=== PATIENT | male | born 1965 | race Caucasian/White ===

== ENCOUNTER 2016-07-14 22:58 | Inpatient (IN) ==
[2016-07-15 01:24] LABS: Basophils # 0.1 K/mcL (0.0-0.2); Basophils % 0.7 %; Eosinophils # 0.5 K/mcL (0.0-0.6); Eosinophils % 4.5 %; Hematocrit 40.6 % (37.5-50.1); Hemoglobin 13.3 g/dL (12.9-16.9); Immature Granulocytes % 0.4 % (0-4); Immature Platelets 1.8 % (1.1-6.1); Lymphocytes # 3.3 K/mcL (0.6-4.6); Lymphocytes % 32.2 %; Mean Corpuscular HGB Conc 32.8 g/dL (31.6-35.5); Mean Corpuscular Hemoglobin 28.9 pg (28.0-33.3); Mean Corpuscular Volume 88.3 fL (83.0-100.0); Mean Platelet Volume 10.1 fL (9.4-12.4); Monocytes # 0.6 K/mcL (0.0-1.3); Monocytes % 5.5 %; Neutrophils # 5.8 K/mcL (1.6-8.9); Platelet Count 339 K/mcL (140-400); Segmented Neutrophils % 56.7 %
[2016-07-15 01:30] LABS: Prothrombin Time 10.5 Seconds (9.4-12.1)
[2016-07-15 01:32] LABS: Activated Partial Thrombo Time 34.2 Seconds (26.0-36.0)
[2016-07-15 01:36] LABS: Calcium 9.2 mg/dL (8.6-10.8)
[2016-07-15 01:37] LABS: Albumin 3.8 g/dL (3.5-5.0); Bilirubin,Direct 0.1 mg/dL (0.0-0.5); Bilirubin,Indirect 0.1 mg/dL (0.0-1.2); Bilirubin,Total 0.2 mg/dL (0.2-1.2); Globulin 3.7 g/dL (2.4-3.5); Total Protein 7.5 g/dL (6.0-8.3)
[2016-07-15 01:52] LABS: Bilirubin,Urine Negative (Negative); Blood,Urine Negative (Negative); Clarity,Urine Clear (Clear); Color,Urine Yellow (Yellow); Glucose,Urine (UA) >=1000 mg/dL (Normal); Ketones,Urine Negative (Negative); Leukocyte Esterase,Urine Negative (Negative); Nitrite,Urine Negative (Negative); PH,Urine 5.5 pH Units (5.0-8.0); Protein,Urine Negative (Neg-Trace); Specific Gravity,Urine 1.025 (1.010-1.025); Urobilinogen,Urine Normal (Normal)
[2016-07-15] MEDS ORDERED: Albuterol 2.5 MG/3 ML NEBULIZER IH ONE (01:53)
[2016-07-15] MEDS ORDERED: Insulin Human Regular 10 UNIT in 0.9 % Sodium Chloride 10 ML IV ONE (01:53)
[2016-07-15] MEDS ORDERED: Calcium Gluconate 1,000 MG in D5% in Water 100 ML IVPB ONE (01:53)
[2016-07-15] MEDS: Sodium Bicarbonate 50 MEQ/50 ML VIAL IVP ONE ×2 (02:55→02:56)
[2016-07-15] MEDS ORDERED: Sodium Bicarbonate 50 MEQ/50 ML VIAL IVP ONE (03:52)
[2016-07-15] MEDS ORDERED: Lactulose Oral Soln 20 GM/30 ML UDC PO ONE (03:53)
[2016-07-15] MEDS: Sodium Bicarbonate 75 MEQ in 0.45 % Sodium Chloride 1,000 ML IVC SCH ×3 (04:34→21:38)
[2016-07-15] MEDS ORDERED: Naloxone 0.4 MG/ML INJ IVP PRN (05:06)
[2016-07-15] MEDS ORDERED: *HR* Promethazine 25 MG/ML VIAL IVP PRN (05:06)
[2016-07-15] MEDS ORDERED: Acetaminophen 325 MG TABLET PO PRN (05:06)
--- NOTE | 2016-07-15 05:15 | Emergency Department Note ---
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 Location: other (no pain, no complaints) Pain Scale: 0 Improves with: nothing Worsens with: nothing Associated symptoms: Reports: denies other symptoms Treatments Prior to Arrival: none - Related Data Previous Rx's Medication Instructions Recorded Albuterol Sulfate [Proair 90 mcg IH 4-6XD PRN 14 Days 06/02/15 Respiclick] Doxycycline 100 mg PO BID 7 Days 06/02/15 Ibuprofen [Motrin] 400 mg PO Q6HR 10 Days 06/02/15 Albuterol Sulfate [Albuterol 1 puff IH Q4H #1 inhaler 08/06/15 Inhaler] D-Methorphan Hb/P-Epd HCl/Bpm 5 ml PO TID #240 syrup 08/06/15 [Bromfed Dm Cough Syrup] Levofloxacin [Levaquin] 500 mg PO DAILY #7 tablet 08/06/15 TraMADol [Ultram] 50 mg PO TID #10 tablet 08/06/15 Amoxicillin/Clavulanate [Augmentin] 875 mg PO BIDWM 7 Days 08/12/15 Hydrocodone/Acetaminophen [[place] 1 tab PO QID PRN #10 tab 02/26/16 5-325 Tablet] Ibuprofen [Motrin] 600 mg PO TID PRN #30 tab 02/26/16 Hydrocodone/Acetaminophen [[place] 1 tab PO TID PRN #12 tab 03/12/16 5-325 Tablet] Naproxen [Naprosyn] 500 mg PO BID #20 tablet 03/12/16 Cephalexin [Keflex] 500 mg PO QID #40 capsule 05/09/16 HYDROcodone/Acet 5/325 mg [[place] 1 tab PO Q6H PRN #10 tab 05/09/16 5-325 mg] Cephalexin [Keflex] 500 mg PO BID #20 capsule 07/06/16 Sulfamethoxazole/Trimeth DS 1 each PO BID #20 tablet 07/06/16 [Bactrim DS] Allergies Allergy/AdvReac Type Severity Reaction Status Date / Time codeine Allergy Hives Verified 07/06/16 21:35 pregabalin [From Lyrica] Allergy Hives Verified 07/06/16 21:35 All systems ED: reviewed and negative except as stated. Constitutional: Denies: fever, chills, weakness, weight change, night sweats Eyes: Denies: vision change ENT ED: Denies: epistaxis, congestion, dysphagia Cardiovascular: Denies: chest pain, palpitations, dyspnea on exertion, orthopnea , edema, syncope Respiratory: Denies: cough, dyspnea, wheezes Gastrointestinal: Denies: abdominal pain, nausea, vomiting, diarrhea Genitourinary: Denies: urgency, dysuria, frequency, hematuria Musculoskeletal: Denies: back pain, neck pain, joint swelling Integumentary: Reports: other (healing wound on hand that was infected. Patient was given Bactrim and Keflex. He is still taking these antibiotics). Denies: rash Neurological: Denies: headache, weakness, numbness, paresthesias, confusion, abnormal gait, vertigo Endocrine: Denies: fatigue Hematological/Lymphatic: Denies: easy bleeding, easy bruising Allergic/Immunologic: Denies: facial swelling, urticaria, itchy eyes Past Medical History - Past Medical History Attestation: Yes The following information was validated with the patient. Source: patient Medical history: Reports: arthritis, CHF, COPD, CVA, diabetes, glaucoma, hyperlipidemia, hypertension, renal disease Surgical history: Reports: angioplasty/stent, appendectomy, cataract, herniorrhaphy Psychiatric history: Reports: anxiety, depression - Social History Smoking Status: Current every day smoker Smokeless Tobacco Status: No Alcohol use: Reports: rarely Drug use: Reports: none Physical Exam - General Limitations: no limitations General appearance: alert, in no apparent distress - Head Head exam: atraumatic, normocephalic, normal inspection - Eye Eye exam: Present: normal appearance, PERRL, EOMI. Absent: scleral icterus, conjunctival injection, periorbital swelling - ENT ENT exam: mucous membranes moist - Neck Neck exam: Present: normal inspection, full ROM, trachea midline - Chest Chest inspection: Present: normal inspection, symmetric chest wall rise - Respiratory Respiratory exam: Present: normal lung sounds bilaterally. Absent: respiratory distress - Cardiovascular Cardiovascular exam: Present: regular rate, normal rhythm, normal heart sounds - Abdominal Exam Abdominal exam: Present: soft, Non-Tender. Absent: distention, guarding, rebound, rigidity, mass - Extremities Exam Extremities exam: Present: full ROM, normal capillary refill, other (healing wound on hand). Absent: tenderness - Neurological Exam Neurological exam: Present: alert, oriented X3, CN II-XII intact - Psychiatric Psychiatric exam: Present: normal affect, normal mood - Skin Skin exam: Present: warm, dry, intact, normal color Course Course Narrative: patient presents at the recommendation of Dr. Francois - Intelligence Officer. He called the patient at home around 10pm and told him to go to the ER because his potassium was high. It was reportedly 7.5 earlier today. Patient denies any complaints. He has no pain he has had no N/V/D. He was recently started on two ABX. He denies any other new meds. Will check labs and treat hyperkalemia. Patient's K is 8, glucose is high and sodium is low. Order was given for insulin - along with other meds. Patient states that he gave himself 10.3 units of insulin via his pump when he found out that his sugar was >400. Hospitalist has been paged. Patient accepted. Additional medications requested by Hospitalist. These have been ordered. Case discussed with Dr. NARVAEZ as well. He has seen the patient and agrees with the plan. Vital Signs Temperature 97.4 F L 07/14/16 23:00 Pulse Rate 100 07/14/16 23:00 Respiratory Rate 16 07/14/16 23:00 Blood Pressure 130/73 07/14/16 23:00 O2 Sat by Pulse Oximetry 96 07/14/16 23:00 Temperature 97.4 F L 07/14/16 23:00 Pulse Rate 80 07/15/16 03:52 Respiratory Rate 22 07/15/16 03:52 Blood Pressure 123/90 07/15/16 03:52 O2 Sat by Pulse Oximetry 96 07/15/16 03:52 Oxygen Delivery Oxygen Delivery Room Air Medical Decision Making - Medical Records Medical records reviewed: Yes I reviewed the patient's medical records. - Lab Data Lab results reviewed: Yes I reviewed the patient's lab results. Lab results narrative: Laboratory Last Values WBC 10.2 K/mcL (4.3-11.1) 07/15/16 01:18 RBC 4.60 M/mcL (4.19-5.50) 07/15/16 01:18 Hgb 13.3 g/dL (12.9-16.9) 07/15/16 01:18 Hct 40.6 % (37.5-50.1) 07/15/16 01:18 MCV 88.3 fL (83.0-100.0) 07/15/16 01:18 MCH 28.9 pg (28.0-33.3) 07/15/16 01:18 MCHC 32.8 g/dL (31.6-35.5) 07/15/16 01:18 RDW 14.0 % (11.5-14.5) 07/15/16 01:18 Plt Count 339 K/mcL (140-400) 07/15/16 01:18 MPV 10.1 fL (9.4-12.4) 07/15/16 01:18 Immature Gran % 0.4 % (0-4) 07/15/16 01:18 Seg Neutrophils % 56.7 % 07/15/16 01:18 Lymphocytes % 32.2 % 07/15/16 01:18 Monocytes % 5.5 % 07/15/16 01:18 Eosinophils % 4.5 % 07/15/16 01:18 Basophils % 0.7 % 07/15/16 01:18 Neutrophils # 5.8 K/mcL (1.6-8.9) 07/15/16 01:18 Lymphocytes # 3.3 K/mcL (0.6-4.6) 07/15/16 01:18 Monocytes # 0.6 K/mcL (0.0-1.3) 07/15/16 01:18 Eosinophils # 0.5 K/mcL (0.0-0.6) 07/15/16 01:18 Basophils # 0.1 K/mcL (0.0-0.2) 07/15/16 01:18 Immature Plt Fraction 1.8 % (1.1-6.1) 07/15/16 01:18 PT 10.5 Seconds (9.4-12.1) 07/15/16 01:18 INR 1.0 07/15/16 01:18 APTT 34.2 Seconds (26.0-36.0) 07/15/16 01:18 Sodium 128 mEq/L (136-145) L 07/15/16 01:18 Potassium 8.0 mEq/L (3.5-4.5) H* 07/15/16 01:18 Chloride 106 mEq/L (98-109) 07/15/16 01:18 Carbon Dioxide 14 mEq/L (19-29) L 07/15/16 01:18 BUN 37 mg/dL (8-26) H 07/15/16 01:18 Creatinine 2.41 mg/dL (0.72-1.25) H 07/15/16 01:18 Est GFR ( Amer) 34 (> 60) L 07/15/16 01:18 Est GFR (Non-Af Amer) 28 (> 60) L 07/15/16 01:18 BUN/Creatinine Ratio 15 (6-26) 07/15/16 01:18 Glucose 411 mg/dL (70-99) H 07/15/16 01:18 Calculated Osmolality 292 (280-300) 07/15/16 01:18 Calcium 9.2 mg/dL (8.6-10.8) 07/15/16 01:18 Total Bilirubin 0.2 mg/dL (0.2-1.2) 07/15/16 01:18 Direct Bilirubin 0.1 mg/dL (0.0-0.5) 07/15/16 01:18 Indirect Bilirubin 0.1 mg/dL (0.0-1.2) 07/15/16 01:18 AST 14 Units/L (5-34) 07/15/16 01:18 ALT 12 Units/L (0-55) 07/15/16 01:18 Alkaline Phosphatase 108 Units/L (38-126) 07/15/16 01:18 Troponin I 0.00 ng/mL (0-0.03) 07/15/16 01:18 B-Natriuretic Peptide < 10 pg/mL (0-100) 07/15/16 01:18 Serum Total Protein 7.5 g/dL (6.0-8.3) 07/15/16 01:18 Albumin 3.8 g/dL (3.5-5.0) 07/15/16 01:18 Globulin 3.7 g/dL (2.4-3.5) H 07/15/16 01:18 Albumin/Globulin Ratio 1.0 (1.1-2.2) L 07/15/16 01:18 Urine Color Yellow (Yellow) 07/15/16 01:48 Urine Clarity Clear (Clear) 07/15/16 01:48 Urine pH 5.5 pH Units (5.0-8.0) 07/15/16 01:48 Ur Specific [place] 1.025 (1.010-1.025) 07/15/16 01:48 Urine Protein Negative mg/dL (Neg-Trace) 07/15/16 01:48 Urine Glucose (UA) >=1000 mg/dL (Normal) H 07/15/16 01:48 Urine Ketones Negative mg/dL (Negative) 07/15/16 01:48 Urine Blood Negative (Negative) 07/15/16 01:48 Urine Nitrite Negative (Negative) 07/15/16 01:48 Urine Bilirubin Negative (Negative) 07/15/16 01:48 Urine Urobilinogen Normal mg/dL (Normal) 07/15/16 01:48 Ur Leukocyte Esterase Negative (Negative) 07/15/16 01:48 Ur Culture Indicated? NO (NO) 07/15/16 01:48 Result diagrams: 07/15/16 01:18 07/15/16 01:18 Lab Results 07/15/16 07/15/16 07/15/16 Range/Units 01:18 01:18 01:18 WBC (4.3-11.1) K/mcL RBC (4.19-5.50) M/mcL Hgb (12.9-16.9) g/dL Hct (37.5-50.1) % MCV (83.0-100.0) fL MCH (28.0-33.3) pg MCHC (31.6-35.5) g/dL RDW (11.5-14.5) % Plt Count (140-400) K/mcL MPV (9.4-12.4) fL Immature Gran % (0-4) % Seg Neutrophils % % Lymphocytes % % Monocytes % % Eosinophils % % Basophils % % Neutrophils # (1.6-8.9) K/mcL Lymphocytes # (0.6-4.6) K/mcL Monocytes # (0.0-1.3) K/mcL Eosinophils # (0.0-0.6) K/mcL Basophils # (0.0-0.2) K/mcL Immature Plt Fraction (1.1-6.1) % PT 10.5 (9.4-12.1) Seconds INR 1.0 APTT 34.2 (26.0-36.0) Seconds Sodium (136-145) mEq/L Potassium (3.5-4.5) mEq/L Chloride (98-109) mEq/L Carbon Dioxide (19-29) mEq/L BUN (8-26) mg/dL Creatinine (0.72-1.25) mg/dL Est GFR ( Amer) (> 60) Est GFR (Non-Af Amer) (> 60) BUN/Creatinine Ratio (6-26) Glucose (70-99) mg/dL Calculated Osmolality (280-300) Calcium (8.6-10.8) mg/dL Total Bilirubin 0.2 (0.2-1.2) mg/dL Direct Bilirubin 0.1 (0.0-0.5) mg/dL Indirect Bilirubin 0.1 (0.0-1.2) mg/dL AST 14 (5-34) Units/L ALT 12 (0-55) Units/L Alkaline Phosphatase 108 (38-126) Units/L Troponin I (0-0.03) ng/mL B-Natriuretic Peptide < 10 (0-100) pg/mL Serum Total Protein 7.5 (6.0-8.3) g/dL Albumin 3.8 (3.5-5.0) g/dL Globulin 3.7 H (2.4-3.5) g/dL Albumin/Globulin Ratio 1.0 L (1.1-2.2) Urine Color (Yellow) Urine Clarity (Clear) Urine pH (5.0-8.0) pH Units Ur Specific [place] (1.010-1.025) Urine Protein (Neg-Trace) mg/dL Urine Glucose (UA) (Normal) mg/dL Urine Ketones (Negative) mg/dL Urine Blood (Negative) Urine Nitrite (Negative) Urine Bilirubin (Negative) Urine Urobilinogen (Normal) mg/dL Ur Leukocyte Esterase (Negative) Ur Culture Indicated? (NO) 07/15/16 07/15/16 07/15/16 Range/Units 01:18 01:18 01:18 WBC 10.2 (4.3-11.1) K/mcL RBC 4.60 (4.19-5.50) M/mcL Hgb 13.3 (12.9-16.9) g/dL Hct 40.6 (37.5-50.1) % MCV 88.3 (83.0-100.0) fL MCH 28.9 (28.0-33.3) pg MCHC 32.8 (31.6-35.5) g/dL RDW 14.0 (11.5-14.5) % Plt Count 339 (140-400) K/mcL MPV 10.1 (9.4-12.4) fL Immature Gran % 0.4 (0-4) % Seg Neutrophils % 56.7 % Lymphocytes % 32.2 % Monocytes % 5.5 % Eosinophils % 4.5 % Basophils % 0.7 % Neutrophils # 5.8 (1.6-8.9) K/mcL Lymphocytes # 3.3 (0.6-4.6) K/mcL Monocytes # 0.6 (0.0-1.3) K/mcL Eosinophils # 0.5 (0.0-0.6) K/mcL Basophils # 0.1 (0.0-0.2) K/mcL Immature Plt Fraction 1.8 (1.1-6.1) % PT (9.4-12.1) Seconds INR APTT (26.0-36.0) Seconds Sodium 128 L (136-145) mEq/L Potassium 8.0 H* (3.5-4.5) mEq/L Chloride 106 (98-109) mEq/L Carbon Dioxide 14 L (19-29) mEq/L BUN 37 H (8-26) mg/dL Creatinine 2.41 H (0.72-1.25) mg/dL Est GFR ( Amer) 34 L (> 60) Est GFR (Non-Af Amer) 28 L (> 60) BUN/Creatinine Ratio 15 (6-26) Glucose 411 H (70-99) mg/dL Calculated Osmolality 292 (280-300) Calcium 9.2 (8.6-10.8) mg/dL Total Bilirubin (0.2-1.2) mg/dL Direct Bilirubin (0.0-0.5) mg/dL Indirect Bilirubin (0.0-1.2) mg/dL AST (5-34) Units/L ALT (0-55) Units/L Alkaline Phosphatase (38-126) Units/L Troponin I 0.00 (0-0.03) ng/mL B-Natriuretic Peptide (0-100) pg/mL Serum Total Protein (6.0-8.3) g/dL Albumin (3.5-5.0) g/dL Globulin (2.4-3.5) g/dL Albumin/Globulin Ratio (1.1-2.2) Urine Color (Yellow) Urine Clarity (Clear) Urine pH (5.0-8.0) pH Units Ur Specific [place] (1.010-1.025) Urine Protein (Neg-Trace) mg/dL Urine Glucose (UA) (Normal) mg/dL Urine Ketones (Negative) mg/dL Urine Blood (Negative) Urine Nitrite (Negative) Urine Bilirubin (Negative) Urine Urobilinogen (Normal) mg/dL Ur Leukocyte Esterase (Negative) Ur Culture Indicated? (NO) 07/15/16 Range/Units 01:48 WBC (4.3-11.1) K/mcL RBC (4.19-5.50) M/mcL Hgb (12.9-16.9) g/dL Hct (37.5-50.1) % MCV (83.0-100.0) fL MCH (28.0-33.3) pg MCHC (31.6-35.5) g/dL RDW (11.5-14.5) % Plt Count (140-400) K/mcL MPV (9.4-12.4) fL Immature Gran % (0-4) % Seg Neutrophils % % Lymphocytes % % Monocytes % % Eosinophils % % Basophils % % Neutrophils # (1.6-8.9) K/mcL Lymphocytes # (0.6-4.6) K/mcL Monocytes # (0.0-1.3) K/mcL Eosinophils # (0.0-0.6) K/mcL Basophils # (0.0-0.2) K/mcL Immature Plt Fraction (1.1-6.1) % PT (9.4-12.1) Seconds INR APTT (26.0-36.0) Seconds Sodium (136-145) mEq/L Potassium (3.5-4.5) mEq/L Chloride (98-109) mEq/L Carbon Dioxide (19-29) mEq/L BUN (8-26) mg/dL Creatinine (0.72-1.25) mg/dL Est GFR ( Amer) (> 60) Est GFR (Non-Af Amer) (> 60) BUN/Creatinine Ratio (6-26) Glucose (70-99) mg/dL Calculated Osmolality (280-300) Calcium (8.6-10.8) mg/dL Total Bilirubin (0.2-1.2) mg/dL Direct Bilirubin (0.0-0.5) mg/dL Indirect Bilirubin (0.0-1.2) mg/dL AST (5-34) Units/L ALT (0-55) Units/L Alkaline Phosphatase (38-126) Units/L Troponin I (0-0.03) ng/mL B-Natriuretic Peptide (0-100) pg/mL Serum Total Protein (6.0-8.3) g/dL Albumin (3.5-5.0) g/dL Globulin (2.4-3.5) g/dL Albumin/Globulin Ratio (1.1-2.2) Urine Color Yellow (Yellow) Urine Clarity Clear (Clear) Urine pH 5.5 (5.0-8.0) pH Units Ur Specific [place] 1.025 (1.010-1.025) Urine Protein Negative (Neg-Trace) mg/dL Urine Glucose (UA) >=1000 H (Normal) mg/dL Urine Ketones Negative (Negative) mg/dL Urine Blood Negative (Negative) Urine Nitrite Negative (Negative) Urine Bilirubin Negative (Negative) Urine Urobilinogen Normal (Normal) mg/dL Ur Leukocyte Esterase Negative (Negative) Ur Culture Indicated? NO (NO) - Radiology Data Radiology results reviewed: Yes I reviewed the patient's radiology results. Chest X-Ray 07/15/16 01:04 IMPRESSION: Negative portable chest. D/ / Meng Melgoza MD / Meng Melgoza MD Interpreting Provider: Meng Melgoza MD - EKG Data EKG #1 EKG attestation: Yes I reviewed and interpreted this EKG. EKG shows normal: sinus rhythm Rate: normal Rhythm: NSR [place]/QRS: normal When compared to previous EKG there are: previous EKG unavailable Interpretation: other (normal except for peaked T waves)
--- NOTE | 2016-07-15 05:54 | Internal Med History&Physical ---
Date of Encounter: 07/15/16 Time of Encounter: 05:00 Assessment and Plan (1) Acute kidney injury superimposed on CKD Current visit: Yes Status: Acute . (2) Uncontrolled diabetes mellitus Current visit: Yes Status: Acute . Qualifiers: Diabetes mellitus type: type 1 Diabetes mellitus complication status: with kidney complications Diabetes mellitus complication detail: with other kidney complication Qualified Code(s): E10.29 - Type 1 diabetes mellitus with other diabetic kidney complication; E10.65 - Type 1 diabetes mellitus with hyperglycemia (3) Metabolic acidosis Current visit: Yes Status: Acute . (4) Hyponatremia Current visit: Yes Status: Acute . (5) Hyperkalemia Current visit: Yes Status: Acute . (6) H/O noncompliance with medical treatment, presenting hazards to health Current visit: Yes Status: Acute . (7) Nicotine dependence with nicotine-induced disorder Current visit: Yes Status: Chronic . Qualifiers: Nicotine product type: cigarettes Qualified Code(s): F17.219 - Nicotine dependence, cigarettes, with unspecified nicotine-induced disorders Internal Medicine - H&P: HPI Chief complaint: High potassium on blood test Admitted From: Emergency Dept Plans for Post Hospital Care: Home History of present illness: Mr. Stone is a 51 year old male significant history for uncontrolled type 1 diabetes mellitus, H/O rec DKA/ rec hyperkalemias, COPD/emphysema, hypertension , dyslipidemia, CAD/PTCAstents, ischemic CMP/, H/O CVA, GERD, CKD III, BPH/ prostatism, diabetic nephropathy, diabetic peripheral neuropathy, glaucoma, depression anxiety, osteoarthritis, osteopenia, vitamin D deficiency, nicotine dependency The patient was visited and interviewed and examined. The patient is admitted to [facility] via the emergency department when he presents in the company of family with concerns regarding recent abnormal laboratory tests. Recent blood work was obtained by patient's home visitor home base head start to assess his current status. He was informed to present to the emergency department due to very high potassium measurement noted reportedly at 7.5. Patient was asymptomatic at the time of presentation denying any feelings of pain or weakness nausea vomiting lethargy and malaise. The patient had been initiated on oral antibiotic on July 06 to treat a cellulitis of his left hand which included cephalexin and Bactrim DS twice daily for 10 days for presumed MRSA infection. Denied any other new developments or indiscretions. Findings in the ED: Temperature 97.4 pulse 80-100 respirations 16-22 BP 120-130/73-92 saturation 96% at room air. WBC 10.2 hemoglobin 13.3 platelets 339,000. Differential normal. PT 10.5 INR 1 PTT 34.2. Metabolic panel findings sodium 128 potassium 8.0. Carbon dioxide 14. BUN 37 creatinine 2.41 GFR 28. Glucose 411 osmolality 292. Hepatic function normal. Troponin 0.00 BNP 10. Urinalysis large glucose. EKG normal sinus rhythm. No acute ischemic changes. Peaked T waves noted. Chest x-ray reveals no acute or active cardiopulmonary process. Preliminary impression suggests acute on chronic, stage IV renal failure with associated severe metabolic acidosis and severe hyperkalemia. Presentation is complicated by poorly controlled diabetes mellitus with presentation of marked hyperglycemia and glycosuria. Significant metabolic and acid-base derangements are apparent. Systemic inflammatory response criteria met. Allergy for rapid decline in renal function may have been concomitant use of recent antibiotic therapy specifically Bactrim DS in the setting of relative dehydration and potential adverse drug drug interaction with other concomitant medications taken at the time. Further investigation will be pursued. She presents with a risk for acute clinical decline and morbidity given his presenting chief complaint, clinical findings and comorbidities. History is further complicated by reports of inconsistent follow-through with medical treatment recommendations and therapies. Workup and treatments will progress comprehensively Cumulative laboratory and radiographic data base was reviewed, considered and discussed. Pertinent ancillary medical records including ECW and PCI documentation, when available, was reviewed and considered. Given the patient's presenting concerns, past medical history, clinical findings and symptoms, he is admitted at this time will undergo further evaluation and disposition. Orders were written as per computerized physician mill recorder system.......................................................................... .................... Consultative opinion and will be sought as clinical circumstances justify. Initial consultative opinion has been requested of nephrology. Pain management needs will be addressed. Laboratory and radiographic data base will be updated as appropriate. Studies include: Cultures of blood and urine and sputum, CPK, cardiac injury panel, BNP , metabolic and hematologic panel, magnesium, phosphorus, ionized calcium, thyroid panel, lipid profile, A1c, C-peptide, CRP, sedimentation rate, UDS, respiratory infection profile, respiratory virus panel, blood gas, uric acid, random urine assays, amylase, lipase, coagulation profile, lactic acid, serologies, etc. Precautions: Aspiration, fall, seizure, delirium protocol/surveillance initiated. Telemetry with continuous hemodynamic monitoring and pulse oximetry initiated. Empiric antibody coverage: Intravenous Rocephin and azithromycin pending culture data. Special studies: CT abd/pelvis, chest x-ray, telemetry, EKG, bladder scan, postvoid residual, ultrasound retroperitoneum. Pulmonary toilet: Incentive spirometry. When necessary aerosol bronchodilator, mucolytic, antitussive. Supplemental oxygen. Corticosteroid therapy prn. CPAP/ BiPAP supplemental oxygen delivery prn. Aerosol Mucomyst therapy prn. Fluid and electrolyte repletion efforts will proceed. Careful attention to fluid balance and renal recovery will be emphasized. Avoidance of nephrotoxic exposure and adverse drug drug interaction in the setting of impaired renal function will be monitored closely. Correction of metabolic and acid-base deficits will be emphasized. Acute coronary syndrome protocol/surveillance initiated. DVT and PUD prophylaxis initiated: PPI therapy, intermittent pneumatic cuffs/ TEDS. Subcutaneous heparin. Early ambulation will be encouraged. Immunization updates recommended. Influenza and pneumococcal vaccinations as part of ongoing preventative healthcare recommendations strongly recommended. Smoking cessation counseling briefly addressed. Patient accepts nicotine substitution during this hospitalization. Advanced care directive discussion briefly addressed. Patient does not declare any healthcare restrictions at this time. Cardiovascular risk appraisal and cardiovascular risk reduction efforts will be emphasized. Physical and occupational therapy may be consulted to evaluate/assess patient's functional capacity and progress mobility if circumstances warrant. Sliding scale and basal insulin coverage, ADA/renal dietary restraint and schedule an as-needed basis fingerstick glucose assessments were initiated. Nutrition/diabetes education counseling may be considered as circumstances justify. Outpatient medication schedules will be reviewed confirmed and facilitated as appropriate. Reconciliation of home treatments including adjustments, substitutions and reintroduction into the treatment regimen will address necessary maintenance therapies for chronic pre-existing medical conditions. Plan of care has been reviewed and discussed in detail with the patient. Questions addressed. Hospital course is dependent upon collective clinical findings, treatment response and potential consultative interventions. Patient is at risk for further acute clinical decline and morbidity due to his presenting chief complaints, findings and comorbidities. Condition is serious. Prognosis is guarded. CODE STATUS is full. Past Med Surg Social Fam HX - Past Medical History Source: old records reviewed Medical history: arthritis, cardiomyopathy, CHF, COPD, coronary artery disease, CVA, diabetes, GERD, glaucoma, hyperlipidemia, hypertension, myocardial infarction, osteoporosis, peripheral artery disease, renal disease, TIA, other Psychiatric history: anxiety, depression - Past Surgical History Surgical History: angioplasty/stent, appendectomy, cataract, herniorrhaphy, other (Tonsillectomy adenoidectomy) - Social History Smoking Status: Current every day smoker Smokeless Tobacco Status: No Alcohol use: rarely Drug use: none Occupational status: unemployed Current living situation: Home - Independent Activity Level: Independent ambulation, Mostly sedentary Recent Out of Country Travel Within the Last 8 Weeks: No Exposure or Possible Exposure to Illness During Travel: No Internal Medicine - H&P: Meds Albuterol Sulfate [Proair Hfa] 2 puff IH Q4H PRN 07/15/16 [History] Aspirin 325 mg PO DAILY 07/15/16 [History] Atorvastatin Calcium [Lipitor] 80 mg PO HS 07/15/16 [History] Beclomethasone Diprop 40mcg [Qvar 40 mcg] 1 puff IH BID 07/15/16 [History] Carvedilol [Coreg] 6.25 mg PO BIDWM 07/15/16 [History] Cephalexin [Cephalexin] 500 mg PO BID 07/15/16 [History] Clopidogrel [Plavix] 75 mg PO DAILY 07/15/16 [History] Cyclobenzaprine HCl 30 mg PO DAILY 07/15/16 [History] Dorzolamide/Timolol [Cosopt] 1 drop BOTH EYES BID 07/15/16 [History] Escitalopram [Lexapro] 20 mg PO DAILY 07/15/16 [History] Gabapentin [Neurontin] 800 mg PO BID 07/15/16 [History] Glucagon,Human Recombinant [Glucagon Emergency Kit] 1 each IM DAILY PRN [History] Insulin ASPART [Novolog] 40 unit IJ DAILY PRN 07/15/16 [History] Nitroglycerin [Nitrostat] 0.4 mg SL Q5M PRN 07/15/16 [History] Pantoprazole Sodium [Protonix] 40 mg PO DAILY 07/15/16 [History] Sulfamethoxazole/Trimeth DS [Bactrim DS] 1 each PO BID 07/15/16 [History] Allergies codeine Allergy (Verified 07/06/16 21:35) Hives pregabalin [From Lyrica] Allergy (Verified 07/06/16 21:35) Hives All Systems PM: A 10-system review of systems was performed and is negative for pertinent findings except as documented above in the HPI. - Constitutional Constitutional: as per HPI, malaise, no chills, no fever(s), no night sweats - EENT Eyes: as per HPI, no change in vision, no discharge, no pain, no photophobia Ears: as per HPI, no ear discharge, no ear pain, no tinnitus Nose, mouth and throat: as per HPI, no dysphagia, no nasal discharge, no neck pain, no sore throat - Cardiovascular Cardiovascular ROS IM: as per HPI, no chest pain, no diaphoresis, no dyspnea, no lightheadedness, no palpitations, no syncope - Respiratory Respiratory: as per HPI, no cough, no dyspnea, no wheezing, no excessive phlegm production - Gastrointestinal Gastrointestinal: as per HPI, no abdominal pain, no diarrhea, no hematemesis, no hematochezia, no melena, no nausea, no vomiting - Genitourinary Genitourinary ROS male: as per HPI - Musculoskeletal Musculoskeletal ROS IM: as per HPI, no numbness, no tingling - Integumentary Integumentary IM: as per HPI, no rash, no unusual bruising - Neurological Neurological ROS: as per HPI, no confusion, no convulsions, no focal weakness, no numbness, no tingling, no tremor(s) - Psychiatric Psychiatric: as per HPI - Endocrine Endocrine IM: as per HPI - Hematologic/Lymphatic Hematologic/Lymphatic: as per HPI, no easy bruising - Allergic/Immunologic Allergic/Immunologic: as per HPI - Constitutional Vitals: Temp Pulse Resp BP Pulse Ox 97.8 F 80 18 126/88 96 07/15/16 05:42 07/15/16 03:52 07/15/16 05:42 07/15/16 05:42 07/15/16 03:52 General appearance: Present: cooperative, disheveled, mild distress, A&O X 3, answers questions appropriately - Head Head exam: Present: atraumatic, normocephalic - Eye Eye exam: Present: EOMI, PERRL, conjuntiva pink, sclera anicteric Pupils: Present: normal accommodation, PERRL - ENT ENT exam: Present: mucous membranes dry, normal oropharynx - Neck Neck exam general surgery: Present: full ROM, supple, trachea midline. Absent: lymphadenopathy, nuchal rigidity - Respiratory Respiratory exam: Present: chest wall tenderness, decreased breath sounds, rhonchi. Absent: accessory muscle use, rales, wheezes - Cardiovascular Cardiovascular exam: Present: distant heart sounds, RRR, +S1, +S2, tachycardia. Absent: diastolic murmur, gallop, rubs, systolic murmur - GI/Abdominal GI/Abdominal exam: Present: diminished bowel sounds, soft, no peritoneal signs. Absent: distended, tenderness - Extremities Exam Extremities exam: Present: full ROM, warm, radial pulses palpable and symetrical. Absent: calf tenderness, cyanotic, pedal edema - Expanded Upper Extremities Exam Hand wrist exam: Present: abrasion, erythema, full ROM, swelling, tenderness. Absent: crepitus, ecchymosis - Neurological Exam Neurological exam: Present: alert, altered, CN II-XII intact, oriented X3, no focal deficits. Absent: pronater drift, facial droop, speech deficit - Expanded Neurological Exam Neurological exam expanded: Present: protecting the airway. Absent: ataxia, expressive aphasia, receptive aphasia Patient oriented to: Present: person, place, time Speech: Present: fluid speech Coma Scale Eye Opening: Spontaneous Coma Scale Motor Response: Obeys Commands Coma Scale Verbal Response: Oriented Coma Scale Total: 15 - Psychiatric Psychiatric exam: Present: anxious, normal affect - Expanded Psychiatric Exam Focused psych exam: Present: restlessness - Skin Skin exam: Present: dry, excoriation, intact, warm. Absent: petechiae, rash, urticaria, vesicles Internal Med - H&P Results - Labs CBC & Chem 7: 07/15/16 01:18 07/16/16 03:07 - Impressions Vital Signs Temp Pulse Resp BP Pulse Ox 07/15/16 05:42 97.8 F 18 126/88 07/15/16 03:52 80 22 123/90 96 07/15/16 01:18 81 16 107/85 96 07/14/16 23:00 97.4 F L 100 16 130/73 96 Intake and Output 07/14/16 07/14/16 07/15/16 15:59 23:59 07:59 Intake Total 110 / 110 Balance 110 / 110 Intake: IV Fluids 110 / 110 Calcium Gluconate 1,000 110 / 110 MG In Dextrose 5% 100 ML @ 220 mls/hr IVPB ONCE ONE Rx#:[id number] Other: Weight 80.739 kg Short CBC 07/15/16 Range/Units 01:18 WBC 10.2 (4.3-11.1) K/mcL Hgb 13.3 (12.9-16.9) g/dL Hct 40.6 (37.5-50.1) % Plt Count 339 (140-400) K/mcL Neutrophils # 5.8 (1.6-8.9) K/mcL BMP 07/15/16 Range/Units 01:18 Sodium 128 L (136-145) mEq/L Potassium 8.0 H* (3.5-4.5) mEq/L Chloride 106 (98-109) mEq/L Carbon Dioxide 14 L (19-29) mEq/L BUN 37 H (8-26) mg/dL Creatinine 2.41 H (0.72-1.25) mg/dL Glucose 411 H (70-99) mg/dL Calcium 9.2 (8.6-10.8) mg/dL Cardiac Enzymes 07/15/16 Range/Units 01:18 Troponin I 0.00 (0-0.03) ng/mL Liver Function 07/15/16 Range/Units 01:18 Total Bilirubin 0.2 (0.2-1.2) mg/dL Direct Bilirubin 0.1 (0.0-0.5) mg/dL AST 14 (5-34) Units/L ALT 12 (0-55) Units/L Alkaline Phosphatase 108 (38-126) Units/L Albumin 3.8 (3.5-5.0) g/dL Urine 07/15/16 Range/Units 01:48 Urine Color Yellow (Yellow) Urine Clarity Clear (Clear) Urine pH 5.5 (5.0-8.0) pH Units Ur Specific [place] 1.025 (1.010-1.025) Urine Protein Negative (Neg-Trace) mg/dL Urine Glucose (UA) >=1000 H (Normal) mg/dL Abnormal lab results Sodium 128 mEq/L (136-145) L 07/15/16 01:18 Potassium 8.0 mEq/L (3.5-4.5) H* 07/15/16 01:18 Carbon Dioxide 14 mEq/L (19-29) L 07/15/16 01:18 BUN 37 mg/dL (8-26) H 07/15/16 01:18 Creatinine 2.41 mg/dL (0.72-1.25) H 07/15/16 01:18 Est GFR ( Amer) 34 (> 60) L 07/15/16 01:18 Est GFR (Non-Af Amer) 28 (> 60) L 07/15/16 01:18 Glucose 411 mg/dL (70-99) H 07/15/16 01:18 Globulin 3.7 g/dL (2.4-3.5) H 07/15/16 01:18 Albumin/Globulin Ratio 1.0 (1.1-2.2) L 07/15/16 01:18 Urine Glucose (UA) >=1000 mg/dL (Normal) H 07/15/16 01:48 Allergies Allergy/AdvReac Type Severity Reaction Status Date / Time codeine Allergy Hives Verified 07/06/16 21:35 pregabalin [From Lyrica] Allergy Hives Verified 07/06/16 21:35 Laboratory Results WBC 10.2 K/mcL (4.3-11.1) 07/15/16 01:18 RBC 4.60 M/mcL (4.19-5.50) 07/15/16 01:18 Hgb 13.3 g/dL (12.9-16.9) 07/15/16 01:18 Hct 40.6 % (37.5-50.1) 07/15/16 01:18 MCV 88.3 fL (83.0-100.0) 07/15/16 01:18 MCH 28.9 pg (28.0-33.3) 07/15/16 01:18 MCHC 32.8 g/dL (31.6-35.5) 07/15/16 01:18 RDW 14.0 % (11.5-14.5) 07/15/16 01:18 Plt Count 339 K/mcL (140-400) 07/15/16 01:18 MPV 10.1 fL (9.4-12.4) 07/15/16 01:18 Immature Gran % 0.4 % (0-4) 07/15/16 01:18 Seg Neutrophils % 56.7 % 07/15/16 01:18 Lymphocytes % 32.2 % 07/15/16 01:18 Monocytes % 5.5 % 07/15/16 01:18 Eosinophils % 4.5 % 07/15/16 01:18 Basophils % 0.7 % 07/15/16 01:18 Neutrophils # 5.8 K/mcL (1.6-8.9) 07/15/16 01:18 Lymphocytes # 3.3 K/mcL (0.6-4.6) 07/15/16 01:18 Monocytes # 0.6 K/mcL (0.0-1.3) 07/15/16 01:18 Eosinophils # 0.5 K/mcL (0.0-0.6) 07/15/16 01:18 Basophils # 0.1 K/mcL (0.0-0.2) 07/15/16 01:18 Immature Plt Fraction 1.8 % (1.1-6.1) 07/15/16 01: PT 10.5 Seconds (9.4-12.1) 07/15/16 01:18 INR 1.0 07/15/16 01: APTT 34.2 Seconds (26.0-36.0) 07/15/16 01:18 Sodium 128 mEq/L (136-145) L 07/15/16 01:18 Potassium 8.0 mEq/L (3.5-4.5) H* 07/15/16 01:18 Chloride 106 mEq/L (98-109) 07/15/16 01:18 Carbon Dioxide 14 mEq/L (19-29) L 07/15/16 01:18 BUN 37 mg/dL (8-26) H 07/15/16 01:18 Creatinine 2.41 mg/dL (0.72-1.25) H 07/15/16 01:18 Est GFR ( Amer) 34 (> 60) L 07/15/16 01:18 Est GFR (Non-Af Amer) 28 (> 60) L 07/15/16 01:18 BUN/Creatinine Ratio 15 (6-26) 07/15/16 01:18 Glucose 411 mg/dL (70-99) H 07/15/16 01:18 Calculated Osmolality 292 (280-300) 07/15/16 01:18 Calcium 9.2 mg/dL (8.6-10.8) 07/15/16 01:18 Total Bilirubin 0.2 mg/dL (0.2-1.2) 07/15/16 01:18 Direct Bilirubin 0.1 mg/dL (0.0-0.5) 07/15/16 01:18 Indirect Bilirubin 0.1 mg/dL (0.0-1.2) 07/15/16 01:18 AST 14 Units/L (5-34) 07/15/16 01:18 ALT 12 Units/L (0-55) 07/15/16 01:18 Alkaline Phosphatase 108 Units/L (38-126) 07/15/16 01:18 Troponin I 0.00 ng/mL (0-0.03) 07/15/16 01:18 B-Natriuretic Peptide < 10 pg/mL (0-100) 07/15/16 01:18 Serum Total Protein 7.5 g/dL (6.0-8.3) 07/15/16 01:18 Albumin 3.8 g/dL (3.5-5.0) 07/15/16 01:18 Globulin 3.7 g/dL (2.4-3.5) H 07/15/16 01:18 Albumin/Globulin Ratio 1.0 (1.1-2.2) L 07/15/16 01:18 Urine Color Yellow (Yellow) 07/15/16 01:48 Urine Clarity Clear (Clear) 07/15/16 01:48 Urine pH 5.5 pH Units (5.0-8.0) 07/15/16 01:48 Ur Specific [place] 1.025 (1.010-1.025) 07/15/16 01:48 Urine Protein Negative mg/dL (Neg-Trace) 07/15/16 01:48 Urine Glucose (UA) >=1000 mg/dL (Normal) H 07/15/16 01:48 Urine Ketones Negative mg/dL (Negative) 07/15/16 01:48 Urine Blood Negative (Negative) 07/15/16 01:48 Urine Nitrite Negative (Negative) 07/15/16 01:48 Urine Bilirubin Negative (Negative) 07/15/16 01:48 Urine Urobilinogen Normal mg/dL (Normal) 07/15/16 01:48 Ur Leukocyte Esterase Negative (Negative) 07/15/16 01:48 Ur Culture Indicated? NO (NO) 07/15/16 01:48 Impressions Chest X-Ray 07/15/16 01:04 IMPRESSION: Negative portable chest. D/ / Meng Melgoza MD / Meng Melgoza MD Interpreting Provider: Meng Melgoza MD
[2016-07-15 06:09] LABS: Magnesium 1.9 mg/dL (1.6-2.6); Phosphorous 5.1 mg/dL (2.3-4.7)
[2016-07-15 06:10] LABS: Calcium 9.9 mg/dL (8.6-10.8)
[2016-07-15 06:11] LABS: Potassium 6.6 mEq/L (3.5-4.5)
[2016-07-15] MEDS: Pantoprazole 40 MG VIAL IVP SCH (08:05)
[2016-07-15] MEDS: *HR* Heparin 5,000 UNIT/ML VIAL SQ SCH ×3 (08:05→23:18)
[2016-07-15] MEDS ORDERED: Nitroglycerin 0.4 MG TAB.SUBL SL PRN (09:46)
[2016-07-15] MEDS ORDERED: Dextrose Gel 15 GM PO PRN ×2 (09:48)
[2016-07-15] MEDS ORDERED: *HR* Dextrose 50 % in Water (Syg) 50 ML SYRINGE IVP PRN (09:48)
[2016-07-15] MEDS ORDERED: D5% in Water 1,000 ML IV PRN (09:48)
--- NOTE | 2016-07-15 11:22 | Nephrology Consult Note ---
Date of Encounter: 07/15/16 Time of Encounter: 11:18 Assessment and Plan (1) Acute kidney injury superimposed on CKD Current Visit: Yes Status: Acute Mild TORRIE on CKD Stage 3b. I think he is now at a new baseline around 2.1. He has some progression of his CKD secondary to uncontrolled DM1. Looking at his outpatient records he seems nonadherant to medical recommendations. Continue with supplemental IV fluids. Adjust medications for renal dysfunction. Avoid nephrotoxins. He will need to follow with Dr. John PETERSON after discharge. Check BMP weekly x 3 to follow his potassium level. He should be discharged with a supply of kayexalate to use if his potassium is greatly elevated as an outpatient. For hyperkalemia - medical management. He can be discharged on a loop diuretic and instructed to avoid high potassium foods. He will need to monitor his BP and renal function on the diuretic. I will consult nutrition to assist with diet education. For acidosis - agree with intravenous bicarbonate. He should be discharged on oral bicarbonate. Of note the patient is stating that he does not want dialysis under any circumstances. Fortunately he does not need ANESTHESIA TECHNICIAN at this time, but this may need to be an ongoing education. Ok for discharge from renal standpoint once his potassium is at a normal level. Have potassium checked 2-3 days after discharge. (2) H/O noncompliance with medical treatment, presenting hazards to health Current Visit: Yes Status: Acute Nonadherant with medical recommendations. (3) Hyperkalemia Current Visit: Yes Status: Acute see ckd (4) Uncontrolled diabetes mellitus Current Visit: Yes Status: Acute Defer management to primary team. He is on an insulin pump. Recommend diabetic education. Qualifiers: Diabetes mellitus type: type 1 Diabetes mellitus complication status: with kidney complications Diabetes mellitus complication detail: with other kidney complication Qualified Code(s): E10.29 - Type 1 diabetes mellitus with other diabetic kidney complication; E10.65 - Type 1 diabetes mellitus with hyperglycemia (5) Nicotine dependence with nicotine-induced disorder Current Visit: Yes Status: Chronic per primary team. Qualifiers: Nicotine product type: cigarettes Qualified Code(s): F17.219 - Nicotine dependence, cigarettes, with unspecified nicotine-induced disorders (6) Hyponatremia Current Visit: Yes Status: Acute mild and asymptomatic. Free water restriction. (7) Metabolic acidosis Current Visit: Yes Status: Acute see ckd. History of Present Illness - Reason for Consult Consult date: 07/15/16 Chronic Kidney Disease, hyperkalemia - Chief Complaint Hyperkalemia - History of Present Illness Mr. Stone is a 51 yo man with Stage [address] Lopez who presents with hyperkalemia found on lab tests. He reports he has no complaints , and has not been in to see Dr. Lopez since 2014. I called him last night to have his potassium of 7.5 reevaluated in the ER and it was 8.0 and he was admitted. This morning he reports no complaints. His potassium is down to 6.6. Past Med Surg Social Fam HX - Past Medical History Medical history: arthritis, cardiomyopathy, CHF, COPD, coronary artery disease, CVA, diabetes, GERD, glaucoma, hyperlipidemia, hypertension, myocardial infarction, osteoporosis, peripheral artery disease, renal disease, TIA, other Psychiatric history: anxiety, depression - Past Surgical History Surgical History: angioplasty/stent, appendectomy, cataract, herniorrhaphy, other (Tonsillectomy adenoidectomy) - Social History Smoking Status: Current every day smoker Packs per day: 1 Smokeless Tobacco Status: No Alcohol use: rarely Drug use: none Medications and Allergies Albuterol Sulfate [Proair Hfa] 2 puff IH Q4H PRN 07/15/16 [History] Aspirin 325 mg PO DAILY 07/15/16 [History] Atorvastatin Calcium [Lipitor] 80 mg PO HS 07/15/16 [History] Beclomethasone Diprop 40mcg [Qvar 40 mcg] 1 puff IH BID 07/15/16 [History] Carvedilol [Coreg] 6.25 mg PO BIDWM 07/15/16 [History] Cephalexin [Cephalexin] 500 mg PO BID 07/15/16 [History] Clopidogrel [Plavix] 75 mg PO DAILY 07/15/16 [History] Cyclobenzaprine HCl 30 mg PO DAILY 07/15/16 [History] Dorzolamide/Timolol [Cosopt] 1 drop BOTH EYES BID 07/15/16 [History] Escitalopram [Lexapro] 20 mg PO DAILY 07/15/16 [History] Gabapentin [Neurontin] 800 mg PO BID 07/15/16 [History] Glucagon,Human Recombinant [Glucagon Emergency Kit] 1 each IM DAILY PRN [History] Insulin ASPART [Novolog] 40 unit IJ DAILY PRN 07/15/16 [History] Nitroglycerin [Nitrostat] 0.4 mg SL Q5M PRN 07/15/16 [History] Pantoprazole Sodium [Protonix] 40 mg PO DAILY 07/15/16 [History] Sulfamethoxazole/Trimeth DS [Bactrim DS] 1 each PO BID 07/15/16 [History] Allergies codeine Allergy (Verified 07/06/16 21:35) Hives pregabalin [From Lyrica] Allergy (Verified 07/06/16 21:35) Hives Review of Systems All Systems: reviewed and no additional remarkable complaints except as stated Constitutional: no fatigue, no lethargy Cardiovascular: no chest pain, no dyspnea, no palpitations Respiratory: no dyspnea, no wheezing Gastrointestinal: no diarrhea, no nausea, no vomiting Musculoskeletal: no arthralgias Integumentary: no rash Neurological: no confusion, no frequent falls Psychiatric: no change in appetite, no confusion Endocrine: no cold intolerance Allergic/Immunologic: no itchy eyes Exam - Vital Signs Vital signs: Initial Vital Signs Temp Pulse Resp BP Pulse Ox 97.4 F L 100 16 130/73 96 07/14/16 23:00 07/14/16 23:00 07/14/16 23:00 07/14/16 23:00 07/14/16 23:00 Vital Signs - Last 8 Hours Temp Pulse Resp BP Pulse Ox 07/15/16 10:06 86 17 127/75 97 07/15/16 08:15 95 18 140/76 97 07/15/16 08:00 95 07/15/16 06:00 97.7 F 94 16 174/95 96 07/15/16 05:42 97.8 F 18 126/88 Intake and Output 07/14/16 07/15/16 07/15/16 23:59 07:59 15:59 Intake Total 0 / 110 0 / 0 Balance 0 / 110 0 / 0 Intake: Oral 0 / 0 0 / 0 Other: Stool Size Large Large Stool Consistency liquid liquid Stool Characteristics Normal for Patient Stool Color Brown Brown # Bowel Movements 1 Weight 64.3 kg Blood Glucose* 167 130 Patient Weight 07/15/16 23:59 Weight 64.3 kg - General Appearance General appearance: well-developed, well-nourished EENT: ATNC Neck: supple Respiratory: clear Cardiology: no edema, regular rate, regular rhythm Gastrointestinal: normoactive bowel sounds Integumentary: warm and dry Neurologic: alert and oriented x3 Musculoskeletal: no cyanosis Psychiatric: mood/affect appropriate Results - Lab Results 07/15/16 01:18 07/15/16 05:43 Most recent lab results Calcium 9.9 mg/dL (8.6-10.8) 07/15/16 05:43 Phosphorus 5.1 mg/dL (2.3-4.7) H 07/15/16 05:43 Magnesium 1.9 mg/dL (1.6-2.6) 07/15/16 05:43 Consult Discharge Plan - Plan Referrals: Steffen Cobb DO [Primary Care Provider] -
[2016-07-15] MEDS ORDERED: Insulin LISPRO 300 UNITS/3 ML VIAL SQ SCH ×2 (11:30→12:00)
[2016-07-15] MEDS: Nicotine 21 MG PATCH.TD24 TD SCH (11:55)
[2016-07-15] MEDS: Aspirin 325 MG TABLET PO SCH (11:56)
[2016-07-15] MEDS ORDERED: Furosemide 40 MG TABLET PO SCH ×2 (12:15→16:16)
--- NOTE | 2016-07-15 14:50 | Electrocardiograph Report ---
[facility] Test Date: 2016-07-14 Pat Name: Cali Stone Department: 105 Room: 02 Gender: M Associate Theatre Professor: LEON : 1965 Requested By: Qian Brenner Order Number: [id number] Reading MD: Lila Osborn Measurements Intervals [place] Rate: 95 P: 58 KS: 155 QRS: 16 QRSD: 107 T: 63 QT: 320 QTc: 373 Interpretive Statements SINUS RHYTHM Electronically Signed On 07-15-16 14:48:58 EST by Lila Osborn
--- NOTE | 2016-07-15 14:51 | Electrocardiograph Report ---
[facility] Test Date: 2016-07-15 Pat Name: Cali Stone Department: 109 Room: 02 Gender: M Tipple Greaser: [facility] : 1965 Requested By: Gm Welsh Order Number: [id number] Reading MD: Lila Osborn Measurements Intervals [place] Rate: 84 P: 61 AK: 152 QRS: 61 QRSD: 105 T: 61 QT: 343 QTc: 384 Interpretive Statements SINUS RHYTHM Electronically Signed On 07-15-16 14:50:30 EST by Lila Osborn
--- NOTE | 2016-07-15 18:55 | Internal Med Progress Note ---
Date of Encounter: 07/15/16 Time of Encounter: 09:00 - Assessment and plan (1) Acute kidney injury superimposed on CKD Current Visit: Yes Status: Acute Assessment and plan: Consult nephrology. (2) Hyperkalemia Current Visit: Yes Status: Acute Assessment and plan: Low potassium food. Follow-up potassium level in the morning. (3) Metabolic acidosis Current Visit: Yes Status: Acute Assessment and plan: IV bicarbonate drip. (4) Uncontrolled diabetes mellitus Current Visit: Yes Status: Acute Assessment and plan: Continue insulin pump. Add insulin Levemir. Check hemoglobin A1c. Accu-Cheks 4 times a day.. Qualifiers: Diabetes mellitus type: type 1 Diabetes mellitus complication status: with kidney complications Diabetes mellitus complication detail: with other kidney complication Qualified Code(s): E10.29 - Type 1 diabetes mellitus with other diabetic kidney complication; E10.65 - Type 1 diabetes mellitus with hyperglycemia (5) Nicotine dependence with nicotine-induced disorder Current Visit: Yes Status: Chronic Assessment and plan: Negative patch. I have provided smoking cessation counseling. Qualifiers: Nicotine product type: cigarettes Qualified Code(s): F17.219 - Nicotine dependence, cigarettes, with unspecified nicotine-induced disorders - Subjective Interval history: The patient was admitted this morning with HG A1c KD and hyperkalemia, he was noted to be noncompliant. He was sent from his senior editor for elevated potassium level. He was and continues to be asymptomatic. - Constitutional Vitals: Temp Pulse Resp BP Pulse Ox 97.5 F L 91 18 146/95 100 07/15/16 15:10 07/15/16 17:00 07/15/16 17:00 07/15/16 17:00 07/15/16 17:00 - Respiratory Respiratory exam: Present: CTAB. Absent: accessory muscle use, rales, rhonchi, wheezes - Cardiovascular Cardiovascular exam: Present: RRR, +S1, +S2. Absent: diastolic murmur, gallop, rubs, systolic murmur - GI/Abdominal GI/Abdominal exam: Present: normal bowel sounds, soft, no peritoneal signs. Absent: distended, tenderness - Extremities Exam Extremities exam: Present: warm, radial pulses palpable and symetrical. Absent : calf tenderness, cyanotic, pedal edema Internal Medicine: Result - Labs CBC & Chem 7: 07/15/16 01:18 07/15/16 12:08 Labs: BMP 07/15/16 07/15/16 05:43 12:08 Sodium 132 L Potassium 6.6 H* D 6.7 H* Chloride 107 Carbon Dioxide 17 L BUN 36 H Creatinine 2.19 H Glucose 195 H Calcium 9.9 Cardiac Enzymes 07/15/16 Range/Units 05:43 Troponin I 0.00 (0-0.03) ng/mL - ABG Interpretation ABG results: PT/INR, D-dimer PT 10.5 Seconds (9.4-12.1) 07/15/16 01:18 Consult Discharge Plan - Plan Referrals: Steffen Cobb DO [Primary Care Provider] -
[2016-07-15] MEDS: Dorzolamide/Timolol OPTH 10 ML BOTTLE BOTH EYES SCH (20:15)
[2016-07-15] MEDS: cephALEXin 500 MG CAPSULE PO SCH (20:16)
[2016-07-15] MEDS: Gabapentin 300 MG CAPSULE PO SCH (20:16)
[2016-07-15] MEDS ORDERED: Insulin DETEMIR 100 UNIT/ML X5UNITS SQ SCH (21:00)
[2016-07-15] MEDS: Beclomethasone 40mcg MDI IH SCH (21:39)
[2016-07-16 03:46] LABS: Calcium 8.4 mg/dL (8.6-10.8); Potassium 4.3 mEq/L (3.5-4.5)
[2016-07-16 06:09] VITALS: BP 136/83
[2016-07-16] MEDS: Gabapentin 300 MG CAPSULE PO SCH (07:51)
[2016-07-16] MEDS: Sodium Bicarbonate 75 MEQ in 0.45 % Sodium Chloride 1,000 ML IVC SCH (07:51)
[2016-07-16] MEDS: cephALEXin 500 MG CAPSULE PO SCH (07:52)
[2016-07-16] MEDS: Nicotine 21 MG PATCH.TD24 TD SCH (07:52)
[2016-07-16] MEDS: Aspirin 325 MG TABLET PO SCH (07:52)
[2016-07-16] MEDS: *HR* Heparin 5,000 UNIT/ML VIAL SQ SCH (07:53)
[2016-07-16] MEDS: Pantoprazole 40 MG VIAL IVP SCH (07:53)
[2016-07-16] MEDS: Beclomethasone 40mcg MDI IH SCH (08:03)
[2016-07-16] MEDS: Dorzolamide/Timolol OPTH 10 ML BOTTLE BOTH EYES SCH (08:28)
--- NOTE | 2016-07-16 13:41 | Discharge Summary ---
<Carlos Skinner - Last Filed: 07/16/16 13:43> Date of Encounter: 07/16/16 Time of Encounter: 09:00 - Discharge Medications Home Medications: Albuterol Sulfate [Proair Hfa] 2 puff IH Q4H PRN 07/15/16 [History] Aspirin 325 mg PO DAILY 07/15/16 [History] Atorvastatin Calcium [Lipitor] 80 mg PO HS 07/15/16 [History] Beclomethasone Diprop 40mcg [QVAR 40 mcg] 1 puff IH BID 07/15/16 [History] Carvedilol [Coreg] 6.25 mg PO BIDWM 07/15/16 [History] Cephalexin 500 mg PO BID 07/15/16 [History] Clopidogrel [Plavix] 75 mg PO DAILY 07/15/16 [History] Cyclobenzaprine HCl 30 mg PO DAILY 07/15/16 [History] Dorzolamide/Timolol [Cosopt] 1 drop BOTH EYES BID 07/15/16 [History] Escitalopram [Lexapro] 20 mg PO DAILY 07/15/16 [History] Gabapentin [Neurontin] 800 mg PO BID 07/15/16 [History] Glucagon,Human Recombinant [Glucagon Emergency Kit] 1 each IM DAILY PRN [History] Insulin ASPART [Novolog] 40 unit IJ DAILY PRN 07/15/16 [History] Nitroglycerin [Nitrostat] 0.4 mg SL Q5M PRN 07/15/16 [History] Pantoprazole Sodium [Protonix] 40 mg PO DAILY 07/15/16 [History] Sulfamethoxazole/Trimeth DS [Bactrim Ds] 1 each PO BID 07/15/16 [History] Allergies/Adverse Reactions: Allergies codeine Allergy (Verified 07/06/16 21:35) Hives pregabalin [From Lyrica] Allergy (Verified 07/06/16 21:35) Hives Date of admission: 07/15/16 05:23 Primary care physician: Steffen Cobb Consults: 07/15/16 11:34 consult to electric container tester [Consult to Nutrition] [CONS] Routine Comment: patient with CKD3, hyperkalemia and diabetes Consulting Provider: NUTRITION Reason for Dietary Consult: Diet Education Other:: Needs dietary education on low potssium diet. Discharging clinician: Luiz Siddiqui Anticipated date of discharge: 07/16/16 - Patient Status Disposition: Left Against Medical Advice Condition: Fair - Discharge Instructions Follow Up With: Steffen Cobb DO [Primary Care Provider] - Hospital course: The patient is admitted to [facility] via the emergency department when he presents in the company of family with concerns regarding recent abnormal laboratory tests. Recent blood work was obtained by patient's event specialist food demonstrator to assess his current status. He was informed to present to the emergency department due to very high potassium measurement noted reportedly at 7.5. Patient was asymptomatic at the time of presentation denying any feelings of pain or weakness nausea vomiting lethargy and malaise. The patient had been initiated on oral antibiotic on July 06 to treat a cellulitis of his left hand which included cephalexin and Bactrim DS twice daily for 10 days for presumed MRSA infection. Denied any other new developments or indiscretions. Findings in the ED: Temperature 97.4 pulse 80-100 respirations 16-22 BP 120-130/73-92 saturation 96% at room air. WBC 10.2 hemoglobin 13.3 platelets 339,000. Differential normal. PT 10.5 INR 1 PTT 34.2. Metabolic panel findings sodium 128 potassium 8.0. Carbon dioxide 14. BUN 37 creatinine 2.41 GFR 28. Glucose 411 osmolality 292. Hepatic function normal. Troponin 0.00 BNP 10. Urinalysis large glucose. EKG normal sinus rhythm. No acute ischemic changes. Peaked T waves noted. Chest x-ray reveals no acute or active cardiopulmonary process. Preliminary impression suggests acute on chronic, stage IV renal failure with associated severe metabolic acidosis and severe hyperkalemia. Presentation is complicated by poorly controlled diabetes mellitus with presentation of marked hyperglycemia and glycosuria. Significant metabolic and acid-base derangements are apparent. Systemic inflammatory response criteria met. Allergy for rapid decline in renal function may have been concomitant use of recent antibiotic therapy specifically Bactrim DS in the setting of relative dehydration and potential adverse drug drug interaction with other concomitant medications taken at the time. Further investigation will be pursued. She presents with a risk for acute clinical decline and morbidity given his presenting chief complaint, clinical findings and comorbidities. History is further complicated by reports of inconsistent follow-through with medical treatment recommendations and therapies. Patient left AMA prior to being discharged. His final diagnosis of hyperkalmia was treated successfully. His TORRIE on CKD was treated successfully. Nephrology was consulted: Mild TORRIE on CKD Stage 3b. I think he is now at a new baseline around 2.1. He has some progression of his CKD secondary to uncontrolled DM1. Looking at his outpatient records he seems nonadherant to medical recommendations. Continue with supplemental IV fluids. Adjust medications for renal dysfunction. Avoid nephrotoxins. He will need to follow with Dr. John PETERSON after discharge. Check BMP weekly x 3 to follow his potassium level. He should be discharged with a supply of kayexalate to use if his potassium is greatly elevated as an outpatient. For hyperkalemia - medical management. He can be discharged on a loop diuretic and instructed to avoid high potassium foods. He will need to monitor his BP and renal function on the diuretic. I will consult nutrition to assist with diet education. For acidosis - agree with intravenous bicarbonate. He should be discharged on oral bicarbonate. Of note the patient is stating that he does not want dialysis under any circumstances. Fortunately he does not need TUB MENDER at this time, but this may need to be an ongoing education. Ok for discharge from renal standpoint once his potassium is at a normal level. Have potassium checked 2-3 days after discharge. His hyperkalemia was treated medically. His K+ on d/c was wnl. Creatinine of 1.8, appears to be new baseline. He was instructed to eat low potassium foods and remain well hydrated. He nodded in agreement. Vital signs were WNL when patient left AMA. Chest X-Ray 07/15/16 01:04 IMPRESSION: Negative portable chest. D/ / Meng Melgoza MD / Meng Melgoza MD Interpreting Provider: Meng Melgoza MD Patient left AMA prior to being discharged. - Time Spent with Patient Total time spent providing and/or coordinating discharge services: - Constitutional Vitals: Temp Pulse Resp BP Pulse Ox 97.5 F L 96 16 136/83 97 07/16/16 07:35 07/16/16 08:00 07/16/16 08:03 07/16/16 08:00 07/16/16 08:03 General appearance: Present: cooperative, disheveled, mild distress, A&O X 3, answers questions appropriately - Head Head exam: Present: atraumatic, normocephalic - Eye Eye exam: Present: PERRL, conjuntiva pink, sclera anicteric Pupils: Present: PERRL - Neck Neck exam general surgery: Present: supple, trachea midline. Absent: lymphadenopathy - Respiratory Respiratory exam: Present: wheezes - Cardiovascular Cardiovascular exam: Present: RRR, +S1, +S2 - GI/Abdominal GI/Abdominal exam: Present: normal bowel sounds, soft, no peritoneal signs. Absent: distended, tenderness - Extremities Exam Extremities exam: Present: warm, radial pulses palpable and symetrical. Absent : calf tenderness, cyanotic, pedal edema - Neurological Exam Neurological exam: Present: CN II-XII intact, oriented X3, no focal deficits. Absent: pronater drift, facial droop, speech deficit <Luiz Siddiqui - Last Filed: 07/16/16 17:53> Date of Encounter: 07/16/16 - Discharge Diagnosis (1) Acute kidney injury superimposed on CKD Priority: Secondary Status: Acute (2) Hyperkalemia Priority: Primary Status: Acute (3) Metabolic acidosis Priority: Secondary Status: Acute (4) Uncontrolled diabetes mellitus Priority: Secondary Status: Acute Qualifiers: Diabetes mellitus type: type 1 Diabetes mellitus complication status: with kidney complications Diabetes mellitus complication detail: with other kidney complication Qualified Code(s): E10.29 - Type 1 diabetes mellitus with other diabetic kidney complication; E10.65 - Type 1 diabetes mellitus with hyperglycemia (5) Nicotine dependence with nicotine-induced disorder Priority: Secondary Status: Chronic Qualifiers: Nicotine product type: cigarettes Qualified Code(s): F17.219 - Nicotine dependence, cigarettes, with unspecified nicotine-induced disorders Date of admission: 07/15/16 05:23 Primary care physician: Steffen Cobb Consults: 07/15/16 11:34 consult to electric container tester [Consult to Nutrition] [CONS] Routine Comment: patient with CKD3, hyperkalemia and diabetes Consulting Provider: NUTRITION Reason for Dietary Consult: Diet Education Other:: Needs dietary education on low potssium diet. Hospital course: Mr. Stone is a 51 year old male - Time Spent with Patient Total time spent providing and/or coordinating discharge services: - Constitutional Vitals: Temp Pulse Resp BP Pulse Ox 97.5 F L 96 16 136/83 97 07/16/16 07:35 07/16/16 08:00 07/16/16 08:03 07/16/16 08:00 07/16/16 08:03 - Attending Attestation I examined this patient and my medical decision-making was reviewed with the Resident Physician. I agree with the documented findings, disposition and treatment plan as described except to the extent set forth below. I have discussed smoking cessation with the patient today. We have not been able to provide him with any updated medication information since the patient left AGAINST MEDICAL ADVICE prior to being discharge. I instructed him to avoid high potassium diet, to follow-up closely with his primary care physician and monitor his blood glucose carefully.
== END 2016-07-16 09:08 | disposition left against medical advice (07) | DRG 683 ==
LOC: EMEROO 22:58 → ICNU 07-15 05:23
PROVIDERS: ADMIT Family Medicine; ATTEND Internal Medicine

== ENCOUNTER 2017-04-07 19:48 | Observation (INO) ==
[2017-04-07] MEDS ORDERED: 0.9 % Sodium Chloride 500 ML IVC ONE ×2 (20:10→21:35)
[2017-04-07 20:24] LABS: Basophils % 0.3 %; Eosinophils # 0.3 K/mcL (0.0-0.6); Eosinophils % 2.3 %; Hematocrit 38.2 % (37.5-50.1); Hemoglobin 12.7 g/dL (12.9-16.9); Immature Granulocytes % 0.5 % (0-4); Lymphocytes # 2.1 K/mcL (0.6-4.6); Lymphocytes % 16.4 %; Mean Corpuscular HGB Conc 33.2 g/dL (31.6-35.5); Mean Corpuscular Hemoglobin 29.6 pg (28.0-33.3); Mean Platelet Volume 10.3 fL (9.4-12.4); Monocytes % 7.9 %; Neutrophils # 9.3 K/mcL (1.6-8.9); Platelet Count 263 K/mcL (140-400); Red Blood Count 4.29 M/mcL (4.19-5.50); Red Cell Distribution Width 13.6 % (11.5-14.5); Segmented Neutrophils % 72.6 %
[2017-04-07 20:34] LABS: Alanine Aminotransferase 10 Units/L (0-55); Albumin 3.8 g/dL (3.5-5.0); Albumin/Globulin Ratio 0.9 (1.1-2.2); Alkaline Phosphatase 113 Units/L (38-126); Aspartate Amino Transferase 17 Units/L (5-34); BUN/Creatinine Ratio 18 (6-26); Bilirubin,Direct 0.2 mg/dL (0.0-0.5); Bilirubin,Indirect 0.7 mg/dL (0.0-1.2); Bilirubin,Total 0.9 mg/dL (0.2-1.2); Blood Urea Nitrogen 30 mg/dL (8-26); Calcium 9.8 mg/dL (8.6-10.8); Carbon Dioxide 14 mEq/L (19-29); Chloride 101 mEq/L (98-109); Globulin 4.1 g/dL (2.4-3.5); Glucose 269 mg/dL (70-99); Osmolality,Calculated 286 (280-300); Potassium 6.1 mEq/L (3.5-4.5); Sodium 130 mEq/L (136-145); Total Protein 7.9 g/dL (6.0-8.3); eGFR For African Americans 52 (> 60); eGFR For Non-African Americans 43 (> 60)
[2017-04-07 20:39] LABS: Lipase < 10 Units/L (8-78)
--- NOTE | 2017-04-07 20:41 | Emergency Department Note ---
Disposition Clinical Impression: Hyperkalemia DKA (diabetic ketoacidoses) Qualifiers: Diabetes mellitus type: type 1 Diabetes mellitus complication detail: without coma Qualified Code(s): E10.10 - Type 1 diabetes mellitus with ketoacidosis without coma Disposition: Admitted As Inpatient Condition: Fair Time of Disposition: 22:00 Abdominal Pain HPI - General Chief Complaint: ED Abdominal Pain Stated Complaint: Stomach cramps Time Seen by Provider: 04/07/17 19:53 Source: patient, EMS Mode of arrival: ambulatory Limitations: no limitations Nursing Notes Reviewed: Yes Vital Signs Reviewed: Yes - History of Present Illness HPI Narrative: Patient is a 52-year-old male who presents to [facility] ED with a chief complaint of lower abdominal cramping. States his symptoms started 2 days ago. He has not had anything to eat because he states he just does not feel like it. Denies any nausea or vomiting. No fever or chills. He is a type I diabetic with an insulin pump. Patient has had normal bowel movements and normal urination. Denies any chest pain or difficulty breathing. No shortness of breath. States he has generalized pain everywhere. Pt Subjective Complaint: abdominal pain Onset (ago): day(s) Consistency: constant Location: LLQ, RLQ, suprapubic Pain Severity: severe Pain Scale: 10 Quality: cramping Radiation: none Migration to: no migration Improves with: nothing Worsens with: nothing Associated symptoms: Denies: nausea, vomiting, diarrhea, fever, chills, constipation, dysuria Treatments prior to arrival: none - Related Data Home Medications Medication Instructions Recorded Confirmed Albuterol Sulfate [Proair Hfa] 2 puff IH Q4H PRN 07/15/16 04/07/17 Aspirin 325 mg PO DAILY 07/15/16 04/07/17 Atorvastatin Calcium [Lipitor] 80 mg PO HS 07/15/16 04/07/17 Beclomethasone Diprop 40mcg [QVAR 1 puff IH BID 07/15/16 04/07/17 40 mcg] Carvedilol [Coreg] 6.25 mg PO BIDWM 07/15/16 04/07/17 Clopidogrel [Plavix] 75 mg PO DAILY 07/15/16 04/07/17 Cyclobenzaprine HCl 30 mg PO HS 07/15/16 04/07/17 Dorzolamide/Timolol [Cosopt] 1 drop BOTH EYES BID 07/15/16 04/07/17 Escitalopram [Lexapro] 20 mg PO DAILY 07/15/16 04/07/17 Gabapentin [Neurontin] 800 mg PO TID 07/15/16 04/07/17 Glucagon,Human Recombinant 1 each IJ ONCE PRN 07/15/16 04/07/17 [Glucagon Emergency Kit] Nitroglycerin [Nitrostat] 0.4 mg SL Q5M PRN 07/15/16 04/07/17 Pantoprazole Sodium [Protonix] 40 mg PO DAILY 07/15/16 04/07/17 Subcutaneous Insulin Pump [T:Slim] 1 each MC AD 04/07/17 04/07/17 Allergies Allergy/AdvReac Type Severity Reaction Status Date / Time codeine Allergy Hives Verified 07/06/16 21:35 pregabalin [From Lyrica] Allergy Hives Verified 07/06/16 21:35 All systems ED: reviewed and negative except as stated. Abdominal Pain PMH - Past Medical History Medical history: Reports: non-contributory, arthritis, cardiomyopathy, CHF, COPD , coronary artery disease, CVA, diabetes, GERD, glaucoma, hyperlipidemia, hypertension, myocardial infarction, osteoporosis, peripheral artery disease, renal disease, TIA, other Male Surgical History: Reports: angioplasty/stent, appendectomy, herniorrhaphy, other Psychiatric history: Reports: anxiety, depression - Social History Smoking status: Current every day smoker Alcohol use: Reports: none Drug use: Reports: none Physical Exam - General Limitations: no limitations General appearance: alert, in no apparent distress - Head Head exam: atraumatic, normocephalic, normal inspection - Eye Eye exam: Present: normal appearance, EOMI - ENT ENT exam: normal exam, normal oropharynx, mucous membranes moist - Neck Neck exam: Present: normal inspection, full ROM, trachea midline - Chest Chest inspection: Present: normal inspection, symmetric chest wall rise - Respiratory Respiratory exam: Present: normal lung sounds bilaterally - Cardiovascular Cardiovascular exam: Present: normal rhythm, tachycardia, normal heart sounds - Abdominal Exam Abdominal exam: Present: soft, tenderness, normal bowel sounds. Absent: distention, guarding, rebound, rigidity Abdominal tenderness: Present: RLQ, LLQ, suprapubic, diffuse, moderate - Extremities Exam Extremities exam: Present: normal inspection, full ROM. Absent: tenderness, pedal edema - Back Exam Back exam: Present: normal inspection, full ROM. Absent: tenderness - Neurological Exam Neurological exam: Present: alert - Psychiatric Psychiatric exam: Present: normal affect, normal mood - Skin Skin exam: Present: warm, dry, intact, normal color Course Course Narrative: Patient seen and examined. Generalized lower abdominal pain along with decreased appetite for the last 2 days. He has not been drinking any fluids. Abdominal lab work ordered as well as VBG and Betahydroxybutyrate acid. Since patient has history of congestive heart failure, will start out with 500 mL bolus of IV fluids. His blood glucose levels per EMS were in the 200s. - Reevaluation(s) Reevaluation #1: Patient's lab work shows elevated beta hydroxybutyrate acid >2 as well as bicarbonate of 14. His VBG does not show extreme acidosis. PH is 7.34. Anion gap 15. Patient's glucose was elevated in the 200s. With his potassium levels high at 6.1, we did give him 10 units of insulin. We will continue to do blood sugars. Bicarb, and duoneb ordered as well. No EKG changes to suggest need for Ca gluconate. I do not feel it is necessary to place him on an insulin drip at this time, though concern for early DKA and hyperkalemia. I discussed with hospitalist Dr. Garay who has accepted pt for admission. Time: 22:00 Vital Signs Temperature 98.3 F 04/07/17 19:50 Pulse Rate 115 04/07/17 19:50 Respiratory Rate 20 04/07/17 19:50 Blood Pressure 113/83 04/07/17 19:50 O2 Sat by Pulse Oximetry 94 04/07/17 19:50 Temperature 97.5 F L 04/08/17 03:51 Pulse Rate 85 04/08/17 03:51 Respiratory Rate 16 04/08/17 03:51 Blood Pressure 110/71 04/08/17 03:51 O2 Sat by Pulse Oximetry 91 04/08/17 03:51 Oxygen Delivery Oxygen Delivery Room Air Abdominal Pain - Medical Records Medical records reviewed: Yes I reviewed the patient's medical records. - Lab Data Lab results reviewed: Yes I reviewed the patient's lab results. Result diagrams: 04/07/17 20:00 04/07/17 22:32 Lab Results 04/07/17 04/07/17 04/07/17 Range/Units 20:00 20:00 21:18 WBC 12.8 H (4.3-11.1) K/mcL RBC 4.29 (4.19-5.50) M/mcL Hgb 12.7 L (12.9-16.9) g/dL Hct 38.2 (37.5-50.1) % MCV 89.0 (83.0-100.0) fL MCH 29.6 (28.0-33.3) pg MCHC 33.2 (31.6-35.5) g/dL RDW 13.6 (11.5-14.5) % Plt Count 263 (140-400) K/mcL MPV 10.3 (9.4-12.4) fL Immature Gran % 0.5 (0-4) % Seg Neutrophils % 72.6 % Lymphocytes % 16.4 % Monocytes % 7.9 % Eosinophils % 2.3 % Basophils % 0.3 % Neutrophils # 9.3 H (1.6-8.9) K/mcL Lymphocytes # 2.1 (0.6-4.6) K/mcL Monocytes # 1.0 (0.0-1.3) K/mcL Eosinophils # 0.3 (0.0-0.6) K/mcL Basophils # 0.0 (0.0-0.2) K/mcL VBG pH (7.32-7.42) pH Units VBG pCO2 (41-51) mmHg VBG pO2 (25-50) mmHg VBG HCO3 (21-27) mEq/L Sodium 130 L (136-145) mEq/L Potassium 6.1 H (3.5-4.5) mEq/L Chloride 101 (98-109) mEq/L Carbon Dioxide 14 L (19-29) mEq/L BUN 30 H (8-26) mg/dL Creatinine 1.67 H (0.72-1.25) mg/dL Est GFR ( Amer) 52 L (> 60) Est GFR (Non-Af Amer) 43 L (> 60) BUN/Creatinine Ratio 18 (6-26) Glucose 269 H (70-99) mg/dL POC Glucose (58-89) Calculated Osmolality 286 (280-300) Lactic Acid 1.7 (0.5-2.2) mmol/L Calcium 9.8 (8.6-10.8) mg/dL Total Bilirubin 0.9 (0.2-1.2) mg/dL Direct Bilirubin 0.2 (0.0-0.5) mg/dL Indirect Bilirubin 0.7 (0.0-1.2) mg/dL AST 17 (5-34) Units/L ALT 10 (0-55) Units/L Alkaline Phosphatase 113 (38-126) Units/L Troponin I (0-0.03) ng/mL Serum Total Protein 7.9 (6.0-8.3) g/dL Albumin 3.8 (3.5-5.0) g/dL Globulin 4.1 H (2.4-3.5) g/dL Albumin/Globulin Ratio 0.9 L (1.1-2.2) Lipase < 10 (8-78) Units/L Beta-Hydroxybutyric Acd (0.02-0.27) mmol/L 04/07/17 04/07/17 04/07/17 Range/Units 21:18 21:18 21:30 WBC (4.3-11.1) K/mcL RBC (4.19-5.50) M/mcL Hgb (12.9-16.9) g/dL Hct (37.5-50.1) % MCV (83.0-100.0) fL MCH (28.0-33.3) pg MCHC (31.6-35.5) g/dL RDW (11.5-14.5) % Plt Count (140-400) K/mcL MPV (9.4-12.4) fL Immature Gran % (0-4) % Seg Neutrophils % % Lymphocytes % % Monocytes % % Eosinophils % % Basophils % % Neutrophils # (1.6-8.9) K/mcL Lymphocytes # (0.6-4.6) K/mcL Monocytes # (0.0-1.3) K/mcL Eosinophils # (0.0-0.6) K/mcL Basophils # (0.0-0.2) K/mcL VBG pH 7.34 (7.32-7.42) pH Units VBG pCO2 42 (41-51) mmHg VBG pO2 57 H (25-50) mmHg VBG HCO3 23 (21-27) mEq/L Sodium (136-145) mEq/L Potassium (3.5-4.5) mEq/L Chloride (98-109) mEq/L Carbon Dioxide (19-29) mEq/L BUN (8-26) mg/dL Creatinine (0.72-1.25) mg/dL Est GFR ( Amer) (> 60) Est GFR (Non-Af Amer) (> 60) BUN/Creatinine Ratio (6-26) Glucose (70-99) mg/dL POC Glucose (58-89) Calculated Osmolality (280-300) Lactic Acid (0.5-2.2) mmol/L Calcium (8.6-10.8) mg/dL Total Bilirubin (0.2-1.2) mg/dL Direct Bilirubin (0.0-0.5) mg/dL Indirect Bilirubin (0.0-1.2) mg/dL AST (5-34) Units/L ALT (0-55) Units/L Alkaline Phosphatase (38-126) Units/L Troponin I 0.00 (0-0.03) ng/mL Serum Total Protein (6.0-8.3) g/dL Albumin (3.5-5.0) g/dL Globulin (2.4-3.5) g/dL Albumin/Globulin Ratio (1.1-2.2) Lipase (8-78) Units/L Beta-Hydroxybutyric Acd > 2.00 H (0.02-0.27) mmol/L 04/07/17 Range/Units 21:37 WBC (4.3-11.1) K/mcL RBC (4.19-5.50) M/mcL Hgb (12.9-16.9) g/dL Hct (37.5-50.1) % MCV (83.0-100.0) fL MCH (28.0-33.3) pg MCHC (31.6-35.5) g/dL RDW (11.5-14.5) % Plt Count (140-400) K/mcL MPV (9.4-12.4) fL Immature Gran % (0-4) % Seg Neutrophils % % Lymphocytes % % Monocytes % % Eosinophils % % Basophils % % Neutrophils # (1.6-8.9) K/mcL Lymphocytes # (0.6-4.6) K/mcL Monocytes # (0.0-1.3) K/mcL Eosinophils # (0.0-0.6) K/mcL Basophils # (0.0-0.2) K/mcL VBG pH (7.32-7.42) pH Units VBG pCO2 (41-51) mmHg VBG pO2 (25-50) mmHg VBG HCO3 (21-27) mEq/L Sodium (136-145) mEq/L Potassium (3.5-4.5) mEq/L Chloride (98-109) mEq/L Carbon Dioxide (19-29) mEq/L BUN (8-26) mg/dL Creatinine (0.72-1.25) mg/dL Est GFR ( Amer) (> 60) Est GFR (Non-Af Amer) (> 60) BUN/Creatinine Ratio (6-26) Glucose (70-99) mg/dL POC Glucose 250 H (58-89) Calculated Osmolality (280-300) Lactic Acid (0.5-2.2) mmol/L Calcium (8.6-10.8) mg/dL Total Bilirubin (0.2-1.2) mg/dL Direct Bilirubin (0.0-0.5) mg/dL Indirect Bilirubin (0.0-1.2) mg/dL AST (5-34) Units/L ALT (0-55) Units/L Alkaline Phosphatase (38-126) Units/L Troponin I (0-0.03) ng/mL Serum Total Protein (6.0-8.3) g/dL Albumin (3.5-5.0) g/dL Globulin (2.4-3.5) g/dL Albumin/Globulin Ratio (1.1-2.2) Lipase (8-78) Units/L Beta-Hydroxybutyric Acd (0.02-0.27) mmol/L - EKG Data EKG attestation: Yes I reviewed and interpreted this EKG. EKG results narrative: EKG done at 2055 shows sinus tachycardia with a rate of 107 beats per minute. No acute ST elevation or depression. Normal axis. EKG appears unchanged from prior one done 03/25/2017.
[2017-04-07] MEDS ORDERED: Insulin Human Regular 5 UNIT, Sodium Bicarbonate 50 MEQ in D10% in Water 500 ML IVC ONE (20:45)
[2017-04-07] MEDS ORDERED: Ipratropium/Albuterol Neb 3 ML IH ONE (20:45)
[2017-04-07] MEDS ORDERED: Sodium Bicarbonate 50 MEQ/50 ML VIAL IVP ONE (20:50)
[2017-04-07] MEDS ORDERED: Insulin Human Regular 5 UNIT in 0.9 % Sodium Chloride 10 ML IV ONE (20:50)
--- NOTE | 2017-04-07 20:55 | Emergency Department Note ---
START Narrative - START START: I examined this patient and my medical decision-making was reviewed with the Resident Physician. I agree with the documented findings, disposition and treatment plan as described except to the extent set forth below. 52 yolis old male with HX of diabetes presents to the ED with complaints of nausea and stomach cramps and decreased appetite. Patient states that he has been feeling this way over the past few days and that it hasnt been getting better. His Blood glucose has been rangining 80-180s at home, here today he is > 200. Samuel states that he has an insulin pump that helps manage his diabetes. Samuel denies fvers, vomitting but has epigastric cramps. WE will do DKA rule out study. It appears he also has a potassium of 6.1, we will start hyperkalemia treatment now and admit to medicine.
[2017-04-07 21:33] LABS: VBG HCO3 23 mEq/L (21-27); VBG PCO2 42 mmHg (41-51); VBG PH 7.34 pH Units (7.32-7.42); VBG PO2 57 mmHg (25-50)
[2017-04-07 23:04] LABS: Calcium 8.9 mg/dL (8.6-10.8); Magnesium 1.2 mg/dL (1.6-2.6)
[2017-04-07 23:05] LABS: Potassium 4.7 mEq/L (3.5-4.5)
[2017-04-08] MEDS ORDERED: Acetaminophen 325 MG TABLET PO PRN (02:53)
[2017-04-08] MEDS ORDERED: Naloxone 0.4 MG/ML INJ IVP PRN (02:53)
[2017-04-08] MEDS ORDERED: Ondansetron 4 MG/2 ML VIAL IVP PRN (02:53)
--- NOTE | 2017-04-08 02:54 | Internal Med History&Physical ---
<Demetrio Calderon - Last Filed: 04/08/17 04:16> Date of Encounter: 04/08/17 Time of Encounter: 02:51 Assessment and Plan (1) Hyperkalemia Current visit: Yes Status: Acute K 6.1 --> 4.7 after insulin and IVF EKG unremarkable Continue to monitor (2) Hypomagnesemia Current visit: Yes Status: Acute Mag 1.2 Supplement mag Continue to monitor (3) Abdominal pain Current visit: Yes Status: Resolved Resolved with IVF, continue to monitor Qualifiers: Abdominal location: generalized Qualified Code(s): R10.84 - Generalized abdominal pain (4) Uncontrolled diabetes mellitus Current visit: No Status: Acute HGB a1c 10.6 on 01/28/17 Continue insulin regimen, accuchecks, diabetic diet Qualifiers: Diabetes mellitus type: type 1 Diabetes mellitus complication status: with kidney complications Diabetes mellitus complication detail: with other kidney complication Qualified Code(s): E10.29 - Type 1 diabetes mellitus with other diabetic kidney complication; E10.65 - Type 1 diabetes mellitus with hyperglycemia; E10.65 - Type 1 diabetes mellitus with hyperglycemia; E10.65 - Type 1 diabetes mellitus with hyperglycemia; E10.65 - Type 1 diabetes mellitus with hyperglycemia (5) Leukocytosis Current visit: Yes Status: Acute Leukocytosis with left shift, uncertain etiology Repeat labs in AM Qualifiers: Leukocytosis type: unspecified Qualified Code(s): D72.829 - Elevated white blood cell count, unspecified (6) CKD stage 4 due to type 2 diabetes mellitus Current visit: Yes Status: Acute Continue IVF at 125cc/hr (7) COPD (chronic obstructive pulmonary disease) Current visit: Yes Status: Chronic Not in acute exacerbation Continue home meds Qualifiers: Emphysema type: unspecified Qualified Code(s): J43.9 - Emphysema, unspecified (8) CAD (coronary artery disease) Current visit: Yes Status: Chronic Continue home meds Qualifiers: Coronary Disease-Associated Artery/Lesion type: unspecified vessel or lesion type [place] vs. transplanted heart: [place] heart Associated angina: without angina Qualified Code(s): I25.10 - Atherosclerotic heart disease of [place] coronary artery without angina pectoris (9) HTN (hypertension) Current visit: Yes Status: Chronic Continue home meds Qualifiers: Hypertension type: unspecified Qualified Code(s): I10 - Essential (primary ) hypertension (10) HLD (hyperlipidemia) Current visit: Yes Status: Chronic Continue home meds Qualifiers: Hyperlipidemia type: unspecified Qualified Code(s): E78.5 - Hyperlipidemia , unspecified (11) DVT prophylaxis Current visit: Yes Status: Acute Heparin subq TID Internal Medicine - H&P: HPI Chief complaint: Abd pain Admitted From: Home Plans for Post Hospital Care: Home History of present illness: Mr. Stone is a 52 year old male with a PMH of GERD, poorly controlled DM Type 1 with an insulin pump presented c/o abd pain for the past 2 days. Patient reports decreased appetite, cramping/ aching sensation, and 10/10 pain severity. Nothing made abd pain worse and pain resolved spontaneously in the ED after IVF administration. Current pain level is 0/10 and patient is requesting diet. He denies fever, chills, CP, SOB, N/V/D/C, leg edema, or recent illness. Past Med Surg Social Fam HX - Past Medical History Medical history: non-contributory, arthritis, cardiomyopathy, CHF, COPD, coronary artery disease, CVA, diabetes, GERD, glaucoma, hyperlipidemia, hypertension, myocardial infarction, osteoporosis, peripheral artery disease, renal disease, TIA, other Psychiatric history: anxiety, depression - Past Surgical History Surgical History: angioplasty/stent, appendectomy, cataract, herniorrhaphy, other - Social History Smoking Status: Current every day smoker Packs per day: 1.5 Smokeless Tobacco Status: No Alcohol use: none Drug use: none - Family History Father Living Status: Age at : 87 Hx Family Cardiac Disorders: Yes (HTN, MA) Mother Living Status: Age at : 68 Hx Family Cancer: Yes (Stomach) Internal Medicine - H&P: Meds Albuterol Sulfate [Proair Hfa] 2 puff IH Q4H PRN 07/15/16 [History] Aspirin 325 mg PO DAILY 07/15/16 [History] Atorvastatin Calcium [Lipitor] 80 mg PO HS 07/15/16 [History] Beclomethasone Diprop 40mcg [QVAR 40 mcg] 1 puff IH BID 07/15/16 [History] Carvedilol [Coreg] 6.25 mg PO BIDWM 07/15/16 [History] Clopidogrel [Plavix] 75 mg PO DAILY 07/15/16 [History] Cyclobenzaprine HCl 30 mg PO HS 07/15/16 [History] Dorzolamide/Timolol [Cosopt] 1 drop BOTH EYES BID 07/15/16 [History] Escitalopram [Lexapro] 20 mg PO DAILY 07/15/16 [History] Gabapentin [Neurontin] 800 mg PO TID 07/15/16 [History] Glucagon,Human Recombinant [Glucagon Emergency Kit] 1 each IJ ONCE PRN 07/15/16 [History] Nitroglycerin [Nitrostat] 0.4 mg SL Q5M PRN 07/15/16 [History] Pantoprazole Sodium [Protonix] 40 mg PO DAILY 07/15/16 [History] Subcutaneous Insulin Pump [T:Slim] 1 each MC AD 04/07/17 [History] 3 Allergy/AdvReac Type Severity Reaction Status Date / Time codeine Allergy Hives Verified 07/06/16 21:35 pregabalin [From Lyrica] Allergy Hives Verified 07/06/16 21:35 All Systems PM: A 10-system review of systems was performed and is negative for pertinent findings except as documented above in the HPI. - Constitutional Constitutional: anorexia, no chills, no fever(s), no weakness - EENT Eyes: no change in vision Nose, mouth and throat: no nasal congestion, no sore throat - Cardiovascular Cardiovascular ROS IM: no chest pain, no palpitations - Respiratory Respiratory: no cough, no dyspnea, no chest congestion, no excessive phlegm production - Gastrointestinal Gastrointestinal: abdominal pain, cramping, no diarrhea, no nausea, no vomiting - Genitourinary Genitourinary ROS male: no dysuria, no urinary frequency, no urinary urgency - Musculoskeletal Musculoskeletal ROS IM: no back pain, no numbness, no tingling - Integumentary Integumentary IM: no erythema, no rash - Neurological Neurological ROS: no dizziness, no numbness, no tingling, no weakness - Constitutional Vitals: Temp Pulse Resp BP Pulse Ox 97.7 F 105 18 121/72 97 04/07/17 22:53 04/07/17 22:53 04/07/17 22:53 04/07/17 22:53 04/07/17 22:53 General appearance: Present: cooperative, A&O X 3, pleasant, no acute distress, answers questions appropriately - Head Head exam: Present: atraumatic, normocephalic - Eye Eye exam: Present: normal appearance, PERRL, conjuntiva pink Pupils: Present: PERRL - Neck Neck exam general surgery: Present: supple. Absent: lymphadenopathy, tenderness - Respiratory Respiratory exam: Present: CTAB. Absent: accessory muscle use, rales, rhonchi, wheezes - Cardiovascular Cardiovascular exam: Present: RRR, +S1, +S2. Absent: diastolic murmur, gallop, rubs, systolic murmur - GI/Abdominal GI/Abdominal exam: Present: normal bowel sounds, soft, no peritoneal signs. Absent: distended, guarding, pulsatile mass, tenderness - Extremities Exam Extremities exam: Present: warm, radial pulses palpable and symmetrical. Absent : calf tenderness, cyanotic, pedal edema - Back Exam Back exam: Present: normal inspection. Absent: paraspinal tenderness, tenderness, vertebral tenderness - Neurological Exam Neurological exam: Present: CN II-XII intact, oriented X3, no focal deficits. Absent: pronater drift, facial droop, speech deficit - Skin Skin exam: Present: dry, intact, warm Internal Med - H&P Results - Labs CBC & Chem 7: 04/07/17 20:00 04/07/17 22:32 Labs: BMP 04/07/17 22:32 Sodium 134 L Potassium 4.7 H D Chloride 103 Carbon Dioxide 20 BUN 29 H Creatinine 1.53 H Glucose 215 H Calcium 8.9 - EKG Data -: EKG Interpreted by Myself EKG shows normal: sinus rhythm (sinus tachycardia with a rate of 107 beats per minute. No acute ST elevation or depression. Normal axis.) - EKG Data Prior EKG available for review: yes When compared to previous EKG: there is no significant change <Sebastian Cisneros - Last Filed: 04/08/17 05:26> Date of Encounter: 04/08/17 Time of Encounter: 05:15 - EENT Ears: no ear pain, no tinnitus Nose, mouth and throat: no nasal congestion, no sinus pressure, no sore throat - Cardiovascular Cardiovascular ROS IM: no chest pain, no dyspnea, no dyspnea on exertion - Respiratory Respiratory: no cough, no dyspnea, no hemoptysis - Gastrointestinal Gastrointestinal: abdominal pain (resolved), cramping, no nausea, no vomiting - Genitourinary Genitourinary ROS male: no dysuria, no flank pain, no hematuria, no urinary frequency - Musculoskeletal Musculoskeletal ROS IM: no back pain - Integumentary Integumentary IM: no rash - Neurological Neurological ROS: no focal weakness, no frequent falls - Psychiatric Psychiatric: no anxiety, no depression - Endocrine Endocrine IM: no polydipsia, no polyuria - Allergic/Immunologic Allergic/Immunologic: no GI upset with certain foods - Constitutional Vitals: Temp Pulse Resp BP Pulse Ox 97.5 F L 85 16 110/71 91 04/08/17 03:51 04/08/17 03:51 04/08/17 03:51 04/08/17 03:51 04/08/17 03:51 General appearance: Present: A&O X 3, pleasant, no acute distress - Head Head exam: Present: normal inspection - Eye Eye exam: Present: EOMI, normal appearance, PERRL. Absent: scleral icterus Pupils: Present: normal accommodation - ENT ENT exam: Present: mucous membranes moist, normal exam - Neck Neck exam general surgery: Present: supple. Absent: tenderness - Respiratory Respiratory exam: Present: CTAB. Absent: rales, rhonchi, wheezes - Cardiovascular Cardiovascular exam: Present: RRR, +S1, +S2. Absent: diastolic murmur, systolic murmur - GI/Abdominal GI/Abdominal exam: Present: normal bowel sounds, soft, no peritoneal signs. Absent: guarding, tenderness - Extremities Exam Extremities exam: Present: warm. Absent: calf tenderness - Back Exam Back exam: Absent: CVA tenderness (L), CVA tenderness (R) - Neurological Exam Neurological exam: Present: alert, oriented X3, no focal deficits - Psychiatric Psychiatric exam: Present: normal affect, normal mood - Skin Skin exam: Present: dry, warm. Absent: rash Internal Med - H&P Results - Labs CBC & Chem 7: 04/07/17 20:00 04/07/17 22:32 Labs: BMP 04/07/17 22:32 Sodium 134 L Potassium 4.7 H D Chloride 103 Carbon Dioxide 20 BUN 29 H Creatinine 1.53 H Glucose 215 H Calcium 8.9 - EKG Data -: EKG Interpreted by Myself EKG shows normal: sinus rhythm - EKG Data EKG comments: 04/08/17 05:20 NSR; no acute changes - Attending Attestation I discussed the patient [place], PMH, ROS, lab data, and exam findings with Dr. Calderon. I then saw and examined patient independently as well. I reviewed his labs and work-up to that point. Although he had borderline criteria for DKA, I was not and am not convinced now that he is in DKA. He feels well and has no symptoms currently. He is on his insulin pump, and we'll stop his SSI and Levemir. We'll continue his IVF and monitor glucose and electrolytes. He is eating now and has no GI upset or complaints. He denies fevers, chills, cough, CP, SOB. Overall, he feels well and at baseline. We'll monitor him this morning, hydrate him, feed him, and, if stable, he may possibly be discharged later today. Other than my comments above and noted exam findings, I agree with Dr. Calderon's assessment and plan.
[2017-04-08] MEDS ORDERED: Magnesium Sulfate 2 GM in D5% in Water 100 ML IVPB ONE (02:57)
[2017-04-08] MEDS ORDERED: 0.9 % Sodium Chloride 1,000 ML IVC SCH (03:00)
[2017-04-08] MEDS ORDERED: D5% in Water 1,000 ML IVC PRN (03:14)
[2017-04-08] MEDS ORDERED: *HR* Dextrose 50 % in Water (Syg) 50 ML SYRINGE IVP PRN (03:14)
[2017-04-08] MEDS ORDERED: Dextrose Gel 15 GM PO PRN ×2 (03:14)
[2017-04-08] MEDS ORDERED: Insulin DETEMIR 100 UNIT/ML X5UNITS SQ SCH (03:15)
[2017-04-08] MEDS ORDERED: Nitroglycerin 0.4 MG TAB.SUBL SL PRN (03:16)
[2017-04-08] MEDS ORDERED: *HR* Heparin 5,000 UNIT/ML VIAL SQ SCH (06:00)
[2017-04-08] MEDS ORDERED: Famotidine 20 MG/2 ML VIAL IVP SCH (06:00)
[2017-04-08 06:18] LABS: Bilirubin,Urine Small (Negative); Blood,Urine Negative (Negative); Clarity,Urine Clear (Clear); Color,Urine Yellow (Yellow); Glucose,Urine (UA) 250 mg/dL (Normal); Ketones,Urine Trace mg/dL (Negative); Leukocyte Esterase,Urine Small (Negative); Nitrite,Urine Negative (Negative); PH,Urine 5.5 pH Units (5.0-8.0); Protein,Urine Negative (Neg-Trace); Specific Gravity,Urine 1.019 (1.010-1.025); Urobilinogen,Urine Normal (Normal)
[2017-04-08 06:21] LABS: Bacteria,Urine None Seen per hpf (None-Few); Hyaline Casts,Urine None Seen per lpf (None-Few); RBC,Urine 0-3 per hpf (0-3); Squamous Epithelial Cell,Urine Moderate per lpf (None-Few)
[2017-04-08] MEDS ORDERED: Insulin LISPRO 300 UNITS/3 ML VIAL SQ SCH ×3 (07:30→21:00)
[2017-04-08 07:40] LABS: Hematocrit 31.7 % (37.5-50.1); Mean Corpuscular HGB Conc 33.1 g/dL (31.6-35.5); Mean Corpuscular Hemoglobin 29.2 pg (28.0-33.3); Mean Corpuscular Volume 88.3 fL (83.0-100.0); Mean Platelet Volume 10.3 fL (9.4-12.4); Platelet Count 244 K/mcL (140-400); Red Blood Count 3.59 M/mcL (4.19-5.50); Red Cell Distribution Width 13.2 % (11.5-14.5)
[2017-04-08 07:41] LABS: Hemoglobin 10.5 g/dL (12.9-16.9)
[2017-04-08 07:42] VITALS: BP 116/68
[2017-04-08 07:52] LABS: Albumin 3.2 g/dL (3.5-5.0); Albumin/Globulin Ratio 0.9 (1.1-2.2); Bilirubin,Total 0.4 mg/dL (0.2-1.2); Calcium 9.1 mg/dL (8.6-10.8); Globulin 3.6 g/dL (2.4-3.5); Magnesium 2.3 mg/dL (1.6-2.6); Phosphorous 3.4 mg/dL (2.3-4.7); Potassium 5.2 mEq/L (3.5-4.5); Total Protein 6.8 g/dL (6.0-8.3)
[2017-04-08] MEDS ORDERED: Dorzolamide/Timolol OPTH 10 ML BOTTLE BOTH EYES SCH (09:00)
[2017-04-08] MEDS ORDERED: Gabapentin 400 MG CAPSULE PO SCH (09:00)
[2017-04-08] MEDS ORDERED: Aspirin 325 MG TABLET PO SCH (09:00)
--- NOTE | 2017-04-08 09:10 | Discharge Summary ---
Date of Encounter: 04/08/17 Time of Encounter: 09:07 - Discharge Diagnosis (1) DKA (diabetic ketoacidoses) Priority: Primary Status: Acute Qualifiers: Diabetes mellitus type: type 1 Diabetes mellitus complication detail: without coma Qualified Code(s): E10.10 - Type 1 diabetes mellitus with ketoacidosis without coma (2) Hypomagnesemia Priority: Primary Status: Acute (3) Hyperkalemia Priority: Primary Status: Acute (4) Acute kidney injury superimposed on CKD Priority: Primary Status: Acute (5) Uncontrolled diabetes mellitus Priority: Secondary Status: Chronic Qualifiers: Diabetes mellitus type: type 1 Diabetes mellitus complication status: with kidney complications Diabetes mellitus complication detail: with chronic kidney disease Chronic kidney disease stage: stage 3 (moderate) Qualified Code(s): E10.22 - Type 1 diabetes mellitus with diabetic chronic kidney disease ; E10.65 - Type 1 diabetes mellitus with hyperglycemia; E10.65 - Type 1 diabetes mellitus with hyperglycemia; E10.65 - Type 1 diabetes mellitus with hyperglycemia; E10.65 - Type 1 diabetes mellitus with hyperglycemia; N18.3 - Chronic kidney disease, stage 3 (moderate); N18.3 - Chronic kidney disease, stage 3 (moderate) (6) COPD (chronic obstructive pulmonary disease) Priority: Secondary Status: Chronic Qualifiers: COPD type: unspecified COPD Qualified Code(s): J44.9 - Chronic obstructive pulmonary disease, unspecified (7) HTN (hypertension) Priority: Secondary Status: Chronic Qualifiers: Hypertension type: unspecified Qualified Code(s): I10 - Essential (primary ) hypertension (8) HLD (hyperlipidemia) Priority: Secondary Status: Chronic Qualifiers: Hyperlipidemia type: unspecified Qualified Code(s): E78.5 - Hyperlipidemia , unspecified (9) CAD (coronary artery disease) Priority: Secondary Status: Chronic Qualifiers: Coronary Disease-Associated Artery/Lesion type: [place] artery [place] vs. transplanted heart: [place] heart Associated angina: without angina Qualified Code(s): I25.10 - Atherosclerotic heart disease of [place] coronary artery without angina pectoris - Discharge Medications Home Medications: Albuterol Sulfate [Proair Hfa] 2 puff IH Q4H PRN 07/15/16 [History] Aspirin 325 mg PO DAILY 07/15/16 [History] Atorvastatin Calcium [Lipitor] 80 mg PO HS 07/15/16 [History] Beclomethasone Diprop 40mcg [QVAR 40 mcg] 1 puff IH BID 07/15/16 [History] Carvedilol [Coreg] 6.25 mg PO BIDWM 07/15/16 [History] Clopidogrel [Plavix] 75 mg PO DAILY 07/15/16 [History] Cyclobenzaprine HCl 30 mg PO HS 07/15/16 [History] Dorzolamide/Timolol [Cosopt] 1 drop BOTH EYES BID 07/15/16 [History] Escitalopram [Lexapro] 20 mg PO DAILY 07/15/16 [History] Gabapentin [Neurontin] 800 mg PO TID 07/15/16 [History] Glucagon,Human Recombinant [Glucagon Emergency Kit] 1 each IJ ONCE PRN 07/15/16 [History] Nitroglycerin [Nitrostat] 0.4 mg SL Q5M PRN 07/15/16 [History] Pantoprazole Sodium [Protonix] 40 mg PO DAILY 07/15/16 [History] Subcutaneous Insulin Pump [T:Slim] 1 each MC AD 04/07/17 [History] Allergies/Adverse Reactions: 3 Allergy/AdvReac Type Severity Reaction Status Date / Time codeine Allergy Hives Verified 07/06/16 21:35 pregabalin [From Lyrica] Allergy Hives Verified 07/06/16 21:35 Date of admission: 04/07/17 22:25 Primary care physician: Steffen Cobb Discharging clinician: Rosenda Lozano Anticipated date of discharge: 04/08/17 - Patient Status Disposition: Home, Self-Care Condition: Good Functional capacity at discharge: independent ambulation Overall status at discharge: patient is back to baseline - Discharge Instructions Instructions: Diabetes Mellitus Type 2 in Adults (DC) Follow Up With: Steffen Cobb DO [Primary Care Provider] - 04/15/17 9:15 am Additional Instructions: F/up with PCP in 1-2 weeks - Diet and Activity Activity: resume usual activities as tolerated Diet: diabetic diet, low fat, low cholesterol, low salt diet, other (renal diet , low K) Hospital course: Mr. Stone is a 52 year old male with history of type 1 diabetes on insulin pump , presents with complaints of abdominal pain, nausea and vomiting. He was noted to have very mild diabetic ketoacidosis in the emergency room with random blood glucose above 200, positive serum beta hydroxybutyric acid, slightly elevated anion gap and low serum bicarbonate. He received a dose of IV insulin along with IV hydration and supportive care with which his symptoms significantly improved. He did not require IV insulin drip. He was noted to have hyperkalemia and hypomagnesemia and he received Kayexalate and IV magnesium sulfate respectively with improvement. Patient has been restarted on his home dose of insulin pump and his blood sugars today are normal and he is anxious to be discharged home. His care has been discussed with his at bedside, who seemed to be well aware of his medical condition. He does have an outpatient follow-up appointment with his primary care provider and endocrinology and he is medically stable for discharge. - Time Spent with Patient Total time spent providing and/or coordinating discharge services: Greater than 30 minutes (40 min) - Constitutional Vitals: Temp Pulse Resp BP Pulse Ox 97.8 F 75 16 116/68 95 04/08/17 07:39 04/08/17 07:39 04/08/17 07:39 04/08/17 07:39 04/08/17 07:39 General appearance: Present: A&O X 3, answers questions appropriately - Respiratory Respiratory exam: Present: CTAB. Absent: accessory muscle use, rales, rhonchi, wheezes - Cardiovascular Cardiovascular exam: Present: RRR, +S1, +S2. Absent: diastolic murmur, gallop, rubs, systolic murmur
[2017-04-08] MEDS ORDERED: Beclomethasone 40mcg MDI IH SCH (10:00)
--- NOTE | 2017-04-08 12:25 | Electrocardiograph Report ---
[place] [id number] Test Date: 2017-04-07 Pat Name: Cali Stone Department: 103 Room: 2N06 Gender: M [employer]: : 1965 Requested By: Monica Adams Order Number: [id number] Reading MD: Delaney Thompson Measurements Intervals [place] Rate: 107 P: 75 [place]: 132 QRS: 73 QRSD: 104 T: 74 QT: 317 QTc: 380 Interpretive Statements SINUS TACHYCARDIA ABNORMAL RHYTHM ECG Low Voltage in limb leads Electronically Signed On 04-08-2017 12:24:09 EDT by Delaney Thompson
== END 2017-04-08 09:24 | disposition home or self-care (01) ==
LOC: 2NNU 19:48 → EMEROO 19:48 → 2NNU 22:39
PROVIDERS: ADMIT Pediatrics; ATTEND Internal Medicine

== ENCOUNTER 2017-08-19 18:24 | Inpatient (IN) ==
--- NOTE | 2017-08-19 19:45 | Emergency Department Note ---
Disposition Clinical Impression: Dehydration, Elevated troponin I level, Hyperglycemia, CKD stage 4 due to type 2 diabetes mellitus Disposition: Admitted As Inpatient Condition: Serious Time of Disposition: 22:29 Nausea/Vomiting/Diarrhea HPI - General Chief complaint: ED Recheck/Abnormal Lab/Rx Stated complaint: Hyperglycemia Time Seen by Provider: 08/19/17 19:45 Source: EMS Limitations: no limitations Nursing Notes Reviewed: Yes Vital Signs Reviewed: Yes - History of Present Illness HPI Narrative: 52-year-old male history of CAD, COPD, HTN, insulin-dependent diabetes, presents complaining of nausea vomiting for 2-3 days. Patient states he is hardly able to eat or drink anything, he has been losing about 5 pounds weight, he has been throwing up throughout the day for several days, he thinks he has "DKA" the patient denies chest pain, although he does has history of the status post stents 2. The patient denies fever and chills. The patient does have an insulin pump, his sugars been running in the 5 to 600s lately, although his last check was 3:15. Patient denies dysuria hematuria, denies hemoptysis hematochezia or melena. Pt Subjective Complaint: nausea, vomiting Onset (ago): hour(s) Associated Abdominal Pain: Yes If pain, Location of pain: diffuse Radiation: diffuse Severity: moderate Severity scale (1-10): 5 Quality: aching Consistency: intermittent Improves with: nothing Worsens with: nonthing Associated symptoms: Reports: nausea/vomiting. Denies: myalgias, chest pain, cough, diaphoresis, rash, dysuria - Related Data Home Medications Medication Instructions Recorded Confirmed Albuterol Sulfate [Proair Hfa] 2 puff IH Q4H PRN 07/15/16 08/19/17 Aspirin 325 mg PO Q72H 07/15/16 08/19/17 Atorvastatin Calcium [Lipitor] 80 mg PO HS 07/15/16 08/19/17 Carvedilol [Coreg] 6.25 mg PO BIDWM 07/15/16 08/19/17 Clopidogrel [Plavix] 75 mg PO QPM 07/15/16 08/19/17 Cyclobenzaprine HCl 20 mg PO HS 07/15/16 08/19/17 Dorzolamide/Timolol [Cosopt] 1 drop BOTH EYES BID 07/15/16 08/19/17 Escitalopram [Lexapro] 20 mg PO DAILY 07/15/16 08/19/17 Gabapentin [Neurontin] 800 mg PO TID 07/15/16 08/19/17 Glucagon,Human Recombinant 1 each IJ ONCE PRN 07/15/16 08/19/17 [Glucagon Emergency Kit] Nitroglycerin [Nitrostat] 0.4 mg SL Q5M PRN 07/15/16 08/19/17 Pantoprazole Sodium [Protonix] 40 mg PO DAILY 07/15/16 08/19/17 Subcutaneous Insulin Pump [T:Slim] 1 each MC AD 04/07/17 08/19/17 Buspirone HCl [Buspar] 5 mg PO BID 08/19/17 08/19/17 Umeclidinium Brm/Vilanterol Tr 1 each IH DAILY 08/19/17 08/19/17 [Anoro Ellipta 62.5-25 Mcg INH] Allergies Allergy/AdvReac Type Severity Reaction Status Date / Time codeine Allergy Hives Verified 08/19/17 18:26 pregabalin [From Lyrica] Allergy Hives Verified 08/19/17 18:26 All systems ED: reviewed and negative except as stated. Review of Systems: As Per HPI Constitutional: Denies: fever, chills Eyes: Denies: eye pain ENT ED: Denies: ear pain Cardiovascular: Denies: chest pain Respiratory: Denies: cough Gastrointestinal: Reports: as per HPI, abdominal pain, nausea, vomiting Genitourinary: Denies: urgency Musculoskeletal: Denies: back pain Integumentary: Denies: rash, abrasion Neurological: Denies: headache Psychiatric: Denies: anxiety Past Medical History - Past Medical History Attestation: Yes The following information was validated with the patient. Source: patient Medical history: Reports: non-contributory, arthritis, cardiomyopathy, CHF, COPD , coronary artery disease, CVA, diabetes, GERD, glaucoma, hyperlipidemia, hypertension, myocardial infarction, osteoporosis, peripheral artery disease, renal disease, TIA, other Surgical history: Reports: angioplasty/stent, appendectomy, cataract, herniorrhaphy, other Psychiatric history: Reports: anxiety, depression - Social History Smoking Status: Current every day smoker Smokeless Tobacco Status: No Alcohol use: Reports: none Drug use: Reports: none Physical Exam - General Limitations: no limitations General appearance: alert, cachectic - Eye Eye exam: Present: normal appearance - ENT ENT exam: mucous membranes dry - Neck Neck exam: Present: normal inspection - Chest Chest inspection: Present: normal inspection - Respiratory Respiratory exam: Present: normal lung sounds bilaterally. Absent: respiratory distress - Cardiovascular Cardiovascular exam: Present: tachycardia - Abdominal Exam Abdominal exam: Present: soft, tenderness. Absent: guarding, rebound Abdominal tenderness: Present: diffuse, mild - Extremities Exam Extremities exam: Present: normal inspection, full ROM - Neurological Exam Neurological exam: Present: alert, oriented X3 - Skin Skin exam: Present: dry Course Course Narrative: 52-year-old male with nausea vomiting for 2-3 days, history of DKA and previous admissions last admission was several months to a year ago, he thinks patient also has history of COPD therefore will get CBC BMP troponin, beta hydroxybutyrate acid, urinalysis, chest x-ray, the patient appears cachectic and with dry mucous membranes, suspect DKA likely, although his sugar was only 2 :15 when he distracted at bedside with his home Accu-Chek, 2 L of fluid were ordered we will reassess. - Reevaluation(s) Reevaluation #1: After fluid administration, the patient is feeling somewhat better, but added antiemetics as well as Protonix, did have an elevated troponin I think is secondary to dehydration and chronic kidney disease, is no acute ischemic changes on his EKG, however given elevated troponin dehydration, his anion gap is 18 but is normal potassium, his blood sugars in the 190s on his chemistry, there is no indication for an insulin drip, I did discuss this case with the hospitalist admitted to Dr Susannah Gallegos Time: 22:28 Vital Signs Temperature 98.1 F 08/19/17 18:26 Pulse Rate 114 08/19/17 18:26 Respiratory Rate 20 08/19/17 18:26 Blood Pressure 100/69 08/19/17 18:26 O2 Sat by Pulse Oximetry 95 08/19/17 18:26 Temperature 98.1 F 08/19/17 18:26 Pulse Rate 114 08/19/17 18:26 Respiratory Rate 20 08/19/17 18:26 Blood Pressure 100/69 08/19/17 18:26 O2 Sat by Pulse Oximetry 95 08/19/17 18:26 Oxygen Delivery Oxygen Delivery Room Air Nausea/Vomiting/Diarrhea - MDM Narrative Medical decision making narrative: 52-year-old male with dehydration, elevated troponin, CK D, admitted to medicine service, he is borderline DKA, he has not anion gap of 18 but no acidosis, and his blood sugars now 190, we will hold off on insulin drip, decision for the hospitalist loss was did discuss at bedside, at this time fluid hydration has been positive, we will see if his anion gap is closed after fluids, and bolus insulin via his insulin pump. Patient is admitted in hemodynamically stable condition to the hospitalist service - Differential Diagnosis Likely: clostridium difficile infection, dehydration - Medical Records Medical records reviewed: Yes I reviewed the patient's medical records. - Lab Data Lab results reviewed: Yes I reviewed the patient's lab results. Result diagrams: 08/19/17 20:59 08/19/17 20:59 Lab Results 08/19/17 08/19/17 08/19/17 Range/Units 20:15 20:59 20:59 WBC 9.6 (4.3-11.1) K/mcL RBC 4.95 (4.19-5.50) M/mcL Hgb 14.2 (12.9-16.9) g/dL Hct 41.2 (37.5-50.1) % MCV 83.2 (83.0-100.0) fL MCH 28.7 (28.0-33.3) pg MCHC 34.5 (31.6-35.5) g/dL RDW 14.0 (11.5-14.5) % Plt Count 337 (140-400) K/mcL MPV 10.4 (9.4-12.4) fL Immature Gran % 0.4 (0-4) % Seg Neutrophils % 57.4 % Lymphocytes % 30.7 % Monocytes % 6.8 % Eosinophils % 4.1 % Basophils % 0.6 % Neutrophils # 5.5 (1.6-8.9) K/mcL Lymphocytes # 2.9 (0.6-4.6) K/mcL Monocytes # 0.7 (0.0-1.3) K/mcL Eosinophils # 0.4 (0.0-0.6) K/mcL Basophils # 0.1 (0.0-0.2) K/mcL VBG pH (7.32-7.42) pH Units VBG pCO2 (41-51) mmHg VBG pO2 (25-50) mmHg VBG HCO3 (21-27) mEq/L Sodium 133 L (136-145) mEq/L Potassium 4.6 (3.5-5.1) mEq/L Chloride 92 L (98-107) mEq/L Carbon Dioxide 23 (23-29) mEq/L BUN 45 H (6-20) mg/dL Creatinine 2.07 H (0.70-1.30) mg/dL Est GFR ( Amer) 41 L (> 60) Est GFR (Non-Af Amer) 34 L (> 60) BUN/Creatinine Ratio 22 (6-26) Glucose 191 H (70-105) mg/dL Calculated Osmolality 293 (280-300) Calcium 11.1 H (8.6-10.3) mg/dL Total Bilirubin 0.7 (0.3-1.0) mg/dL AST 15 (13-39) Units/L ALT 14 (7-52) Units/L Alkaline Phosphatase 101 (34-104) Units/L Troponin I (< 0.04) ng/mL Serum Total Protein 8.3 (6.4-8.9) g/dL Albumin 4.9 (3.5-5.7) g/dL Globulin 3.4 (2.4-3.5) g/dL Albumin/Globulin Ratio 1.4 (1.1-2.2) Beta-Hydroxybutyric Acd (0.02-0.27) mmol/L Urine Color Yellow (Yellow) Urine Clarity Clear (Clear) Urine pH 5.5 (5.0-8.0) pH Units Ur Specific [place] 1.024 (1.010-1.025) Urine Protein 30 H (Neg-Trace) mg/dL Urine Glucose (UA) >=1000 H (Normal) mg/dL Urine Ketones 15 H (Negative) mg/dL Urine Blood Negative (Negative) Urine Nitrite Negative (Negative) Urine Bilirubin Large H (Negative) Urine Urobilinogen Normal (Normal) mg/dL Ur Leukocyte Esterase Negative (Negative) Urine Microscopic RBC 0-3 (0-3) per hpf Urine Microscopic WBC 0-3 (0-3) per hpf Ur Squamous Epith Cells Many H (None-Few) per lpf Urine Bacteria None Seen (None-Few) per hpf Hyaline Casts None Seen (None-Few) per lpf Ur Culture Indicated? NO (NO) 08/19/17 08/19/17 08/19/17 Range/Units 20:59 20:59 21:17 WBC (4.3-11.1) K/mcL RBC (4.19-5.50) M/mcL Hgb (12.9-16.9) g/dL Hct (37.5-50.1) % MCV (83.0-100.0) fL MCH (28.0-33.3) pg MCHC (31.6-35.5) g/dL RDW (11.5-14.5) % Plt Count (140-400) K/mcL MPV (9.4-12.4) fL Immature Gran % (0-4) % Seg Neutrophils % % Lymphocytes % % Monocytes % % Eosinophils % % Basophils % % Neutrophils # (1.6-8.9) K/mcL Lymphocytes # (0.6-4.6) K/mcL Monocytes # (0.0-1.3) K/mcL Eosinophils # (0.0-0.6) K/mcL Basophils # (0.0-0.2) K/mcL VBG pH 7.40 (7.32-7.42) pH Units VBG pCO2 35 L (41-51) mmHg VBG pO2 74 H (25-50) mmHg VBG HCO3 22 (21-27) mEq/L Sodium (136-145) mEq/L Potassium (3.5-5.1) mEq/L Chloride (98-107) mEq/L Carbon Dioxide (23-29) mEq/L BUN (6-20) mg/dL Creatinine (0.70-1.30) mg/dL Est GFR ( Amer) (> 60) Est GFR (Non-Af Amer) (> 60) BUN/Creatinine Ratio (6-26) Glucose (70-105) mg/dL Calculated Osmolality (280-300) Calcium (8.6-10.3) mg/dL Total Bilirubin (0.3-1.0) mg/dL AST (13-39) Units/L ALT (7-52) Units/L Alkaline Phosphatase (34-104) Units/L Troponin I 0.12 H* (< 0.04) ng/mL Serum Total Protein (6.4-8.9) g/dL Albumin (3.5-5.7) g/dL Globulin (2.4-3.5) g/dL Albumin/Globulin Ratio (1.1-2.2) Beta-Hydroxybutyric Acd > 2.00 H (0.02-0.27) mmol/L Urine Color (Yellow) Urine Clarity (Clear) Urine pH (5.0-8.0) pH Units Ur Specific [place] (1.010-1.025) Urine Protein (Neg-Trace) mg/dL Urine Glucose (UA) (Normal) mg/dL Urine Ketones (Negative) mg/dL Urine Blood (Negative) Urine Nitrite (Negative) Urine Bilirubin (Negative) Urine Urobilinogen (Normal) mg/dL Ur Leukocyte Esterase (Negative) Urine Microscopic RBC (0-3) per hpf Urine Microscopic WBC (0-3) per hpf Ur Squamous Epith Cells (None-Few) per lpf Urine Bacteria (None-Few) per hpf Hyaline Casts (None-Few) per lpf Ur Culture Indicated? (NO) - Radiology Data Radiology results reviewed: Yes I reviewed the patient's radiology results. Chest X-Ray 08/19/17 19:30 IMPRESSION: No acute abnormality D/ / Mp Mesa MD / Mp Mesa MD Interpreting Provider: Mp Mesa MD - EKG Data EKG attestation: Yes I reviewed and interpreted this EKG. Rate: tachycardia (10 7 bpm CO 145 QRS 101 QTC 377 no acute ischemic changes.) Rhythm: NSR [place]/QRS: normal Interpretation: no acute changes - Core Measures AMI Core Measures Followed: Yes Attestation Statement - Attestation Attestation: I examined this patient and my medical decision-making was reviewed with the Resident Physician. I agree with the documented findings, disposition and treatment plan as described except to the extent set forth below. Somewhat ill appearing but non-toxic. Not in DKA. Generalized illness, suspect this will improve with hydration. Mild troponin elevation not common for him, silent GA definitely a possibility in this brittle type I diabetic. Kidney function has been worse than it is now, but this is the highest his creatinine has been in over a year.
[2017-08-19] MEDS ORDERED: Ondansetron 4 MG/2 ML VIAL IVP ONE (20:00)
[2017-08-19 20:27] LABS: Bilirubin,Urine Large (Negative); Blood,Urine Negative (Negative); Clarity,Urine Clear (Clear); Color,Urine Yellow (Yellow); Glucose,Urine (UA) >=1000 mg/dL (Normal); Ketones,Urine 15 mg/dL (Negative); Leukocyte Esterase,Urine Negative (Negative); Nitrite,Urine Negative (Negative); PH,Urine 5.5 pH Units (5.0-8.0); Protein,Urine 30 mg/dL (Neg-Trace); Specific Gravity,Urine 1.024 (1.010-1.025); Urobilinogen,Urine Normal (Normal)
[2017-08-19 20:29] LABS: Bacteria,Urine None Seen per hpf (None-Few); Hyaline Casts,Urine None Seen per lpf (None-Few); RBC,Urine 0-3 per hpf (0-3); Squamous Epithelial Cell,Urine Many per lpf (None-Few); WBC,Urine 0-3 per hpf (0-3)
[2017-08-19] MEDS: 0.9 % Sodium Chloride 1,000 ML IVC SCH ×2 (20:52→22:33)
[2017-08-19 21:07] LABS: Basophils # 0.1 K/mcL (0.0-0.2); Basophils % 0.6 %; Eosinophils # 0.4 K/mcL (0.0-0.6); Eosinophils % 4.1 %; Hematocrit 41.2 % (37.5-50.1); Hemoglobin 14.2 g/dL (12.9-16.9); Immature Granulocytes % 0.4 % (0-4); Lymphocytes # 2.9 K/mcL (0.6-4.6); Lymphocytes % 30.7 %; Mean Corpuscular HGB Conc 34.5 g/dL (31.6-35.5); Mean Corpuscular Hemoglobin 28.7 pg (28.0-33.3); Mean Corpuscular Volume 83.2 fL (83.0-100.0); Mean Platelet Volume 10.4 fL (9.4-12.4); Monocytes # 0.7 K/mcL (0.0-1.3); Monocytes % 6.8 %; Neutrophils # 5.5 K/mcL (1.6-8.9); Platelet Count 337 K/mcL (140-400); Red Blood Count 4.95 M/mcL (4.19-5.50); Segmented Neutrophils % 57.4 %
[2017-08-19 21:22] LABS: Albumin 4.9 g/dL (3.5-5.7); Albumin/Globulin Ratio 1.4 (1.1-2.2); Bilirubin,Total 0.7 mg/dL (0.3-1.0); Calcium 11.1 mg/dL (8.6-10.3); Globulin 3.4 g/dL (2.4-3.5); Potassium 4.6 mEq/L (3.5-5.1); Total Protein 8.3 g/dL (6.4-8.9)
[2017-08-19 21:22] LABS: VBG HCO3 22 mEq/L (21-27); VBG PCO2 35 mmHg (41-51); VBG PO2 74 mmHg (25-50)
[2017-08-19] MEDS ORDERED: Aspirin 81 MG TAB.CHEW PO STA (21:37)
[2017-08-19] MEDS ORDERED: Pantoprazole 40 MG VIAL IVP ONE (22:15)
--- NOTE | 2017-08-19 23:11 | Internal Med History&Physical ---
<Haseeb Boyd - Last Filed: 08/20/17 01:30> Date of Encounter: 08/20/17 Time of Encounter: 23:10 Assessment and Plan (1) Hyperglycemia Current visit: Yes Status: Acute Patient IDDM with hx of prior DKA. Patient has been nauseus and vomiting for the last 2-3 days. likely due to viral gastritis. Patient denies diarrhea. Patient reports sugars in the 500s, 600s at home Glucose only 191 in ED. Gap 18 Beta Hydroxybutyric acid >2 15 Ketones in urine Patient not started on insulin drip. Patient given NS rehydration and bolus of insulin via insulin pump. Continue use of insulin pump. repeat bmp ordered to monitor gap still pending. (2) Elevated troponin I level Current visit: Yes Status: Acute Troponin 0.12 on admission likely 2/2 demand/dehydration/kidney disease Patient's EKG showed no ischemia and no changes from prior. Patient denies having any chest pain or SOB. Patient has prior hx of [place] disease, however has no prior history of chronically elevated troponins despite prior cr's higher than current. Patient has hx of CAD s/p 2 stents in 2008. Last ECHO 2011 showed EF 35-45% basal to mid inferior and inferolateral wall akinesis otherwise moderate to severe global hypokinesis Stress test 2012 showed old infarct but no new ischemia Per eCW cardio has wanted to pursue an out patient LHC for years but patient has no showed to appointments. Spoke with gas pumping station helper It Coordinator Dr. Osborn who agreed to see patient in the AM in consult. (3) CAD (coronary artery disease) Current visit: No Status: Chronic Hx of CAD s/p 2 stents. patient on home ASA, Statin, BB, Plavix continue home meds. Qualifiers: Coronary Disease-Associated Artery/Lesion type: [place] artery [place] vs. transplanted heart: [place] heart Associated angina: without angina Qualified Code(s): I25.10 - Atherosclerotic heart disease of [place] coronary artery without angina pectoris (4) Dehydration Current visit: Yes Status: Acute Secondary to viral gastritis continue IV fluids. continue zofran for nausea. (5) Diabetes Current visit: Yes Status: Acute Continue accuchecks continue use of insulin pump. start diabetic diet. continue to monitor. Qualifiers: Diabetes mellitus type: type 2 Diabetes mellitus complication status: with kidney complications Diabetes mellitus complication detail: with chronic kidney disease Diabetes mellitus termite control representative insulin use: with termite control representative use Chronic kidney disease stage: unspecified stage Qualified Code(s): E11.22 - Type 2 diabetes mellitus with diabetic chronic kidney disease; Z79.4 - terminal superintendent (current) use of insulin; Z79.4 - terminal superintendent (current) use of insulin; Z79.4 - prison (current) use of insulin; Z79.4 - terminal superintendent (current) use of insulin (6) COPD (chronic obstructive pulmonary disease) Current visit: No Status: Chronic Hx of COPD patient denies current SOB above baseline. continue home regimen. Qualifiers: COPD type: COPD with acute exacerbation Qualified Code(s): J44.1 - Chronic obstructive pulmonary disease with (acute) exacerbation Internal Medicine - H&P: HPI Chief complaint: Nausea, Vomiting Admitted From: Emergency Dept Plans for Post Hospital Care: Home History of present illness: Mr. Stone is a 52 year old male C PMHx of IDDM, CAD, CHF, Kidney disease, COPD , CVA, glaucoma reports to the ED c/o N/V x 2-3 days. Patient also reports blood sugars ahve been in the 500s-600s at home. Last blood sugar at home prior to arrival was 315 per patient. Patient clinically dry on exam. Patient denies Diarrhea, hematemesis, chest pain, SOB, Fever, chills. Patient has hx of DKA in the past. Labratory assessement revealed GAP on 18, no hyperkalemia, 15 ketones in urine and >2 hydroxybutyric acid. GLucose only 191 in ED. ED elected that patient did not meet criteria for insulin drip. Patient was given fluid resucitation with NS. Patient's labs also notable for trop of 0.12. Patient has some kidney diseas 2/2 DM but does not have a hx of chronically elevated trops. No chest pain or EKG changes at this time. Patient follows with cardiology but does not keep appointments regularly. Patient supposed to have an out patient LHC but has no showed to appointments. Cardiology consulted and will see patient in the morning. Past Med Surg Social Fam HX - Past Medical History Medical history: non-contributory, arthritis, cardiomyopathy, CHF, COPD, coronary artery disease, CVA, diabetes, GERD, glaucoma, hyperlipidemia, hypertension, myocardial infarction, osteoporosis, peripheral artery disease, renal disease, TIA, other Psychiatric history: anxiety, depression - Past Surgical History Surgical History: angioplasty/stent, appendectomy, cataract, herniorrhaphy, other - Social History Smoking Status: Current every day smoker Smokeless Tobacco Status: No Alcohol use: none Drug use: none - Family History Father Living Status: Hx Family Cardiac Disorders: Yes Mother Living Status: Hx Family Cardiac Disorders: Yes Hx Family Cancer: Yes Internal Medicine - H&P: Meds Albuterol Sulfate [Proair Hfa] 2 puff IH Q4H PRN 07/15/16 [History] Aspirin 325 mg PO Q72H 07/15/16 [History] Atorvastatin Calcium [Lipitor] 80 mg PO HS 07/15/16 [History] Carvedilol [Coreg] 6.25 mg PO BIDWM 07/15/16 [History] Clopidogrel [Plavix] 75 mg PO QPM 07/15/16 [History] Cyclobenzaprine HCl 20 mg PO HS 07/15/16 [History] Dorzolamide/Timolol [Cosopt] 1 drop BOTH EYES BID 07/15/16 [History] Escitalopram [Lexapro] 20 mg PO DAILY 07/15/16 [History] Gabapentin [Neurontin] 800 mg PO TID 07/15/16 [History] Glucagon,Human Recombinant [Glucagon Emergency Kit] 1 each IJ ONCE PRN 07/15/16 [History] Nitroglycerin [Nitrostat] 0.4 mg SL Q5M PRN 07/15/16 [History] Pantoprazole Sodium [Protonix] 40 mg PO DAILY 07/15/16 [History] Subcutaneous Insulin Pump [T:Slim] 1 each AD 04/07/17 [History] Buspirone HCl [Buspar] 5 mg PO BID 08/19/17 [History] Umeclidinium Brm/Vilanterol Tr [Anoro Ellipta 62.5-25 Mcg INH] 1 each IH DAILY 08/19/17 [History] 3 Allergy/AdvReac Type Severity Reaction Status Date / Time codeine Allergy Hives Verified 08/19/17 18:26 pregabalin [From Lyrica] Allergy Hives Verified 08/19/17 18:26 All Systems PM: A 10-system review of systems was performed and is negative for pertinent findings except as documented above in the HPI. - Constitutional Vitals: Temp Pulse Resp BP Pulse Ox 98.1 F 107 16 168/97 97 08/19/17 18:26 08/19/17 22:39 08/19/17 22:39 08/19/17 22:39 08/19/17 22:39 General appearance: Present: A&O X 3, no acute distress, underweight, answers questions appropriately - Head Head exam: Present: atraumatic, normocephalic - Eye Eye exam: Present: PERRL, conjuntiva pink Pupils: Present: PERRL - Neck Neck exam general surgery: Present: supple, trachea midline. Absent: lymphadenopathy - Respiratory Respiratory exam: Present: CTAB. Absent: accessory muscle use, rales, rhonchi, wheezes - Cardiovascular Cardiovascular exam: Present: RRR, +S1, +S2. Absent: diastolic murmur, gallop, rubs, systolic murmur - GI/Abdominal GI/Abdominal exam: Present: normal bowel sounds, soft, no peritoneal signs. Absent: distended, tenderness - Extremities Exam Extremities exam: Present: warm, radial pulses palpable and symmetrical. Absent : calf tenderness, cyanotic, pedal edema - Neurological Exam Neurological exam: Present: alert, CN II-XII intact, oriented X3, no focal deficits. Absent: facial droop, speech deficit - Skin Skin exam: Present: dry, intact Internal Med - H&P Results - Labs CBC & Chem 7: 08/19/17 20:59 08/19/17 20:59 <Augustine Davalos P - Last Filed: 08/20/17 05:28> Date of Encounter: 08/20/17 Internal Medicine - H&P: HPI History of present illness: Mr. Stone is a 52 year old male All Systems PM: A 10-system review of systems was performed and is negative for pertinent findings except as documented above in the HPI. - Constitutional Vitals: Temp Pulse Resp BP Pulse Ox 97.9 F 88 15 100/65 93 08/20/17 03:37 08/20/17 03:37 08/20/17 03:37 08/20/17 03:37 08/20/17 03:37 Internal Med - H&P Results - Labs CBC & Chem 7: 08/20/17 03:52 08/20/17 03:52 Labs: Short CBC 08/20/17 Range/Units 03:52 WBC 8.1 (4.3-11.1) K/mcL Hgb 11.7 L D (12.9-16.9) g/dL Hct 34.0 L (37.5-50.1) % Plt Count 279 (140-400) K/mcL Neutrophils # 4.8 (1.6-8.9) K/mcL BMP 08/20/17 08/20/17 00:29 03:52 Sodium 136 134 L Potassium 4.3 4.3 Chloride 100 100 Carbon Dioxide 23 22 L BUN 42 H 42 H Creatinine 1.94 H 1.90 H Glucose 99 158 H Calcium 9.3 9.1 Cardiac Enzymes 08/20/17 Range/Units 03:52 Troponin I 0.07 H* (< 0.04) ng/mL - Attending Attestation I examined this patient and my medical decision-making was reviewed with the Resident Physician. I agree with the documented findings, disposition and treatment plan as described except to the extent set forth below. I have seen and examined this patient on 08/20/2017. I agree with assessment and plan drawn by the resident physician. Close monitoring of blood sugar level. Consider cardiology evaluation if needed. Noted that troponin trending is downward.
[2017-08-20] MEDS ORDERED: Aspirin 325 MG TABLET PO SCH (01:30)
[2017-08-20] MEDS ORDERED: Ondansetron ODT 4 MG TAB.RAPDIS SL PRN (01:30)
[2017-08-20 02:45] LABS: Calcium 9.3 mg/dL (8.6-10.3); Potassium 4.3 mEq/L (3.5-5.1)
[2017-08-20 04:38] LABS: Basophils % 0.4 %; Eosinophils # 0.4 K/mcL (0.0-0.6); Eosinophils % 4.3 %; Immature Granulocytes % 0.2 % (0-4); Lymphocytes # 2.4 K/mcL (0.6-4.6); Lymphocytes % 29.6 %; Mean Corpuscular HGB Conc 34.4 g/dL (31.6-35.5); Mean Corpuscular Volume 84.4 fL (83.0-100.0); Mean Platelet Volume 10.8 fL (9.4-12.4); Monocytes # 0.5 K/mcL (0.0-1.3); Monocytes % 6.6 %; Neutrophils # 4.8 K/mcL (1.6-8.9); Platelet Count 279 K/mcL (140-400); Red Blood Count 4.03 M/mcL (4.19-5.50); Red Cell Distribution Width 14.3 % (11.5-14.5); Segmented Neutrophils % 58.9 %
[2017-08-20 04:39] LABS: Hemoglobin 11.7 g/dL (12.9-16.9)
[2017-08-20 05:09] LABS: Calcium 9.1 mg/dL (8.6-10.3); Potassium 4.3 mEq/L (3.5-5.1)
[2017-08-20] MEDS ORDERED: *HR* Heparin 5,000 UNIT/ML VIAL SQ SCH (06:00)
[2017-08-20] MEDS ORDERED: Gabapentin 400 MG CAPSULE PO SCH (09:00)
[2017-08-20] MEDS ORDERED: Dorzolamide/Timolol OPTH 10 ML BOTTLE BOTH EYES SCH (09:00)
[2017-08-20] MEDS ORDERED: 0.9 % Sodium Chloride 1,000 ML IVC SCH (09:45)
[2017-08-20] MEDS ORDERED: Budesonide/Formoterol 80/4.5 MDI IH SCH (10:00)
--- NOTE | 2017-08-20 14:09 | Discharge Summary ---
Date of Encounter: 08/20/17 Time of Encounter: 09:15 - Discharge Diagnosis (1) Hyperglycemia Priority: Primary Status: Acute Comments: Patient reports that he was unable to locate a portion of his IV pump for 2 days , he had to control his blood sugar with subcutaneous injections. He reports this was not an effective way to manage his blood sugar. He began having nausea and vomiting, likely due to viral gastroenteritis. Denies diarrhea. He presented to the emergency department with reports of blood sugars in the 500 and 600s at home. Initial glucose on admission was 191. Anion gap on admission was 18, after repeat BMP, gap is 6 at discharge. Pt is anxious to go home and states that he is going to leave AMA if he has to stay overnight. Pt is agreeable to monitoring closely at home. Continue home medications, accuchecks, diet control. (2) Dehydration Priority: Secondary Status: Acute Comments: Dehydration secondary to nausea and vomiting and most likely viral gastritis. Pt received IVF hydration and labs have returned to normal. (3) Diabetes Priority: Secondary Status: Acute Comments: Continue use of personal insulin pump. Maintain diabetic diet at home. Continue Accu-Cheks before meals and at bedtime A1c 11%, diabetes is uncontrolled. Qualifiers: Diabetes mellitus type: type 2 Diabetes mellitus complication status: with kidney complications Diabetes mellitus complication detail: with chronic kidney disease Diabetes mellitus snf insulin use: with intermediate school teacher use Chronic kidney disease stage: unspecified stage Qualified Code(s): E11.22 - Type 2 diabetes mellitus with diabetic chronic kidney disease; Z79.4 - detention (current) use of insulin; Z79.4 - termination clerk (current) use of insulin; Z79.4 - detention (current) use of insulin; Z79.4 - detention (current) use of insulin (4) Nausea & vomiting Priority: Secondary Status: Resolved Comments: Resolved. Antiemetics prn. IVF hydration. Qualifiers: Vomiting type: unspecified Vomiting Intractability: non-intractable Qualified Code(s): R11.2 - Nausea with vomiting, unspecified (5) Elevated troponin I level Priority: Secondary Status: Acute Comments: Elevated troponin. (6) CAD (coronary artery disease) Priority: Secondary Status: Chronic Comments: Pt denies chest pain. Trops elevated, but declining. Most likely due to demand ischemia from n/v, tachycardia, CKD. Continue ASA, statin, BB, Plavix. Qualifiers: Coronary Disease-Associated Artery/Lesion type: [place] artery [place] vs. transplanted heart: [place] heart Associated angina: without angina Qualified Code(s): I25.10 - Atherosclerotic heart disease of [place] coronary artery without angina pectoris (7) Acute kidney injury superimposed on CKD Priority: Secondary Status: Acute Comments: Most likely secondary to nausea and vomiting. Initial serum creatinine was greater than 2, GFR 34. With gentle IV fluid hydration correcting dehydration, serum creatinine is 1.90, GFR 37. Appears to be at pt's baseline. Follow with PCP for continued monitoring. Continue to avoid nephrotoxins. (8) DVT prophylaxis Priority: Secondary Status: Acute Comments: Heparin SQ TID. Pt has been ambulatory. - Discharge Medications Home Medications: Albuterol Sulfate [Proair Hfa] 2 puff IH Q4H PRN 07/15/16 [History] Aspirin 325 mg PO Q72H 07/15/16 [History] Atorvastatin Calcium [Lipitor] 80 mg PO HS 07/15/16 [History] Carvedilol [Coreg] 6.25 mg PO BIDWM 07/15/16 [History] Clopidogrel [Plavix] 75 mg PO QPM 07/15/16 [History] Cyclobenzaprine HCl 20 mg PO HS 07/15/16 [History] Dorzolamide/Timolol [Cosopt] 1 drop BOTH EYES BID 07/15/16 [History] Escitalopram [Lexapro] 20 mg PO DAILY 07/15/16 [History] Gabapentin [Neurontin] 800 mg PO TID 07/15/16 [History] Glucagon,Human Recombinant [Glucagon Emergency Kit] 1 each IJ ONCE PRN 07/15/16 [History] Nitroglycerin [Nitrostat] 0.4 mg SL Q5M PRN 07/15/16 [History] Pantoprazole Sodium [Protonix] 40 mg PO DAILY 07/15/16 [History] Subcutaneous Insulin Pump [T:Slim] 1 each MC AD 04/07/17 [History] Buspirone HCl [Buspar] 5 mg PO BID 08/19/17 [History] Umeclidinium Brm/Vilanterol Tr [Anoro Ellipta 62.5-25 Mcg INH] 1 each IH DAILY 08/19/17 [History] Budesonide/Formoterol 80/4.5 [Symbicort 80/4.5] 1 puff IH BIDR inhaler [Rx] Allergies/Adverse Reactions: 3 Allergy/AdvReac Type Severity Reaction Status Date / Time codeine Allergy Hives Verified 08/19/17 18:26 pregabalin [From Lyrica] Allergy Hives Verified 08/19/17 18:26 Date of admission: 08/20/17 05:26 Primary care physician: Steffen Cobb Discharging clinician: Neli Darden Anticipated date of discharge: 08/20/17 - Patient Status Disposition: Home, Self-Care Condition: Good Functional capacity at discharge: independent ambulation Overall status at discharge: patient is progressing back to baseline - Discharge Instructions Follow Up With: Steffen Cobb DO [Primary Care Provider] - 08/26/17 2:30 pm Additional Instructions: Please follow up with your PCP in the next 7-10 days for a follow up visit. Return to the ER as needed for any other problems or concerns or if your symptoms return or worsen. Take your normal medications as you normally would. Return to your normal activities as tolerated. - Diet and Activity Activity: increase activity as tolerated Diet: diabetic diet Hospital course: Mr. Stone is a 52 year old male with past medical history significant for diabetes, hyperlipidemia, hypertension, tobacco abuse. Patient presented to the emergency department after 2 days of not being able to find part of his insulin pump and having to manage his blood sugars with subcutaneous insulin coverage. Patient is noncompliant with this treatment regimens including diabetic diet as his A1c is 11.0%. Patient had nausea and vomiting most likely secondary to a viral illness and presented with dehydration, hyperglycemia, TORRIE. Patient also has elevated troponin on admission is declining, in the setting of dehydration and acute on chronic renal disease. Patient was treated with a insulin bolus IV and IV fluids. Initial Arrival Was 18, after Overnight Hydration, Gap Was 12. Will Continue IV Fluid Hydration and Redraw Labs at 4 PM. Patient Denies Any Chest Pain, Nausea, Vomiting, Diaphoresis or Diarrhea. He Denies Any Dizziness or Chest Pain, No Shortness of Breath. Patient denied discussed smoking cessation, he did not appear to have any interest and has declined nicotine replacement therapy. Patient's labs and vitals are stable and within normal limits. Patient is appropriate and stable for discharge. Patient will need to follow up with primary care after discharge for follow-up within 7-10 days of discharge. - Time Spent with Patient Total time spent providing and/or coordinating discharge services: Less than 30 minutes - Constitutional Vitals: Temp Pulse Resp BP Pulse Ox 97.7 F 84 16 90/60 96 08/20/17 11:37 08/20/17 11:37 08/20/17 11:37 08/20/17 11:37 08/20/17 11:37 General appearance: Present: cooperative, A&O X 3, pleasant, no acute distress, underweight, answers questions appropriately - Head Head exam: Present: atraumatic, normal inspection, normocephalic - Eye Eye exam: Present: conjuntiva pink, sclera anicteric - Neck Neck exam general surgery: Present: supple, trachea midline. Absent: lymphadenopathy - Respiratory Respiratory exam: Present: CTAB. Absent: accessory muscle use, chest wall tenderness, rales, respiratory distress, rhonchi, wheezes - Cardiovascular Cardiovascular exam: Present: RRR, +S1, +S2. Absent: diastolic murmur, gallop, rubs, systolic murmur - GI/Abdominal GI/Abdominal exam: Present: normal bowel sounds, soft. Absent: distended, hepatomegaly, tenderness - Extremities Exam Extremities exam: Present: normal capillary refill, normal inspection, warm, radial pulses palpable and symmetrical. Absent: calf tenderness, cyanotic, pedal edema, tenderness - Neurological Exam Neurological exam: Present: alert, oriented X3, no focal deficits. Absent: facial droop, speech deficit - Skin Skin exam: Present: dry, intact, normal color, warm. Absent: rash
[2017-08-20 16:01] VITALS: BP 96/58
[2017-08-20 17:05] LABS: Calcium 8.9 mg/dL (8.6-10.3); Potassium 4.7 mEq/L (3.5-5.1)
[2017-08-20] MEDS ORDERED: FLUARIX QUAD 2017-18 36MOS UP/PF 0.5 ML SYRINGE IM ONE (18:04)
--- NOTE | 2017-08-23 18:04 | Electrocardiograph Report ---
[address] [address] Test Date: 2017-08-19 Pat Name: Cali Stone Department: 102 Room: 3B21 Gender: M Supervisor Picking Crew: : [id number] Requested By: Rafael Figueroa Order Number: [id number] Reading MD: Hoda Harvey Measurements Intervals [place] Rate: 107 P: 66 MO: 145 QRS: 61 QRSD: 101 T: 56 QT: 314 QTc: 377 Interpretive Statements SINUS TACHYCARDIA ABNORMAL RHYTHM ECG Electronically Signed On 08-23-2017 18:02:11 EST by Hoda Harvey
== END 2017-08-20 19:33 | disposition home or self-care (01) | DRG 392 ==
LOC: EMEROO 18:24 → 3BNU 18:24
PROVIDERS: ADMIT Internal Medicine; ATTEND Registered Nurse

== ENCOUNTER 2019-01-17 11:03 | Observation (INO) ==
[2019-01-17] MEDS ORDERED: *HR* Dextrose 50 % in Water (Syg) 50 ML SYRINGE IVP PRN ×2 (11:04→14:34)
--- NOTE | 2019-01-17 11:12 | Emergency Department Note ---
Disposition Clinical Impression: Hyperkalemia DKA (diabetic ketoacidoses) Qualifiers: Diabetes mellitus type: type 1 Diabetes mellitus complication detail: without coma Qualified Code(s): E10.10 - Type 1 diabetes mellitus with ketoacidosis wit hout coma Disposition: Admitted As Inpatient Condition: Fair Referrals: Steffen Cobb DO [Primary Care Provider] - Forms: ED Satisfaction Letter Time of Disposition: 14:46 General Adult HPI - General Stated complaint: dka Time Seen by Provider: 01/17/19 11:03 Source: patient, EMS Limitations: no limitations Nursing Notes Reviewed: Yes Vital Signs Reviewed: Yes - History of Present Illness HPI Narrative: 53-year-old male presents from home via EMS for evaluation of hyperglycemia. EMS placed blood glucose red, "high." Patient is homeless and lives in a van. He is type I diabetic with insulin pump. His symptoms today are nausea with vomiting, abdominal pain, rapid breathing. Onset yesterday. He knows this feels identical to previous episodes of DKA. He denies any preceding illness. He denies noncompliance with his insulin. His insulin catheter site is not new; it is 2 days old. He states the insulin he is using is new. He has not had a pump or insulin catheter malfunctions. 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 [facility] PMH: CAD with NSTEMI, history of coronary stent, hyperkalemia, hypertension, hyperlipidemia, chronic kidney disease stage III, history of noncompliance Habits: Currently everyday smoker, no EtOH, no illicit substances ROS: Positive: Nausea, vomiting, abdominal pain, rapid breathing negative: Fever, chills, chest pain, palpitations, diaphoresis, diarrhea, constipation, dysuria Pain Scale: 6 - Related Data Home Medications Medication Instructions Recorded Confirmed Albuterol Sulfate [Proair Hfa] 2 puff IH Q4H PRN 07/15/16 09/04/17 Aspirin 325 mg PO Q72H 07/15/16 09/04/17 Atorvastatin Calcium [Lipitor] 80 mg PO HS 07/15/16 09/04/17 Carvedilol [Coreg] 6.25 mg PO BIDWM 07/15/16 09/04/17 Clopidogrel [Plavix] 75 mg PO QPM 07/15/16 09/04/17 Cyclobenzaprine HCl 20 mg PO HS 07/15/16 09/04/17 Dorzolamide/Timolol [Cosopt] 1 drop BOTH EYES BID 07/15/16 09/04/17 Escitalopram [Lexapro] 20 mg PO DAILY 07/15/16 09/04/17 Gabapentin [Neurontin] 800 mg PO TID 07/15/16 09/04/17 Glucagon,Human Recombinant 1 each IJ ONCE PRN 07/15/16 09/04/17 [Glucagon Emergency Kit] Nitroglycerin [Nitrostat] 0.4 mg SL Q5M PRN 07/15/16 09/04/17 Pantoprazole Sodium [Protonix] 40 mg PO DAILY 07/15/16 09/04/17 Subcutaneous Insulin Pump [T:Slim] 1 each MC AD 04/07/17 09/04/17 Buspirone HCl [Buspar] 5 mg PO BID 08/19/17 09/04/17 Umeclidinium Brm/Vilanterol Tr 1 each IH DAILY 08/19/17 09/04/17 [Anoro Ellipta 62.5-25 Mcg INH] Mirtazapine [Remeron] 10 mg PO HS 09/04/17 09/04/17 Previous Rx's Medication Instructions Recorded Budesonide/Formoterol 80/4.5 1 puff IH BIDR inhaler 08/20/17 [Symbicort 80/4.5] Azithromycin [Azithromycin 6-Tab 250 mg PO PER PKG DI #6 tab 11/04/17 Pack] predniSONE [Prednisone] 50 mg PO DAILY #4 tablet 11/04/17 Allergies Allergy/AdvReac Type Severity Reaction Status Date / Time codeine Allergy Hives Verified 07/31/18 11:51 pregabalin [From Lyrica] Allergy Hives Verified 07/31/18 11:51 All systems ED: reviewed and negative except as stated. Review of Systems: As Per HPI Past Medical History - Past Medical History Medical history: Reports: non-contributory, arthritis, cardiomyopathy, CHF, COPD, coronary artery disease, CVA, diabetes, GERD, glaucoma, hyperlipidemia, hypertension, myocardial infarction, osteoporosis, peripheral artery disease, renal disease, TIA Surgical history: Reports: angioplasty/stent, appendectomy, cataract, herniorrhaphy, other Psychiatric history: Reports: anxiety, depression - Social History Smoking Status: Current every day smoker Smokeless Tobacco Status: No Alcohol use: Reports: none Drug use: Reports: none Physical Exam Vital Signs Reviewed General: Patient is alert, oriented, and in no acute distress. He is thin and appears older than stated age. Head: atraumatic, normocephalic Eye: normal appearance, PERRL, EOMI, no scleral icterus, no conjunctival injection ENT: mucous membranes moist, normal external ear exam Neck: normal inspection, trachea midline, full ROM Chest: normal inspection, symmetric chest rise Respiratory: Kussmaul breathing pattern, shallow inspiration, scant scattered wheeze. Cardiovascular: Regular rate and rhythm. No clicks, rubs, gallops, or murmors. Normal heart sounds. Abdomen: Bowel sounds present normoactive. Abdomen is soft, nondistended. Mild generalized abdominal tenderness. No guarding or rebound. No organomegaly noted. Musculoskeletal: Spontaneously moving all extremities. Skin: warm, dry, intact. Neuro: GCS 15. No focal neurologic deficits observed. Psych: Patient's affect is appropriate for situation. - General Limitations: no limitations General appearance: alert, in no apparent distress Course Course Narrative: Initial clinical suspicion is DKA. Bedside finished a glucose in the ED read "high" 2. EKG dated 01/18/20 1911:12 interpreted as sinus rhythm with rate of 96. [place] 159, QRS 123, QTC 479. Normal axis. Peak T waves in V3. IVCD. Compared to pre vious EKG dated 07/31/2018 showing no acute ischemic changes comparison. Serum glucose 888. Serum ketones are present. VBG is not acidemic or alkalotic. Anion gap is above 20. Pseudohyponatremia with corrected sodium 143. Hyperkalemia with potassium 6.8. Patient does have peaked T waves on EKG. Giving calcium gluconate and beginning insulin. Will monitor closely. We will repeat a BMP after 2 L IV fluid bolus. Concern is for the patient's potassium. Will then begin IV insulin and maintenance fluids at 150% maintenance rate for the next 6 hours; 6 hour timeline to avoid incidentally con tinuously providing patient excessive fluids. 100% maintenance rate = 92 mg per hour. We will begin patient at 150% maintenance rate = 140 mL per hour. I discussed the above with the admitting hospitalist, Dr. Mccormick, who agrees to send the patient for continued [id number] of his hyperglycemia and hyperkalemia. Vital Signs Temperature 97.5 F L 01/17/19 11:03 Pulse Rate 100 01/17/19 11:03 Respiratory Rate 01/17/19 11:03 Blood Pressure 151/80 01/17/19 11:03 O2 Sat by Pulse Oximetry 01/17/19 11:03 Temperature 97.5 F L 01/17/19 11:03 Pulse Rate 01/17/19 12:22 Respiratory Rate 01/17/19 12:22 Blood Pressure 143/80 01/17/19 12:22 O2 Sat by Pulse Oximetry 01/17/19 12:22 Oxygen Delivery Oxygen Delivery Nasal Cannula Medical Decision Making - Lab Data Result diagrams: 01/17/19 11:22 01/17/19 13:46 Lab Results 01/17/19 01/17/19 01/17/19 Range/Units 11:22 11:22 11:22 WBC 14.4 H (4.3-11.1) K/mcL RBC 4.16 L (4.19-5.50) M/mcL Hgb 12.4 L (12.9-16.9) g/dL Hct 38.8 (37.5-50.1) % MCV 93.3 (83.0-100.0) fL MCH 29.8 (28.0-33.3) pg MCHC 32.0 (31.6-35.5) g/dL RDW 13.2 (11.5-14.5) % Plt Count 296 (140-400) K/mcL MPV 11.1 (9.4-12.4) fL Immature Gran % 0.4 (0-4) % Seg Neutrophils % 77.1 % Lymphocytes % 13.6 % Monocytes % 6.6 % Eosinophils % 1.8 % Basophils % 0.5 % Neutrophils # 11.1 H (1.6-8.9) K/mcL Lymphocytes # 2.0 (0.6-4.6) K/mcL Monocytes # 1.0 (0.0-1.3) K/mcL Eosinophils # 0.3 (0.0-0.6) K/mcL Basophils # 0.1 (0.0-0.2) K/mcL VBG pH (7.32-7.42) pH Units VBG pCO2 (41-51) mmHg VBG pO2 (25-50) mmHg VBG HCO3 (21-27) mEq/L Sodium 130 L (136-145) mEq/L Potassium 6.5 H* (3.5-5.1) mEq/L Chloride 94 L (98-107) mEq/L Carbon Dioxide 13 L (23-29) mEq/L BUN 50 H (6-20) mg/dL Creatinine 2.04 H (0.70-1.30) mg/dL Est GFR ( Amer) 41 L (> 60) Est GFR (Non-Af Amer) 34 L (> 60) BUN/Creatinine Ratio 25 (6-26) Glucose 888 H* (70-105) mg/dL Calculated Osmolality 327 H (280-300) Lactic Acid (0.5-2.2) mmol/L Calcium 10.6 H (8.6-10.3) mg/dL Phosphorus 4.9 H (2.7-4.5) mg/dL Magnesium 1.9 (1.6-2.6) mg/dL Troponin I < 0.03 (< 0.04) ng/mL Beta-Hydroxybutyric Acd > 2.00 H (0.02-0.27) mmol/L 01/17/19 01/17/19 01/17/19 Range/Units 11:22 11:31 13:46 WBC (4.3-11.1) K/mcL RBC (4.19-5.50) M/mcL Hgb (12.9-16.9) g/dL Hct (37.5-50.1) % MCV (83.0-100.0) fL MCH (28.0-33.3) pg MCHC (31.6-35.5) g/dL RDW (11.5-14.5) % Plt Count (140-400) K/mcL MPV (9.4-12.4) fL Immature Gran % (0-4) % Seg Neutrophils % % Lymphocytes % % Monocytes % % Eosinophils % % Basophils % % Neutrophils # (1.6-8.9) K/mcL Lymphocytes # (0.6-4.6) K/mcL Monocytes # (0.0-1.3) K/mcL Eosinophils # (0.0-0.6) K/mcL Basophils # (0.0-0.2) K/mcL VBG pH 7.32 (7.32-7.42) pH Units VBG pCO2 23 L (41-51) mmHg VBG pO2 59 H (25-50) mmHg VBG HCO3 12 L (21-27) mEq/L Sodium 134 L (136-145) mEq/L Potassium 6.4 H (3.5-5.1) mEq/L Chloride 102 (98-107) mEq/L Carbon Dioxide 12 L (23-29) mEq/L BUN 48 H (6-20) mg/dL Creatinine 1.82 H (0.70-1.30) mg/dL Est GFR ( Amer) 47 L (> 60) Est GFR (Non-Af Amer) 39 L (> 60) BUN/Creatinine Ratio 26 (6-26) Glucose 747 H* (70-105) mg/dL Calculated Osmolality 327 H (280-300) Lactic Acid 1.8 (0.5-2.2) mmol/L Calcium 9.7 (8.6-10.3) mg/dL Phosphorus (2.7-4.5) mg/dL Magnesium (1.6-2.6) mg/dL Troponin I (< 0.04) ng/mL Beta-Hydroxybutyric Acd (0.02-0.27) mmol/L
[2019-01-17] MEDS ORDERED: 0.9 % Sodium Chloride 1,000 ML ONE (11:18)
[2019-01-17] MEDS: 0.9 % Sodium Chloride 1,000 ML IVC SCH ×2 (11:22→12:40)
--- NOTE | 2019-01-17 11:23 | Emergency Department Note ---
Disposition Clinical Impression: DKA (diabetic ketoacidoses) Qualifiers: Diabetes mellitus type: type 1 Diabetes mellitus complication detail: without coma Qualified Code(s): E10.10 - Type 1 diabetes mellitus with ketoacidosis without coma Disposition: Admitted As Inpatient Condition: Fair Forms: ED Satisfaction Letter Time of Disposition: 11:23 General Adult HPI - General Chief complaint: ED Nausea/Vomiting/Diarrhea Stated complaint: dka Time Seen by Provider: 01/17/19 11:03 Source: patient, EMS Limitations: no limitations Nursing Notes Reviewed: Yes Vital Signs Reviewed: Yes - History of Present Illness HPI Narrative: Attestation note: Patient was seen with the emergency medicine resident/nurse practitioner/physician assistant baseball coach/transitional resident/medical student: Dr. Aroldo Valentine. I was present for the significant portions of the performance and interpretation of procedures and EKGs. I have personally performed a face to face evaluation on this patient. I have reviewed and agree with history and physical examination patient management and disposition. BRIEFLY: 53-year-old male insulin-dependent diabetic with prior history of CAD CTD hypertension as an insulin pump by EMS for hypertension. Patient comes in with what appears to be hyperventilation the odor possible acetone on his breath he is thin cachectic in appearance he appears clinically dehydrated these tachycardic. Denies dysuria cough with sputum or chest pain per se he will be getting several liters of fluid screening labs including serum acetone VBG EKG chest x-ray admission anticipated provided 45 minutes critical care service with this patient. Disposition pending Pain Scale: 6 - Related Data Home Medications Medication Instructions Recorded Confirmed Albuterol Sulfate [Proair Hfa] 2 puff IH Q4H PRN 07/15/16 09/04/17 Aspirin 325 mg PO Q72H 07/15/16 09/04/17 Atorvastatin Calcium [Lipitor] 80 mg PO HS 07/15/16 09/04/17 Carvedilol [Coreg] 6.25 mg PO BIDWM 07/15/16 09/04/17 Clopidogrel [Plavix] 75 mg PO QPM 07/15/16 09/04/17 Cyclobenzaprine HCl 20 mg PO HS 07/15/16 09/04/17 Dorzolamide/Timolol [Cosopt] 1 drop BOTH EYES BID 07/15/16 09/04/17 Escitalopram [Lexapro] 20 mg PO DAILY 07/15/16 09/04/17 Gabapentin [Neurontin] 800 mg PO TID 07/15/16 09/04/17 Glucagon,Human Recombinant 1 each IJ ONCE PRN 07/15/16 09/04/17 [Glucagon Emergency Kit] Nitroglycerin [Nitrostat] 0.4 mg SL Q5M PRN 07/15/16 09/04/17 Pantoprazole Sodium [Protonix] 40 mg PO DAILY 07/15/16 09/04/17 Subcutaneous Insulin Pump [T:Slim] 1 each MC AD 04/07/17 09/04/17 Buspirone HCl [Buspar] 5 mg PO BID 08/19/17 09/04/17 Umeclidinium Brm/Vilanterol Tr 1 each IH DAILY 08/19/17 09/04/17 [Anoro Ellipta 62.5-25 Mcg INH] Mirtazapine [Remeron] 10 mg PO HS 09/04/17 09/04/17 Previous Rx's Medication Instructions Recorded Budesonide/Formoterol 80/4.5 1 puff IH BIDR inhaler 08/20/17 [Symbicort 80/4.5] Azithromycin [Azithromycin 6-Tab 250 mg PO PER PKG DI #6 tab 11/04/17 Pack] predniSONE [Prednisone] 50 mg PO DAILY #4 tablet 11/04/17 Allergies Allergy/AdvReac Type Severity Reaction Status Date / Time codeine Allergy Hives Verified 07/31/18 11:51 pregabalin [From Lyrica] Allergy Hives Verified 07/31/18 11:51 Past Medical History - Past Medical History Medical history: Reports: non-contributory, arthritis, cardiomyopathy, CHF, COPD, coronary artery disease, CVA, diabetes, GERD, glaucoma, hyperlipidemia, hypertension, myocardial infarction, osteoporosis, peripheral artery disease, renal disease, TIA Surgical history: Reports: angioplasty/stent, appendectomy, cataract, herniorrhaphy, other Psychiatric history: Reports: anxiety, depression - Social History Smoking Status: Current every day smoker Smokeless Tobacco Status: No Alcohol use: Reports: none Drug use: Reports: none Physical Exam - General Limitations: no limitations General appearance: alert, in no apparent distress Course Vital Signs Temperature 97.5 F L 01/17/19 11:03 Pulse Rate 100 01/17/19 11:03 Respiratory Rate 01/17/19 11:03 Blood Pressure 151/80 01/17/19 11:03 O2 Sat by Pulse Oximetry 100 01/17/19 11:03 Temperature 97.5 F L 01/17/19 11:03 Pulse Rate 100 01/17/19 11:03 Respiratory Rate 01/17/19 11:03 Blood Pressure 151/80 01/17/19 11:03 O2 Sat by Pulse Oximetry 100 01/17/19 11:03 Oxygen Delivery Oxygen Delivery Room Air
[2019-01-17] MEDS ORDERED: *HR* Promethazine 25 MG/ML VIAL IVP ONE (11:25)
[2019-01-17 11:33] LABS: Basophils # 0.1 K/mcL (0.0-0.2); Basophils % 0.5 %; Eosinophils # 0.3 K/mcL (0.0-0.6); Eosinophils % 1.8 %; Hematocrit 38.8 % (37.5-50.1); Hemoglobin 12.4 g/dL (12.9-16.9); Immature Granulocytes % 0.4 % (0-4); Lymphocytes % 13.6 %; Mean Corpuscular Hemoglobin 29.8 pg (28.0-33.3); Mean Corpuscular Volume 93.3 fL (83.0-100.0); Mean Platelet Volume 11.1 fL (9.4-12.4); Monocytes % 6.6 %; Neutrophils # 11.1 K/mcL (1.6-8.9); Platelet Count 296 K/mcL (140-400); Red Blood Count 4.16 M/mcL (4.19-5.50); Red Cell Distribution Width 13.2 % (11.5-14.5); Segmented Neutrophils % 77.1 %; White Blood Count 14.4 K/mcL (4.3-11.1)
[2019-01-17 11:34] LABS: VBG HCO3 12 mEq/L (21-27); VBG PCO2 23 mmHg (41-51); VBG PH 7.32 pH Units (7.32-7.42); VBG PO2 59 mmHg (25-50)
[2019-01-17 12:01] LABS: Troponin I < 0.03 ng/mL (< 0.04)
[2019-01-17 12:19] LABS: BUN/Creatinine Ratio 25 (6-26); Blood Urea Nitrogen 50 mg/dL (6-20); Calcium 10.6 mg/dL (8.6-10.3); Carbon Dioxide 13 mEq/L (23-29); Chloride 94 mEq/L (98-107); Glucose 888 mg/dL (70-105); Magnesium 1.9 mg/dL (1.6-2.6); Osmolality,Calculated 327 (280-300); Phosphorous 4.9 mg/dL (2.7-4.5); Potassium 6.5 mEq/L (3.5-5.1); Sodium 130 mEq/L (136-145); eGFR For African Americans 41 (> 60); eGFR For Non-African Americans 34 (> 60)
[2019-01-17] MEDS ORDERED: Calcium Gluconate 1gm/50mL 1 GM/50 ML BAG IVPB ONE (12:28)
[2019-01-17] MEDS ORDERED: Insulin Human Regular 100 UNIT in 0.9 % Sodium Chloride 100 ML IVC SCH (12:30)
[2019-01-17] MEDS ORDERED: 0.9 % Sodium Chloride 1,000 ML IVC SCH (13:00)
[2019-01-17 14:23] LABS: Calcium 9.7 mg/dL (8.6-10.3); Potassium 6.4 mEq/L (3.5-5.1)
[2019-01-17] MEDS ORDERED: 0.9 % Sodium Chloride 1,000 ML IV ONE (14:26)
[2019-01-17] MEDS ORDERED: MOM Conc 10 ML UD.LIQ PO PRN (14:31)
[2019-01-17] MEDS ORDERED: Naloxone 0.4 MG/ML INJ IVP PRN (14:31)
[2019-01-17] MEDS ORDERED: Ondansetron 4 MG/2 ML VIAL IVP PRN (14:31)
[2019-01-17] MEDS ORDERED: traMADol 50 MG TABLET PO PRN (14:31)
[2019-01-17] MEDS ORDERED: Mag Hydrox/Al Hydrox/Simeth 30 ML UDC PO PRN (14:31)
[2019-01-17] MEDS ORDERED: Acetaminophen 325 MG TABLET PO PRN (14:31)
[2019-01-17] MEDS ORDERED: *HR* Promethazine 25 MG/ML VIAL IVP PRN (14:31)
[2019-01-17] MEDS ORDERED: Insulin Regular, Human 100 UNIT/ML IV PRN (14:34)
[2019-01-17] MEDS ORDERED: D5% in 0.45% NACL 1,000 ML IVC PRN (14:34)
--- NOTE | 2019-01-17 14:38 | Internal Med History&Physical ---
Date of Encounter: 01/17/19 Time of Encounter: 15:03 Internal Medicine - H&P: HPI Admitted From: Home Plans for Post Hospital Care: Home History of present illness: Mr. Stone is a 53 year old male past medical history of insulin-dependent diabe amanda, COPD, chronic kidney disease, hypertension, hyperlipidemia, and a CAD presents from home via EMS for evaluation of hyperglycemia. He has type 1 diabetes with an insulin pump. He reported that he has been compliant with insulin use and diabetic diet. Patient is homeless and lives in a van. Started yesterday, he developed nausea with vomiting, abdominal pain, rapid breathing. He knows this feels identical to previous episodes of DKA. He denies any preceding illness. He states the insulin he is using is new. He has not had a pump or insulin catheter malfunctions. 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 He reported he has been having a lot of stress at home recently. He denies fever, chills, or night sweats. Denies recent URI, chest pain, cough, shortness breath, or urinary symptoms. In the ED, his vital signs were stable, labs revealed significantly elevated blood glucose with positive ketone and elevated anion gap. He received IV fluid and was started on insulin drip. She will be admitted for further evaluation and management. CODE STATUS discussed with patient, he wishes full code. Past Med Surg Social Fam HX - Past Medical History Medical history: non-contributory, arthritis, cardiomyopathy, CHF, COPD, coronary artery disease, CVA, diabetes, GERD, glaucoma, hyperlipidemia, hypertension, myocardial infarction, osteoporosis, peripheral artery disease, renal disease, TIA Additional medical history: Patient positive smoker Psychiatric history: anxiety, depression - Past Surgical History Surgical History: angioplasty/stent, appendectomy, cataract, herniorrhaphy, other Additional surgical history: Eye surgery - Social History Smoking Status: Current every day smoker Smokeless Tobacco Status: No Alcohol use: none Drug use: none - Family History Father Living Status: Hx Family Cardiac Disorders: Yes Hx Family Respiratory Disorders: No Hx Family Cancer: No Hx Family GI Disorders: No Hx Family Endocrine Disorder: No Hx Family Neuromuscular Disorders: No Hx Family Neurologic Disorders: No Hx Family HEENT Disorders: No Hx Family Autoimmune Disorders: No Mother Living Status: Hx Family Cardiac Disorders: No Hx Family Respiratory Disorders: No Hx Family Cancer: Yes Hx Family GI Disorders: No Hx Family Endocrine Disorder: No Hx Family Neuromuscular Disorders: No Hx Family Neurologic Disorders: No Hx Family HEENT Disorders: No Hx Family Autoimmune Disorders: No Internal Medicine - H&P: Meds Albuterol Sulfate [Proair Hfa] 2 puff IH Q4H PRN 07/15/16 [History] Aspirin 325 mg PO Q72H 07/15/16 [History] Atorvastatin Calcium [Lipitor] 80 mg PO HS 07/15/16 [History] Carvedilol [Coreg] 6.25 mg PO BIDWM 07/15/16 [History] Clopidogrel [Plavix] 75 mg PO QPM 07/15/16 [History] Cyclobenzaprine HCl 20 mg PO HS 07/15/16 [History] Dorzolamide/Timolol [Cosopt] 1 drop BOTH EYES BID 07/15/16 [History] Escitalopram [Lexapro] 20 mg PO DAILY 07/15/16 [History] Gabapentin [Neurontin] 800 mg PO TID 07/15/16 [History] Glucagon,Human Recombinant [Glucagon Emergency Kit] 1 each IJ ONCE PRN 07/15/16 [History] Nitroglycerin [Nitrostat] 0.4 mg SL Q5M PRN 07/15/16 [History] Pantoprazole Sodium [Protonix] 40 mg PO DAILY 07/15/16 [History] Subcutaneous Insulin Pump [T:Slim] 1 each MC AD 04/07/17 [History] Buspirone HCl [Buspar] 5 mg PO BID 08/19/17 [History] Umeclidinium Brm/Vilanterol Tr [Anoro Ellipta 62.5-25 Mcg INH] 1 each IH DAILY 08/19/17 [History] Budesonide/Formoterol 80/4.5 [Symbicort 80/4.5] 1 puff IH BIDR inhaler 08/20/17 [Rx] Mirtazapine [Remeron] 10 mg PO HS 09/04/17 [History] Azithromycin [Azithromycin 6-Tab Pack] 250 mg PO PER PKG DI #6 tab 11/04/17 [Rx] predniSONE [Prednisone] 50 mg PO DAILY #4 tablet 11/04/17 [Rx] Allergy/AdvReac Type Severity Reaction Status Date / Time codeine Allergy Hives Verified 07/31/18 11:51 pregabalin [From Lyrica] Allergy Hives Verified 07/31/18 11:51 All Systems PM: A 10-system review of systems was performed and is negative for pertinent findings except as documented above in the HPI. Review of systems: REVIEW OF SYSTEMS: CONSTITUTIONAL: No weight loss, fever, chills, weakness or fatigue. HEENT: Eyes: No visual loss, blurred vision, double vision or yellow sclerae. Ears, Nose, Throat: No hearing loss, sneezing, congestion, runny nose or sore throat. SKIN: No rash or itching. CARDIOVASCULAR: No chest pain, chest pressure or chest discomfort. No palpitations or edema. RESPIRATORY: No shortness of breath, cough or sputum. GASTROINTESTINAL: No anorexia, nausea, vomiting or diarrhea. No abdominal pain or blood. GENITOURINARY: No dysuria, urgency, or frequency. NEUROLOGICAL: No headache, dizziness, syncope, paralysis, ataxia, numbness or tingling in the extremities. No change in bowel or bladder control. MUSCULOSKELETAL: No muscle, back pain, joint pain or stiffness. HEMATOLOGIC: No anemia, bleeding or bruising. LYMPHATICS: No enlarged nodes. No history of splenectomy. PSYCHIATRIC: No history of depression or anxiety. ENDOCRINOLOGIC: No reports of sweating, cold or heat intolerance. No polyuria or polydipsia. - Constitutional Vitals: Temp Pulse Resp BP Pulse Ox 97.5 F L 100 19 143/80 100 01/17/19 11:03 01/17/19 12:22 01/17/19 12:22 01/17/19 12:22 01/17/19 12:22 General appearance: Present: A&O X 3 Exam: PHYSICAL EXAMINATION: GENERAL APPEARANCE: The patient is alert, oriented and in no acute distress. HEENT: Head is normocephalic. The sinuses are nontender. Pupils are equal and reactive. The nares are patent. Oropharynx clear without lesions. NECK: Supple without lymphadenopathy. HEART: Regular rate and rhythm. LUNGS: No crackles or wheezes are heard. ABDOMEN: Soft, nontender, nondistended with good bowel sounds heard. Inguinal area is normal. EXTREMITIES: Without cyanosis, clubbing or edema. NEUROLOGICAL: Gross nonfocal. SKIN: Warm and dry without any rash. Internal Med - H&P Results - Labs CBC & Chem 7: 01/17/19 11:22 01/17/19 13:46 Labs: Short CBC 01/17/19 Range/Units 11:22 WBC 14.4 H (4.3-11.1) K/mcL Hgb 12.4 L (12.9-16.9) g/dL Hct 38.8 (37.5-50.1) % Plt Count 296 (140-400) K/mcL Neutrophils # 11.1 H (1.6-8.9) K/mcL BMP 01/17/19 01/17/19 11:22 13:46 Sodium 130 L 134 L Potassium 6.5 H* 6.4 H Chloride 94 L 102 Carbon Dioxide 13 L 12 L BUN 50 H 48 H Creatinine 2.04 H 1.82 H Glucose 888 H* 747 H* Calcium 10.6 H 9.7 Cardiac Enzymes 01/17/19 Range/Units 11:22 Troponin I < 0.03 (< 0.04) ng/mL - ABG Interpretation ABG results: 01/17/19 11:31 VBG pH 7.32 VBG pCO2 23 L VBG pO2 59 H VBG HCO3 12 L - Impressions ITS Impressions Chest X-Ray 01/17/19 11:04 IMPRESSION: No acute cardiopulmonary disease. D/ / Jennifer Rojas MD / Jennifer Rojas MD Interpreting Provider: Jennifer Rojas MD - Assessment and Plan (1) DKA (diabetic ketoacidoses) Current Visit: Yes Status: Acute Assessment and plan: 53-year-old gentleman with history of type 1 diabetes presented with DKA. The underlying trigger is unclear how this moment, no identifiable infection, he has been compliant with insulin and diet control. However, he does report family stress recently. Patient vital signs stable, afebrile. Labs showed DKA and slightly elevated WBC. Patient received IV fluid in the ED, we will continue IV fluid. Insulin drip started at the ED, we will will continue. We will will do Accu-Chek every hour, adjust insulin dose per protocol. Will also check BMP every 4 hours, adjust IV fluid based on the lab results. Keep nothing by mouth until anion gap closes. Endocrine consult if available. Qualifiers: Diabetes mellitus type: type 1 Diabetes mellitus complication detail: without coma Qualified Code(s): E10.10 - Type 1 diabetes mellitus with ketoacidosis without coma (2) Leukocytosis Current Visit: Yes Status: Acute Assessment and plan: Identify able infection currently, will obtain blood culture, continue monitoring. Qualifiers: Leukocytosis type: unspecified Qualified Code(s): D72.829 - Elevated white blood cell count, unspecified (3) CKD stage 4 due to type 2 diabetes mellitus Current Visit: No Status: Chronic Assessment and plan: Baseline creatinine at 2, current creatinine at the baseline. (4) COPD (chronic obstructive pulmonary disease) Current Visit: No Status: Chronic Assessment and plan: Respiratory status stable, continue home medication. Qualifiers: COPD type: COPD with acute exacerbation Qualified Code(s): J44.1 - Chronic obstructive pulmonary disease with (acute) exacerbation (5) HTN (hypertension) Current Visit: No Status: Chronic Assessment and plan: BP controlled currently continue home medications. Qualifiers: Hypertension type: essential hypertension Qualified Code(s): I10 - Essential (primary) hypertension (6) HLD (hyperlipidemia) Current Visit: No Status: Chronic Assessment and plan: Continue home medications. Qualifiers: Hyperlipidemia type: unspecified Qualified Code(s): E78.5 - Hyperlipidemia, unspecified (7) CAD (coronary artery disease) Current Visit: No Status: Chronic Assessment and plan: Continue home medication including aspirin and Plavix. Patient has no chest pain, EKG has no acute ST-T change. Qualifiers: Coronary Disease-Associated Artery/Lesion type: cahto artery [place] vs. transplanted heart: cahto heart Associated angina: without angina Qualified Code(s): I25.10 - Atherosclerotic heart disease of cahto coronary artery without angina pectoris (8) DVT prophylaxis Current Visit: Yes Status: Acute Assessment and plan: Heparin subcutaneous. - Time Spent With Patient Total time spent is greater than 50% in coordination of care (as documented) at patient's floor/unit and/or counseling patient: Greater than 35 minutes
[2019-01-17 15:16] LABS: Basophils % 0.3 %; Eosinophils # 0.2 K/mcL (0.0-0.6); Eosinophils % 1.8 %; Hemoglobin 11.3 g/dL (12.9-16.9); Immature Granulocytes % 0.5 % (0-4); Lymphocytes # 1.9 K/mcL (0.6-4.6); Lymphocytes % 14.3 %; Mean Corpuscular HGB Conc 32.3 g/dL (31.6-35.5); Mean Corpuscular Hemoglobin 30.1 pg (28.0-33.3); Mean Corpuscular Volume 93.1 fL (83.0-100.0); Mean Platelet Volume 10.9 fL (9.4-12.4); Monocytes # 0.9 K/mcL (0.0-1.3); Monocytes % 6.5 %; Platelet Count 284 K/mcL (140-400); Red Blood Count 3.76 M/mcL (4.19-5.50); Red Cell Distribution Width 13.1 % (11.5-14.5); Segmented Neutrophils % 76.6 %
[2019-01-17] MEDS ORDERED: *HR* Heparin 5,000 UNIT/ML VIAL SQ SCH (18:00)
[2019-01-17] MEDS ORDERED: D5% in 0.45% NACL w KCl 20 MEQ/1,000 ML MLS IVC PRN (18:04)
[2019-01-17] MEDS ORDERED: 0.9 % Sodium Chloride w KCl 20 MEQ/1,000 ML MLS IVC SCH (18:15)
[2019-01-17] MEDS ORDERED: 0.45 % Sodium Chloride w/KCl 20 MEQ/1,000 ML MLS IVC SCH (18:15)
[2019-01-17 19:45] VITALS: BP 134/70
[2019-01-17 20:07] LABS: VBG HCO3 20 mEq/L (21-27); VBG PCO2 43 mmHg (41-51); VBG PH 7.28 pH Units (7.32-7.42); VBG PO2 163 mmHg (25-50)
[2019-01-17 20:20] LABS: Calcium 9.5 mg/dL (8.6-10.3); Potassium 5.5 mEq/L (3.5-5.1)
--- NOTE | 2019-01-17 21:54 | Event Note ---
<Oseas Polanco - Last Filed: 01/17/19 21:51> Date of Encounter: 01/17/19 Time of Encounter: 19:45 I was alerted that the patient was interested in leaving AGAINST MEDICAL ADVICE by the patient's nurse. I did present to the patient's bedside and discussed with the patient that he had presented with diabetic ketoacidosis and there are high risks of leaving before this had completely resolved. I did discuss that some of these risks included serious organ damage, diabetic, and potentially . He explained to me that he has been diabetic for 45-50 years and that this is not new for him. He says that he has had DKA 100s of times and that he knows what he is doing. He says that he knows that with the level that his sugar is currently at he will be fine when he goes home. I asked him if he had all the supplies that he needed at home in order to take care of himself including insulin and testing supplies, and he says that he has all the supplies in order to take care of himself including a diabetic insulin pump and all this testing supplies. I asked him if he needed any prescriptions for insulin, test ing supplies, other materials. He assures me that he does not at this time need those things but he feels comfortable that he can go to any hospital in his surrounding area if he needs to. He says that he will not stay because he has someone at home that he needs to take care of. The patient did sign AGAINST MEDICAL ADVICE paperwork and I did witness them. <Sebastian Cisneros - Last Filed: 01/18/19 04:48> Date of Encounter: 01/18/19 Dr. Polanco informed me of the patient leaving AMA.
--- NOTE | 2019-01-19 07:52 | Electrocardiograph Report ---
[place] Test Date: 2019-01-17 Pat Name: Cali Stone Department: EXAMF2 Room: 2N08 Gender: M Shank Sorter: : 1965 Requested By: Aroldo Valentine Order Number: [id number] Reading MD: Ramiro May Measurements Intervals [place] Rate: 96 P: 79 NC: 159 QRS: 63 QRSD: 123 T: 69 QT: 379 QTc: 479 Interpretive Statements Sinus rhythm Consider right atrial enlargement IVCD, consider atypical LBBB Electronically Signed On 01-19-2019 7:50:34 EDT by Ramiro May
== END 2019-01-17 20:50 | disposition left against medical advice (07) ==
LOC: 2NNU 11:03 → EMEROOARM 11:03 → 2NNU 17:27
PROVIDERS: ADMIT Internal Medicine; ATTEND Internal Medicine

== ENCOUNTER 2019-01-18 03:58 | Inpatient (IN) ==
[2019-01-18] MEDS ORDERED: 0.9 % Sodium Chloride 1,000 ML IVC ONE (04:40)
[2019-01-18 05:25] LABS: VBG HCO3 11 mEq/L (21-27); VBG PCO2 26 mmHg (41-51); VBG PH 7.23 pH Units (7.32-7.42); VBG PO2 78 mmHg (25-50)
[2019-01-18 05:56] LABS: Calcium 9.9 mg/dL (8.6-10.3); Potassium 5.9 mEq/L (3.5-5.1)
[2019-01-18] MEDS ORDERED: *HR* Dextrose 50 % in Water (Syg) 50 ML SYRINGE IVP PRN (05:57)
[2019-01-18] MEDS ORDERED: Ondansetron 4 MG/2 ML VIAL IVP ONE (05:59)
[2019-01-18] MEDS ORDERED: Insulin Human Regular 100 UNIT in 0.9 % Sodium Chloride 100 ML IVC SCH (06:00)
--- NOTE | 2019-01-18 06:00 | Emergency Department Note ---
Disposition Clinical Impression: Hyperkalemia DKA (diabetic ketoacidoses) Qualifiers: Diabetes mellitus type: type 1 Diabetes mellitus complication detail: without coma Qualified Code(s): E10.10 - Type 1 diabetes mellitus with ketoacidosis wit hout coma Disposition: Admitted As Inpatient Condition: Fair Referrals: Steffen Cobb DO [Primary Care Provider] - Forms: ED Satisfaction Letter Time of Disposition: 06:27 General Adult HPI - General Chief complaint: ED Nausea/Vomiting/Diarrhea Stated complaint: DKA/AMA from 2N Time Seen by Provider: 01/18/19 04:19 Source: patient Mode of arrival: ambulatory Limitations: no limitations Nursing Notes Reviewed: Yes Vital Signs Reviewed: Yes - History of Present Illness HPI Narrative: 53-year-old male presented to the emergency department after leaving AMA earlier this evening from the hospital service for DKA. Said he just wanted drink water they would not allow him to so he signed out AMA. So they went had a drink of water and he set out front waiting for ride but no one came suicide to come back to the emergency department as they still did not feel very well. Patient says he does have history of diabetes does have an insulin pump has been doing it like he is normally prescribed but has had a lot of stressors at home which they believe is the action that caused him to go into DKA. Patient feels nausea this time otherwise no other complaints including any pain. Has no chest pain. Has not vomited. He has been in DKA in the past feels like he states this feels like his normal DKA. Pain Scale: 6 - Related Data Home Medications Medication Instructions Recorded Confirmed Albuterol Sulfate [Proair Hfa] 2 puff IH Q4H PRN 07/15/16 09/04/17 Aspirin 325 mg PO Q72H 07/15/16 09/04/17 Atorvastatin Calcium [Lipitor] 80 mg PO HS 07/15/16 09/04/17 Carvedilol [Coreg] 6.25 mg PO BIDWM 07/15/16 09/04/17 Clopidogrel [Plavix] 75 mg PO QPM 07/15/16 09/04/17 Cyclobenzaprine HCl 20 mg PO HS 07/15/16 09/04/17 Dorzolamide/Timolol [Cosopt] 1 drop BOTH EYES BID 07/15/16 09/04/17 Escitalopram [Lexapro] 20 mg PO DAILY 07/15/16 09/04/17 Gabapentin [Neurontin] 800 mg PO TID 07/15/16 09/04/17 Glucagon,Human Recombinant 1 each IJ ONCE PRN 07/15/16 09/04/17 [Glucagon Emergency Kit] Nitroglycerin [Nitrostat] 0.4 mg SL Q5M PRN 07/15/16 09/04/17 Pantoprazole Sodium [Protonix] 40 mg PO DAILY 07/15/16 09/04/17 Subcutaneous Insulin Pump [T:Slim] 1 each MC AD 04/07/17 09/04/17 Buspirone HCl [Buspar] 5 mg PO BID 08/19/17 09/04/17 Umeclidinium Brm/Vilanterol Tr 1 each IH DAILY 08/19/17 09/04/17 [Anoro Ellipta 62.5-25 Mcg INH] Mirtazapine [Remeron] 10 mg PO HS 09/04/17 09/04/17 Previous Rx's Medication Instructions Recorded Budesonide/Formoterol 80/4.5 1 puff IH BIDR inhaler 08/20/17 [Symbicort 80/4.5] Azithromycin [Azithromycin 6-Tab 250 mg PO PER PKG DI #6 tab 11/04/17 Pack] predniSONE [Prednisone] 50 mg PO DAILY #4 tablet 11/04/17 Allergies Allergy/AdvReac Type Severity Reaction Status Date / Time codeine Allergy Hives Verified 01/18/19 04:16 pregabalin [From Lyrica] Allergy Hives Verified 01/18/19 04:16 All systems ED: reviewed and negative except as stated. Review of Systems: As Per HPI Past Medical History - Past Medical History Attestation: Yes The following information was validated with the patient. Source: patient Medical history: Reports: non-contributory, arthritis, cardiomyopathy, CHF, COPD, coronary artery disease, CVA, diabetes, GERD, glaucoma, hyperlipidemia, hypertension, myocardial infarction, osteoporosis, peripheral artery disease, renal disease, TIA Surgical history: Reports: angioplasty/stent, appendectomy, cataract, herniorrhaphy, other Psychiatric history: Reports: anxiety, depression - Social History Smoking Status: Current every day smoker Smokeless Tobacco Status: No Alcohol use: Reports: none Drug use: Reports: none Physical Exam - General Limitations: no limitations General appearance: alert, in no apparent distress - Head Head exam: atraumatic, normocephalic, normal inspection - Eye Eye exam: Present: normal appearance, PERRL, EOMI - ENT ENT exam: normal exam, normal oropharynx, mucous membranes moist - Neck Neck exam: Present: normal inspection, full ROM, trachea midline - Chest Chest inspection: Present: normal inspection, symmetric chest wall rise - Respiratory Respiratory exam: Present: normal lung sounds bilaterally - Cardiovascular Cardiovascular exam: Present: regular rate, normal rhythm, normal heart sounds - Abdominal Exam Abdominal exam: Present: soft, Non-Tender, normal bowel sounds. Absent: tenderness, distention, guarding, rebound, rigidity - Extremities Exam Extremities exam: Present: normal inspection, full ROM. Absent: tenderness, pedal edema - Back Exam Back exam: Present: normal inspection, full ROM. Absent: tenderness, CVA tenderness (R), CVA tenderness (L) - Neurological Exam Neurological exam: Present: alert, oriented X3 - Skin Skin exam: Present: warm, dry, intact, normal color Course Vital Signs Temperature 98.6 F 01/18/19 04:13 Pulse Rate 117 01/18/19 04:13 Respiratory Rate 20 01/18/19 04:13 Blood Pressure 165/75 01/18/19 04:13 O2 Sat by Pulse Oximetry 100 01/18/19 04:13 Temperature 98.6 F 01/18/19 04:13 Pulse Rate 117 01/18/19 04:13 Respiratory Rate 20 01/18/19 04:13 Blood Pressure 165/75 01/18/19 04:13 O2 Sat by Pulse Oximetry 100 01/18/19 04:13 Oxygen Delivery Oxygen Delivery Room Air Medical Decision Making - [facility] Narrative Medical decision making narrative: Patient's labs does show an acidosis as well as elevated beta hydroxybutyrate including an anion gap of 21. Patient's potassium is elevated as were okay to start insulin drip at this time. Received a total of 1 L of IV fluids we will give him another at this time. We will admit him to the hospitalist service for further treatment for his DKA. Patient's okay with this plan. Spoke with Dr. Langford who accepted the patient to their service. Patient is admitted in stable condition. Patient did get Zofran for nausea. - Medical Records Medical records reviewed: Yes I reviewed the patient's medical records. - Lab Data Lab results reviewed: Yes I reviewed the patient's lab results. Result diagrams: 01/18/19 05:11 Lab Results 01/18/19 01/18/19 01/18/19 Range/Units 05:11 05:11 05:23 VBG pH 7.23 L (7.32-7.42) pH Units VBG pCO2 26 L (41-51) mmHg VBG pO2 78 H (25-50) mmHg VBG HCO3 11 L (21-27) mEq/L Sodium 131 L D (136-145) mEq/L Potassium 5.9 H (3.5-5.1) mEq/L Chloride 96 L (98-107) mEq/L Carbon Dioxide 11 L (23-29) mEq/L BUN 40 H (6-20) mg/dL Creatinine 1.89 H (0.70-1.30) mg/dL Est GFR ( Amer) 45 L (> 60) Est GFR (Non-Af Amer) 37 L (> 60) BUN/Creatinine Ratio 21 (6-26) Glucose 596 H* (70-105) mg/dL Calculated Osmolality 309 H (280-300) Calcium 9.9 (8.6-10.3) mg/dL Beta-Hydroxybutyric Acd > 2.00 H (0.02-0.27) mmol/L - EKG Data EKG #1 EKG attestation: Yes I reviewed and interpreted this EKG. EKG results narrative: EKG done 0 621 review myself and the attending shows sinus tachycardia rate of 117, CT interval 138, QRS 126, QTC 493. Is no acute ST changes no acute T-wave changes nor sent ischemia. There is a right bundle-branch block No signs of hypertrophy, other heart attack, heart block. No WPW/Brugada/HOCM. No old EKG to compare with
--- NOTE | 2019-01-18 06:02 | Emergency Department Note ---
Disposition Clinical Impression: Hyperkalemia DKA (diabetic ketoacidoses) Qualifiers: Diabetes mellitus type: type 1 Diabetes mellitus complication detail: without coma Qualified Code(s): E10.10 - Type 1 diabetes mellitus with ketoacidosis wit hout coma Disposition: Admitted As Inpatient Condition: Fair Time of Disposition: 06:27 General Adult HPI - General Chief complaint: ED Nausea/Vomiting/Diarrhea Stated complaint: DKA/AMA from 2N Time Seen by Provider: 01/18/19 04:19 Source: patient Limitations: no limitations - History of Present Illness Pain Scale: 6 - Related Data Home Medications Medication Instructions Recorded Confirmed Albuterol Sulfate [Proair Hfa] 2 puff IH Q4H PRN 07/15/16 09/04/17 Aspirin 325 mg PO Q72H 07/15/16 09/04/17 Atorvastatin Calcium [Lipitor] 80 mg PO HS 07/15/16 09/04/17 Carvedilol [Coreg] 6.25 mg PO BIDWM 07/15/16 09/04/17 Clopidogrel [Plavix] 75 mg PO QPM 07/15/16 09/04/17 Cyclobenzaprine HCl 20 mg PO HS 07/15/16 09/04/17 Dorzolamide/Timolol [Cosopt] 1 drop BOTH EYES BID 07/15/16 09/04/17 Escitalopram [Lexapro] 20 mg PO DAILY 07/15/16 09/04/17 Gabapentin [Neurontin] 800 mg PO TID 07/15/16 09/04/17 Glucagon,Human Recombinant 1 each IJ ONCE PRN 07/15/16 09/04/17 [Glucagon Emergency Kit] Nitroglycerin [Nitrostat] 0.4 mg SL Q5M PRN 07/15/16 09/04/17 Pantoprazole Sodium [Protonix] 40 mg PO DAILY 07/15/16 09/04/17 Subcutaneous Insulin Pump [T:Slim] 1 each MC AD 04/07/17 09/04/17 Buspirone HCl [Buspar] 5 mg PO BID 08/19/17 09/04/17 Umeclidinium Brm/Vilanterol Tr 1 each IH DAILY 08/19/17 09/04/17 [Anoro Ellipta 62.5-25 Mcg INH] Mirtazapine [Remeron] 10 mg PO HS 09/04/17 09/04/17 Previous Rx's Medication Instructions Recorded Budesonide/Formoterol 80/4.5 1 puff IH BIDR inhaler 08/20/17 [Symbicort 80/4.5] Azithromycin [Azithromycin 6-Tab 250 mg PO PER PKG DI #6 tab 11/04/17 Pack] predniSONE [Prednisone] 50 mg PO DAILY #4 tablet 11/04/17 Allergies Allergy/AdvReac Type Severity Reaction Status Date / Time codeine Allergy Hives Verified 01/18/19 04:16 pregabalin [From Lyrica] Allergy Hives Verified 01/18/19 04:16 Past Medical History - Past Medical History Medical history: Reports: non-contributory, arthritis, cardiomyopathy, CHF, COPD, coronary artery disease, CVA, diabetes, GERD, glaucoma, hyperlipidemia, hypertension, myocardial infarction, osteoporosis, peripheral artery disease, renal disease, TIA Surgical history: Reports: angioplasty/stent, appendectomy, cataract, herniorrhaphy, other Psychiatric history: Reports: anxiety, depression - Social History Smoking Status: Current every day smoker Smokeless Tobacco Status: No Alcohol use: Reports: none Drug use: Reports: none Physical Exam - General Limitations: no limitations General appearance: alert, in no apparent distress Course Vital Signs Temperature 98.6 F 01/18/19 04:13 Pulse Rate 117 01/18/19 04:13 Respiratory Rate 20 01/18/19 04:13 Blood Pressure 165/75 01/18/19 04:13 O2 Sat by Pulse Oximetry 100 01/18/19 04:13 Temperature 98.6 F 01/18/19 04:13 Pulse Rate 117 01/18/19 04:13 Respiratory Rate 20 01/18/19 04:13 Blood Pressure 165/75 01/18/19 04:13 O2 Sat by Pulse Oximetry 100 01/18/19 04:13 Oxygen Delivery Oxygen Delivery Room Air Medical Decision Making - Lab Data Result diagrams: 01/18/19 05:11 Lab Results 01/18/19 01/18/19 01/18/19 Range/Units 05:11 05:11 05:23 VBG pH 7.23 L (7.32-7.42) pH Units VBG pCO2 26 L (41-51) mmHg VBG pO2 78 H (25-50) mmHg VBG HCO3 11 L (21-27) mEq/L Sodium 131 L D (136-145) mEq/L Potassium 5.9 H (3.5-5.1) mEq/L Chloride 96 L (98-107) mEq/L Carbon Dioxide 11 L (23-29) mEq/L BUN 40 H (6-20) mg/dL Creatinine 1.89 H (0.70-1.30) mg/dL Est GFR ( Amer) 45 L (> 60) Est GFR (Non-Af Amer) 37 L (> 60) BUN/Creatinine Ratio 21 (6-26) Glucose 596 H* (70-105) mg/dL Calculated Osmolality 309 H (280-300) Calcium 9.9 (8.6-10.3) mg/dL Beta-Hydroxybutyric Acd > 2.00 H (0.02-0.27) mmol/L Attestation Statement - Attestation Attestation: I examined this patient and my medical decision-making was reviewed with the Resident Physician. I agree with the documented findings, disposition and treatment plan as described except to the extent set forth below. The patient 53-year-old gentleman with prior history of DKA that was admitted this evening for DKA. The patient was upstairs being treated and the patient wanted a drink of water. They would not allow him to drink a drink of water upstairs so the patient decided to leave the hospital AGAINST MEDICAL ADVICE. The patient presents back to the emergency department saying that he needs to have his DKA treated Physical exam patient awake alert mildly tachycardic dry mucous membranes. Patient was otherwise nonfocal exam. Medical decision management as a selector lites were obtained on the patient which of the patient still have an elevated blood sugar as well as an elevated anion gap case was discussed with the hospitalist and the patient will be readmitted back to the hospitalist service
--- NOTE | 2019-01-18 07:21 | Internal Med History&Physical ---
Date of Encounter: 01/18/19 Time of Encounter: 07:19 Internal Medicine - H&P: HPI Admitted From: Home Plans for Post Hospital Care: Home History of present illness: Mr. Stone is a 53 year old male with past medical history of COPD,1 diabetes on insulin pump, CK 80, hypertension, hyperlipidemia, CAD who was admitted yesterday for DKA and left AMA came back with not feeling well. Patient reports that he signed out AMA as they did not allow to drinking water. Apparently patient is homeless and uses insulin pump which is set by social worker palliative care. He is completely unaware of total amount of insulin he gets. Currently he is sleepy and not completed cooperative to provide full history. He left the yesterday however his ride did not calm and he continued to feel unwell and she came back. He has a lot of stressors at home. He denies any drug use. No apparent cause of DKA was identified. He denies any drug use. He mentions he is compliant with his insulin. He knows how to fill the pump that is all he knows about his insulin. Denies any fevers difficulty breathing urinary complaints or abdominal pain. Denies any chest pain or difficulty breathing. Admission was requested again for DKA management. Patient was started on insu coleen drip in the ER. He still has elevated anion gap, hyperglycemia and elevated beta hydroxybutyrate. The 6 unremarkable and EKG is unremarkable. Past Med Surg Social Fam HX - Past Medical History Medical history: non-contributory, arthritis, cardiomyopathy, CHF, COPD, coronary artery disease, diabetes, GERD, glaucoma, hyperlipidemia, hypertension, myocardial infarction, peripheral artery disease, renal disease Additional medical history: Patient positive smoker Psychiatric history: anxiety, depression - Past Surgical History Surgical History: angioplasty/stent, appendectomy, cataract, herniorrhaphy, other Additional surgical history: Eye surgery - Social History Smoking Status: Current every day smoker Smokeless Tobacco Status: No Alcohol use: none Drug use: none - Family History Father Living Status: Hx Family Cardiac Disorders: Yes Hx Family Respiratory Disorders: No Hx Family Cancer: No Hx Family GI Disorders: No Hx Family Endocrine Disorder: No Hx Family Neuromuscular Disorders: No Hx Family Neurologic Disorders: No Hx Family HEENT Disorders: No Hx Family Autoimmune Disorders: No Mother Living Status: Hx Family Cardiac Disorders: No Hx Family Respiratory Disorders: No Hx Family Cancer: Yes Hx Family GI Disorders: No Hx Family Endocrine Disorder: No Hx Family Neuromuscular Disorders: No Hx Family Neurologic Disorders: No Hx Family HEENT Disorders: No Hx Family Autoimmune Disorders: No Internal Medicine - H&P: Meds Albuterol Sulfate [Proair Hfa] 2 puff IH Q4H PRN 07/15/16 [History] Aspirin 325 mg PO Q72H 07/15/16 [History] Atorvastatin Calcium [Lipitor] 80 mg PO HS 07/15/16 [History] Carvedilol [Coreg] 6.25 mg PO BIDWM 07/15/16 [History] Clopidogrel [Plavix] 75 mg PO QPM 07/15/16 [History] Cyclobenzaprine HCl 20 mg PO HS 07/15/16 [History] Dorzolamide/Timolol [Cosopt] 1 drop BOTH EYES BID 07/15/16 [History] Escitalopram [Lexapro] 20 mg PO DAILY 07/15/16 [History] Gabapentin [Neurontin] 800 mg PO TID 07/15/16 [History] Glucagon,Human Recombinant [Glucagon Emergency Kit] 1 each IJ ONCE PRN 07/15/16 [History] Nitroglycerin [Nitrostat] 0.4 mg SL Q5M PRN 07/15/16 [History] Pantoprazole Sodium [Protonix] 40 mg PO DAILY 07/15/16 [History] Subcutaneous Insulin Pump [T:Slim] 1 each MC AD 04/07/17 [History] Buspirone HCl [Buspar] 5 mg PO BID 08/19/17 [History] Umeclidinium Brm/Vilanterol Tr [Anoro Ellipta 62.5-25 Mcg INH] 1 each IH DAILY 08/19/17 [History] Budesonide/Formoterol 80/4.5 [Symbicort 80/4.5] 1 puff IH BIDR inhaler 08/20/17 [Rx] Mirtazapine [Remeron] 10 mg PO HS 09/04/17 [History] Azithromycin [Azithromycin 6-Tab Pack] 250 mg PO PER PKG DI #6 tab 11/04/17 [Rx] predniSONE [Prednisone] 50 mg PO DAILY #4 tablet 11/04/17 [Rx] Allergy/AdvReac Type Severity Reaction Status Date / Time codeine Allergy Hives Verified 01/18/19 04:16 pregabalin [From Lyrica] Allergy Hives Verified 01/18/19 04:16 All Systems PM: A 10-system review of systems was performed and is negative for pertinent findi ngs except as documented above in the HPI. - Constitutional Vitals: Temp Pulse Resp BP Pulse Ox 98.6 F 117 20 162/70 100 01/18/19 04:13 01/18/19 04:13 01/18/19 07:09 01/18/19 07:09 01/18/19 04:13 Exam: Constitutional: Vitals as noted. Conversant. sleepy, poor hygience, thin build Eyes : Sclera white, conjunctiva clear, no lid lag, PEARLA. ENT : Grossly normal hearing. Oropharyngeal exam unremarkable. dry mucus membranes. Respiratory : Clear to auscultation bilaterally. No accessory muscle use, rales, rhonchi or wheezes Cardiovascular : tachycardic, +S1, +S2. no murmur, gallop, rubs. GI/Abdominal : Soft, Non-tender, Non-distended, no peritoneal signs. Musculoskeletal: no deformity noted. no edema, warm extremities, pulses palpable and symmetrical in UE/LE, no calf tenderness. Neurological: AO X3, CN II-XII grossly intact, grossly normal motor and sensory exam. Skin: Many skin lesion on UE somewhat like skin tract perez. Pych: sleepy and irritable Internal Med - H&P Results - Labs CBC & Chem 7: 01/18/19 05:11 Labs: BMP 01/18/19 05:11 Sodium 131 L D Potassium 5.9 H Chloride 96 L Carbon Dioxide 11 L BUN 40 H Creatinine 1.89 H Glucose 596 H* Calcium 9.9 - ABG Interpretation Interpretation: ABG interpreted by me ABG results: 01/18/19 05:23 VBG pH 7.23 L VBG pCO2 26 L VBG pO2 78 H VBG HCO3 11 L Interpretation: metabolic acidosis - EKG Data -: EKG Interpreted by Myself EKG shows normal: sinus rhythm Rate: tachycardia - Assessment and Plan (1) DKA (diabetic ketoacidoses) Current Visit: Yes Status: Acute Assessment and plan: We will keep patient on insulin drip per DKA protocol. We will supplement potassium if he continues to be in DKA needing insulin drip and potassium below 5. Monitor BMP every 4 hours for an Anionic gap. We will switch to subcutaneous insulin gap closes. Unclear cause of his DKA. Drug use possibility given some track perez and previous utox in 2016 showed use of cocaine and marijuana. We will obtain urine toxicology Does not appear to have any infectious source. Leukocytosis likely reactive. Patient also not completely unaware of his insulin pump, many insulin units he needs daily. Maybe also contributory. We will get diabetes education. Qualifiers: Diabetes mellitus type: type 1 Diabetes mellitus complication detail: without coma Qualified Code(s): E10.10 - Type 1 diabetes mellitus with ketoacidosis without coma (2) Hyperkalemia Current Visit: Yes Status: Acute Assessment and plan: Likely due to DKA. Management as above. (3) DVT prophylaxis Current Visit: No Status: Acute Assessment and plan: Keep on heparin subcutaneous (4) CAD (coronary artery disease) Current Visit: No Status: Chronic Assessment and plan: Continue home medications once confirmed. Qualifiers: Coronary Disease-Associated Artery/Lesion type: [place] artery [place] vs. transplanted heart: [place] heart Associated angina: without angina Qualified Code(s): I25.10 - Atherosclerotic heart disease of [place] coronary artery without angina pectoris (5) COPD (chronic obstructive pulmonary disease) Current Visit: No Status: Chronic Assessment and plan: Not in COPD exacerbation. Continue inhalers once confirmed. Qualifiers: COPD type: COPD with acute exacerbation Qualified Code(s): J44.1 - Chronic obstructive pulmonary disease with (acute) exacerbation (6) Chronic kidney disease, stage III (moderate) Current Visit: No Status: Chronic Assessment and plan: Currently appears to be stable Is slightly hypovolemic. IV fluids with the DKA protocol. (7) Tobacco abuse Current Visit: No Status: Chronic - Time Spent With Patient Total time spent is greater than 50% in coordination of care (as documented) at patient's floor/unit and/or counseling patient:
[2019-01-18] MEDS ORDERED: D5% in 0.45% NACL w KCl 20 MEQ/1,000 ML MLS IVC PRN (07:43)
[2019-01-18] MEDS ORDERED: D5% in 0.45% NACL 1,000 ML IVC PRN (07:43)
[2019-01-18] MEDS ORDERED: 0.9 % Sodium Chloride 1,000 ML ONE (08:30)
[2019-01-18] MEDS: 0.9 % Sodium Chloride 1,000 ML IVC SCH ×3 (08:40→16:40)
[2019-01-18] MEDS ORDERED: Aspirin Enteric Coated 81 MG Tablet PO SCH (09:00)
[2019-01-18] MEDS ORDERED: Pantoprazole 40 MG VIAL IVP SCH (09:00)
[2019-01-18 09:36] LABS: Potassium 5.9 mEq/L (3.5-5.1)
[2019-01-18] MEDS: Budesonide/Formoterol 80/4.5 MDI IH SCH ×2 (09:38→20:38)
[2019-01-18 13:43] LABS: Calcium 8.9 mg/dL (8.6-10.3); Potassium 4.2 mEq/L (3.5-5.1)
[2019-01-18] MEDS: *HR* Heparin 5,000 UNIT/ML VIAL SQ SCH ×2 (15:20→20:45)
--- NOTE | 2019-01-18 16:44 | Electrocardiograph Report ---
[address] [address] Test Date: 2019-01-18 Pat Name: Cali Stone Department: EXAM1 Room: 2N15 Gender: Processing Associate: : 1965 Requested By: Dk Francois Order Number: [id number] Reading MD: Lila Osborn Measurements Intervals [place] Rate: 117 P: 86 AK: 138 QRS: 86 QRSD: 126 T: 71 QT: 353 QTc: 493 Interpretive Statements Sinus tachycardia Nonspecific intraventricular conduction delay Electronically Signed On 01-18-2019 16:42:21 EDT by Lila Osborn
[2019-01-18 17:23] LABS: Potassium 4.9 mEq/L (3.5-5.1)
[2019-01-18] MEDS ORDERED: Insulin DETEMIR 100 UNIT/ML X5UNITS SQ SCH (18:34)
[2019-01-18 19:29] VITALS: BP 128/75
[2019-01-18] MEDS ORDERED: Insulin LISPRO 300 UNITS/3 ML VIAL SQ SCH (21:00)
[2019-01-18 21:30] LABS: Calcium 8.4 mg/dL (8.6-10.3); Potassium 5.6 mEq/L (3.5-5.1)
[2019-01-19] MEDS ORDERED: Insulin LISPRO 300 UNITS/3 ML VIAL SQ SCH (07:30)
== END 2019-01-18 23:05 | disposition left against medical advice (07) | DRG 638 ==
LOC: EMEROOARM 03:58 → ICNU 03:58 → 2NNU 15:51
PROVIDERS: ADMIT Family Medicine; ATTEND Family Medicine

== ENCOUNTER 2019-03-01 11:56 | Observation (INO) ==
[2019-03-01] MEDS: 0.9 % Sodium Chloride 1,000 ML IVC SCH ×2 (13:00→15:35)
[2019-03-01 13:25] LABS: Basophils % 0.3 %; Eosinophils # 0.3 K/mcL (0.0-0.6); Eosinophils % 2.9 %; Hematocrit 36.5 % (37.5-50.1); Hemoglobin 12.6 g/dL (12.9-16.9); Immature Granulocytes % 0.3 % (0-4); Lymphocytes # 1.4 K/mcL (0.6-4.6); Lymphocytes % 13.4 %; Mean Corpuscular HGB Conc 34.5 g/dL (31.6-35.5); Mean Corpuscular Hemoglobin 30.3 pg (28.0-33.3); Mean Corpuscular Volume 87.7 fL (83.0-100.0); Mean Platelet Volume 10.4 fL (9.4-12.4); Monocytes # 0.5 K/mcL (0.0-1.3); Neutrophils # 7.9 K/mcL (1.6-8.9); Platelet Count 238 K/mcL (140-400); Red Blood Count 4.16 M/mcL (4.19-5.50); Red Cell Distribution Width 12.8 % (11.5-14.5); Segmented Neutrophils % 78.1 %; White Blood Count 10.2 K/mcL (4.3-11.1)
[2019-03-01] MEDS ORDERED: Metoclopramide 10 MG/2 ML VIAL IVP ONE (13:25)
[2019-03-01 13:28] LABS: VBG HCO3 26 mEq/L (21-27); VBG PCO2 52 mmHg (41-51); VBG PH 7.31 pH Units (7.32-7.42); VBG PO2 56 mmHg (25-50)
[2019-03-01 13:52] LABS: Alanine Aminotransferase 18 Units/L (7-52); Albumin 4.6 g/dL (3.5-5.7); Albumin/Globulin Ratio 1.5 (1.1-2.2); Alkaline Phosphatase 112 Units/L (34-104); Aspartate Amino Transferase 18 Units/L (13-39); BUN/Creatinine Ratio 19 (6-26); Bilirubin,Total 0.6 mg/dL (0.3-1.0); Blood Urea Nitrogen 27 mg/dL (6-20); Calcium 10.1 mg/dL (8.6-10.3); Carbon Dioxide 24 mEq/L (23-29); Chloride 94 mEq/L (98-107); Glucose 317 mg/dL (70-105); Lipase 55 Units/L (11-82); Magnesium 1.6 mg/dL (1.6-2.6); Osmolality,Calculated 289 (280-300); Potassium 4.8 mEq/L (3.5-5.1); Sodium 131 mEq/L (136-145); Total Protein 7.6 g/dL (6.4-8.9); Troponin I < 0.03 ng/mL (< 0.04); eGFR For African Americans > 60 (> 60); eGFR For Non-African Americans 52 (> 60)
[2019-03-01] MEDS ORDERED: *HR* Dextrose 50 % in Water (Syg) 50 ML SYRINGE IVP PRN ×2 (14:39→16:42)
--- NOTE | 2019-03-01 14:43 | Emergency Department Note ---
Disposition Clinical Impression: DKA (diabetic ketoacidoses) Qualifiers: Diabetes mellitus type: type 1 Diabetes mellitus complication detail: without coma Qualified Code(s): E10.10 - Type 1 diabetes mellitus with ketoacidosis without coma Disposition: Admitted As Inpatient Condition: Fair Referrals: Steffen Cobb DO [Primary Care Provider] - Forms: ED Satisfaction Letter, Work/School Release Time of Disposition: 14:51 Nausea/Vomiting/Diarrhea HPI - General Chief complaint: ED Abdominal Pain Stated complaint: HYPERGLYCEMIA Time Seen by Provider: 03/01/19 12:18 Source: patient, EMS Mode of arrival: EMS Limitations: no limitations Nursing Notes Reviewed: Yes Vital Signs Reviewed: Yes - History of Present Illness Pt Subjective Complaint: nausea, vomiting Onset (ago): day(s) (5) Description of emesis: food contents, watery Number of episodes of emesis: 100 Associated Abdominal Pain: Yes ("Sore from vomiting") If pain, Location of pain: diffuse Severity: mild, now resolved Quality: other ("Sore") Consistency: intermittent Improves with: rest Worsens with: vomiting, movement Context: other (Hx of DKA; blood sugar hard to control past few days) Associated symptoms: Denies: chest pain, cough, diaphoresis, fever/chills, headaches, loss of appetite, malaise, nausea/vomiting, rash, dysuria, shortness of breath, syncope, weakness - Related Data Home Medications Medication Instructions Recorded Confirmed Atorvastatin Calcium [Lipitor] 80 mg PO HS 07/15/16 03/01/19 Carvedilol [Coreg] 6.25 mg PO BID 07/15/16 03/01/19 Clopidogrel [Plavix] 75 mg PO DAILY 07/15/16 03/01/19 Cyclobenzaprine HCl 10 mg PO TID PRN 07/15/16 03/01/19 Dorzolamide/Timolol [Cosopt] 1 drop BOTH EYES BID 07/15/16 03/01/19 Escitalopram [Lexapro] 20 mg PO DAILY 07/15/16 03/01/19 Gabapentin [Neurontin] 800 mg PO TID 07/15/16 03/01/19 Glucagon,Human Recombinant 1 each IJ ONCE PRN 07/15/16 03/01/19 [Glucagon Emergency Kit] Nitroglycerin [Nitrostat] 0.4 mg SL Q5M PRN 07/15/16 03/01/19 Pantoprazole Sodium [Protonix] 40 mg PO DAILY 07/15/16 03/01/19 Buspirone HCl [Buspar] 5 mg PO BID PRN 08/19/17 03/01/19 Umeclidinium Brm/Vilanterol Tr 1 puff IH DAILY 08/19/17 03/01/19 [Anoro Ellipta 62.5-25 Mcg INH] Aspirin [Adult Aspirin Regimen] 81 mg PO DAILY 01/18/19 03/01/19 Insulin ASPART [NovoLOG] 40 unit SQ DAILY 01/18/19 03/01/19 Allergies Allergy/AdvReac Type Severity Reaction Status Date / Time codeine Allergy Hives Verified 01/18/19 20:18 pregabalin [From Lyrica] Allergy Hives Verified 01/18/19 20:18 All systems ED: reviewed and negative except as stated. Review of Systems: As Per HPI Constitutional: Denies: fever, chills, weakness Eyes: Denies: eye pain, eye discharge, vision change ENT ED: Denies: ear pain, throat pain, congestion, dysphagia Cardiovascular: Denies: chest pain, palpitations, dyspnea on exertion, orthopnea, edema, syncope Respiratory: Denies: cough, dyspnea, wheezes, hemoptysis, stridor Gastrointestinal: Reports: as per HPI, abdominal pain, nausea, vomiting. Denies: diarrhea Genitourinary: Denies: urgency, dysuria, frequency, hematuria Musculoskeletal: Denies: back pain, neck pain, joint swelling, arthralgia Integumentary: Denies: rash, lesions Neurological: Denies: headache, weakness, confusion, vertigo Hematological/Lymphatic: Denies: easy bleeding, easy bruising, lymphadenopathy Past Medical History - Past Medical History Attestation: Yes The following information was validated with the patient. Source: patient Medical history: Reports: arthritis, cardiomyopathy, CHF, COPD, coronary artery disease, diabetes, GERD, glaucoma, hyperlipidemia, hypertension, myocardial infarction, peripheral artery disease, renal disease Surgical history: Reports: angioplasty/stent, appendectomy, cataract, herniorrhaphy, other Psychiatric history: Reports: anxiety, depression - Social History Smoking Status: Current every day smoker Smokeless Tobacco Status: No Alcohol use: Reports: none Drug use: Reports: none Physical Exam - General Limitations: no limitations General appearance: alert, in no apparent distress - Head Head exam: atraumatic, normocephalic, normal inspection - Eye Eye exam: Present: normal appearance, PERRL. Absent: scleral icterus, c onjunctival injection, miosis, mydriasis, periorbital swelling, periorbital tenderness - ENT ENT exam: mucous membranes dry - Neck Neck exam: Present: normal inspection, full ROM, trachea midline. Absent: meningismus - Respiratory Respiratory exam: Present: normal lung sounds bilaterally. Absent: respiratory distress, wheezes, stridor, accessory muscle use, prolonged expiratory phase - Cardiovascular Cardiovascular exam: Present: regular rate, normal rhythm - Abdominal Exam Abdominal exam: Present: soft, Non-Tender, normal bowel sounds. Absent: distention, guarding, rebound, rigidity, organomegaly, trauma, Cuevas's sign, ascites, mass, pulsatile mass - Extremities Exam Extremities exam: Present: normal inspection, full ROM, normal capillary refill. Absent: pedal edema, joint swelling, calf tenderness - Back Exam Back exam: Present: normal inspection - Neurological Exam Neurological exam: Present: alert, oriented X3, CN II-XII intact, normal gait - Psychiatric Psychiatric exam: Present: depressed, flat affect - Skin Skin exam: Present: warm, dry, intact, normal color Course Course Narrative: Patient with Hx of IDDM presents from home by squad for eval of "High blood sugar" x 4-5 days for unKnown reason. He denies trouble breathing shortness of breath, cough, dyspnea on exertion, sputum production, chest pain, dizziness, vertigo, syncope. On exam he appears uncomfortable but nontoxic. He is reclining on the bed, speaks in complete sentences. - Consultations Consultation #1: Case discussed with Dr. Jarvis. She requests an ABG, but states that she will accept the patient. Time: 15:10 Vital Signs Temperature 96.1 F L 03/01/19 12:00 Pulse Rate 96 03/01/19 12:00 Respiratory Rate 20 03/01/19 12:00 Blood Pressure 169/94 03/01/19 12:00 O2 Sat by Pulse Oximetry 100 03/01/19 12:00 Temperature 96.1 F L 03/01/19 12:00 Pulse Rate 100 03/01/19 13:31 Respiratory Rate 22 03/01/19 13:31 Blood Pressure 177/96 03/01/19 13:31 O2 Sat by Pulse Oximetry 100 03/01/19 13:31 Oxygen Delivery Oxygen Delivery Room Air Nausea/Vomiting/Diarrhea - Lab Data Result diagrams: 03/01/19 13:09 03/01/19 13:09 Lab Results 03/01/19 03/01/19 03/01/19 Range/Units 13:09 13:09 13:09 WBC 10.2 (4.3-11.1) K/mcL RBC 4.16 L (4.19-5.50) M/mcL Hgb 12.6 L (12.9-16.9) g/dL Hct 36.5 L (37.5-50.1) % MCV 87.7 (83.0-100.0) fL MCH 30.3 (28.0-33.3) pg MCHC 34.5 (31.6-35.5) g/dL RDW 12.8 (11.5-14.5) % Plt Count 238 (140-400) K/mcL MPV 10.4 (9.4-12.4) fL Immature Gran % 0.3 (0-4) % Seg Neutrophils % 78.1 % Lymphocytes % 13.4 % Monocytes % 5.0 % Eosinophils % 2.9 % Basophils % 0.3 % Neutrophils # 7.9 (1.6-8.9) K/mcL Lymphocytes # 1.4 (0.6-4.6) K/mcL Monocytes # 0.5 (0.0-1.3) K/mcL Eosinophils # 0.3 (0.0-0.6) K/mcL Basophils # 0.0 (0.0-0.2) K/mcL VBG pH (7.32-7.42) pH Units VBG pCO2 (41-51) mmHg VBG pO2 (25-50) mmHg VBG HCO3 (21-27) mEq/L Sodium 131 L (136-145) mEq/L Potassium 4.8 (3.5-5.1) mEq/L Chloride 94 L (98-107) mEq/L Carbon Dioxide 24 (23-29) mEq/L BUN 27 H (6-20) mg/dL Creatinine 1.40 H (0.70-1.30) mg/dL Est GFR ( Amer) > 60 (> 60) Est GFR (Non-Af Amer) 52 L (> 60) BUN/Creatinine Ratio 19 (6-26) Glucose 317 H (70-105) mg/dL Calculated Osmolality 289 (280-300) Calcium 10.1 (8.6-10.3) mg/dL Magnesium 1.6 (1.6-2.6) mg/dL Total Bilirubin 0.6 (0.3-1.0) mg/dL AST 18 (13-39) Units/L ALT 18 (7-52) Units/L Alkaline Phosphatase 112 H (34-104) Units/L Troponin I < 0.03 (< 0.04) ng/mL Serum Total Protein 7.6 (6.4-8.9) g/dL Albumin 4.6 (3.5-5.7) g/dL Globulin 3.0 (2.4-3.5) g/dL Albumin/Globulin Ratio 1.5 (1.1-2.2) Lipase 55 (11-82) Units/L Beta-Hydroxybutyric Acd 1.29 H (0.02-0.27) mmol/L 03/01/19 Range/Units 13:25 WBC (4.3-11.1) K/mcL RBC (4.19-5.50) M/mcL Hgb (12.9-16.9) g/dL Hct (37.5-50.1) % MCV (83.0-100.0) fL MCH (28.0-33.3) pg MCHC (31.6-35.5) g/dL RDW (11.5-14.5) % Plt Count (140-400) K/mcL MPV (9.4-12.4) fL Immature Gran % (0-4) % Seg Neutrophils % % Lymphocytes % % Monocytes % % Eosinophils % % Basophils % % Neutrophils # (1.6-8.9) K/mcL Lymphocytes # (0.6-4.6) K/mcL Monocytes # (0.0-1.3) K/mcL Eosinophils # (0.0-0.6) K/mcL Basophils # (0.0-0.2) K/mcL VBG pH 7.31 L (7.32-7.42) pH Units VBG pCO2 52 H (41-51) mmHg VBG pO2 56 H (25-50) mmHg VBG HCO3 26 (21-27) mEq/L Sodium (136-145) mEq/L Potassium (3.5-5.1) mEq/L Chloride (98-107) mEq/L Carbon Dioxide (23-29) mEq/L BUN (6-20) mg/dL Creatinine (0.70-1.30) mg/dL Est GFR ( Amer) (> 60) Est GFR (Non-Af Amer) (> 60) BUN/Creatinine Ratio (6-26) Glucose (70-105) mg/dL Calculated Osmolality (280-300) Calcium (8.6-10.3) mg/dL Magnesium (1.6-2.6) mg/dL Total Bilirubin (0.3-1.0) mg/dL AST (13-39) Units/L ALT (7-52) Units/L Alkaline Phosphatase (34-104) Units/L Troponin I (< 0.04) ng/mL Serum Total Protein (6.4-8.9) g/dL Albumin (3.5-5.7) g/dL Globulin (2.4-3.5) g/dL Albumin/Globulin Ratio (1.1-2.2) Lipase (11-82) Units/L Beta-Hydroxybutyric Acd (0.02-0.27) mmol/L
[2019-03-01] MEDS ORDERED: Insulin Human Regular 100 UNIT in 0.9 % Sodium Chloride 100 ML IVC SCH ×2 (14:45→20:30)
[2019-03-01 15:49] LABS: ABG Base Excess -4 mEq/L (-2 to 3); ABG HCO3 20 mEq/L (21-27); ABG Oxygen Saturation 95 % (95-98); ABG PCO2 34 mmHg (35-45); ABG PH 7.38 pH Units (7.32-7.45); ABG PO2 78 mmHg (85-104); ABG TCO2 21 mEq/L (20-26)
--- NOTE | 2019-03-01 16:37 | Event Note ---
Date of Encounter: 03/01/19 Time of Encounter: 17:00 to serve as attending attestation pending completion of resident H&P I examined this patient and my medical decision-making was reviewed with the Resident Physician Dr Brenner. I agree with the documented findings, disposition and treatment plan as described except to the extent set forth below. Mr Stone is being observed for hyperglycemia awake, still nauseated, not vomiting, only pain is epigastric pain that he gets with vomiting. denies fevers or chills, discussed cxr and he hasn't had significant coughing, wheezing or sputum production. insulin pump is off. gen- alert, awake,appears stated age cv- reg rate and rhythm, normal s1,s2, no murmurs appreciated lungs- ctabl, no wheezing, rhonchi or crackles, normal resp effort on room air abd- soft, non tender, non distended, + bs neuro- AAOx3 Hyperglycemia, mixed picture DKA vs HHS Diabetes Mellitus Presenting bs in 300s, serum osm 289, but bicarb 24 and ph 7.38. BHB 1.29 and urine not sent to assess for ketones in ED Suspect given chart review on pt multiple admits and leaving AMAs and prior comments he doesn't know how ot use pump, that elevated bl sugars come more from med compliance/education issues; do not suspect CXR findings are an infectious cause to hyperglycemia as he is denying any sxs and has no wbc elevation - DKA protocol initiated, insulin gtt, cautious use of fluids given he received 2L boluses in ED and has HFrEF with EF 35% -serial bmps Possible bronchitis vs early pna on CXR without sxs or wbc elevation- monitor for now HTN, uncontrolled- cont home coreg, prn IV anti hypertensive HRrEF, last echo 09/2007 w EF 35 % and mild DD- strict i/os, daily weights, cont BB, not on acei/arb given CKD CKD stage uk- creat appears at recent baseline chronic baseline anemia further dx and plan as noted by resident
[2019-03-01] MEDS ORDERED: Ondansetron ODT 4 MG TAB.RAPDIS SL STA (16:39)
[2019-03-01] MEDS ORDERED: D5% in 0.45% NACL w KCl 20 MEQ/1,000 ML MLS IVC PRN (16:42)
[2019-03-01] MEDS ORDERED: Insulin Regular, Human 100 UNIT/ML IV PRN (16:42)
[2019-03-01] MEDS ORDERED: D5% in 0.45% NACL 1,000 ML IVC PRN (16:42)
[2019-03-01] MEDS ORDERED: Acetaminophen 325 MG TABLET PO PRN (16:50)
[2019-03-01] MEDS ORDERED: Ondansetron 4 MG/2 ML VIAL IVP PRN (16:50)
[2019-03-01] MEDS ORDERED: Naloxone 0.4 MG/ML INJ IVP PRN (16:50)
--- NOTE | 2019-03-01 16:58 | Internal Med History&Physical ---
<Pedro Brenner S - Last Filed: 03/01/19 19:33> Date of Encounter: 03/01/19 Time of Encounter: 16:53 Internal Medicine - H&P: HPI Chief complaint: Abdominal Pain, Nausea, Vomiting Admitted From: Home History of present illness: Mr. Stone is a 54 year old male with past history significant for DM type 1, poorly controlled, who presented to the ED today with nausea, vomiting, and abdominal pain since last night. he was found to have elevated blood glucose, elevated beta-hydroxybutyrate, and acidemia on VBG; therefore patient is being admitted for Hyperglycemia vs DKA vs HHS. Of note, he has h/o multiple admits for the same, failure to understand use of his insulin pump, multiple episodes of leaving AGAINST MEDICAL ADVICE. Other pertinent past medical history includes CHF with an ejection fraction of 35% on echocardiogram performed 09/20, HTN, COPD, and CAD s/p stenting. Pt reports that his current episode of nausea, vomiting and abdominal pain began last night. He reports numerous episodes of vomiting, is unable to given estimate of how frequently they are occurring. He reports that he usually waits for 4 or 5 days before coming into the hospital for DKA/HHS, but this time had epigastric abdominal pain that was rated 10 out of 10, described as "hot poker through my gut," does not radiate, is worse with vomiting, and has not been relieved by anything. Patient denies any hematuria, coffee-ground emesis, black stool, bloody stool ,diarrhe, constipation, worsening cough, shortness of breath, chest pain, blurry vision, double vision, headache. Denies new or worsening weakness, numbness, or tinglingin the extremities However, reports he has these at baseline. Denies any lower extremity edema. His last meal was last night before the episode started. He reports taking only Novolog by insulin pump, but states "I don't know how to work that thing." He has not been able to take any of his CHF, COPD or blood pressure medicines since this episode of nausea and vomiting started last night. Social history is significant for a 43 year history of smoking one pack of cigarettes per day, review of prior medical records shows he has been homeless in the past and living in a van, however, his current housing status was not assessed at this time. We will assess tomorrow. Past Med Surg Social Fam HX - Past Medical History Medical history: arthritis, cardiomyopathy, CHF, COPD, coronary artery disease, diabetes, GERD, glaucoma, hyperlipidemia, hypertension, myocardial infarction, peripheral artery disease, renal disease Additional medical history: Patient positive smoker Psychiatric history: anxiety, depression - Past Surgical History Surgical History: angioplasty/stent, appendectomy, cataract, herniorrhaphy, other Additional surgical history: Eye surgery - Social History Smoking Status: Current every day smoker Smokeless Tobacco Status: No Alcohol use: none Drug use: none - Family History Father Living Status: Hx Family Cardiac Disorders: Yes Hx Family Respiratory Disorders: No Hx Family Cancer: No Hx Family GI Disorders: No Hx Family Endocrine Disorder: No Hx Family Neuromuscular Disorders: No Hx Family Neurologic Disorders: No Hx Family HEENT Disorders: No Hx Family Autoimmune Disorders: No Mother Living Status: Hx Family Cardiac Disorders: No Hx Family Respiratory Disorders: No Hx Family Cancer: Yes Hx Family GI Disorders: No Hx Family Endocrine Disorder: No Hx Family Neuromuscular Disorders: No Hx Family Neurologic Disorders: No Hx Family HEENT Disorders: No Hx Family Autoimmune Disorders: No Internal Medicine - H&P: Meds Atorvastatin Calcium [Lipitor] 80 mg PO HS 07/15/16 [History] Carvedilol [Coreg] 6.25 mg PO BID 07/15/16 [History] Clopidogrel [Plavix] 75 mg PO DAILY 07/15/16 [History] Cyclobenzaprine HCl 10 mg PO TID PRN 07/15/16 [History] Dorzolamide/Timolol [Cosopt] 1 drop BOTH EYES BID 07/15/16 [History] Escitalopram [Lexapro] 20 mg PO DAILY 07/15/16 [History] Gabapentin [Neurontin] 800 mg PO TID 07/15/16 [History] Glucagon,Human Recombinant [Glucagon Emergency Kit] 1 each IJ ONCE PRN 07/15/16 [History] Nitroglycerin [Nitrostat] 0.4 mg SL Q5M PRN 07/15/16 [History] Pantoprazole Sodium [Protonix] 40 mg PO DAILY 07/15/16 [History] Buspirone HCl [Buspar] 5 mg PO BID PRN 08/19/17 [History] Umeclidinium Brm/Vilanterol Tr [Anoro Ellipta 62.5-25 Mcg INH] 1 puff IH DAILY 08/19/17 [History] Aspirin [Adult Aspirin Regimen] 81 mg PO DAILY 01/18/19 [History] Insulin ASPART [NovoLOG] 40 unit SQ DAILY 01/18/19 [History] Allergy/AdvReac Type Severity Reaction Status Date / Time codeine Allergy Hives Verified 01/18/19 20:18 pregabalin [From Lyrica] Allergy Hives Verified 01/18/19 20:18 All Systems PM: A 10-system review of systems was performed and is negative for pertinent findings except as documented above in the HPI. - Constitutional Constitutional: no chills, no fever(s) - EENT Eyes: no blurry vision, no diplopia - Cardiovascular Cardiovascular ROS IM: no chest pain, no dyspnea, no palpitations - Respiratory Respiratory: no cough, no dyspnea, no hemoptysis, no wheezing - Gastrointestinal Gastrointestinal: as per HPI, abdominal pain, nausea, vomiting, no constipation, no diarrhea, no hematemesis, no hematochezia, no melena - Genitourinary Genitourinary ROS male: no difficulty urinating - Integumentary Integumentary IM: new lesions (Accidental burn wound on the medial aspect of the left heel, patient states that he was cutting a bolt with an angle horseradish grinder and cut off piece fell into his shoe.), no rash - Neurological Neurological ROS: no confusion, no loss of vision, no weakness - Constitutional Vitals: Temp Pulse Resp BP Pulse Ox 97.7 F 107 20 189/103 98 03/01/19 16:07 03/01/19 16:07 03/01/19 16:07 03/01/19 16:07 03/01/19 16:07 General appearance: Present: disheveled, mild distress, A&O X 3, underweight, answers questions appropriately Exam: see below for remainder of physical exam - Head Head exam: Present: atraumatic, normocephalic - Eye Eye exam: Present: EOMI, normal appearance, conjuntiva pink - ENT ENT exam: Present: mucous membranes dry - Neck Neck exam general surgery: Present: full ROM, trachea midline - Respiratory Respiratory exam: Present: decreased breath sounds (Throughout). Absent: respiratory distress, stridor, wheezes, tachypnea - Cardiovascular Cardiovascular exam: Present: +S1, +S2. Absent: diastolic murmur, systolic murmur - GI/Abdominal GI/Abdominal exam: Present: hypoactive bowel sounds, tenderness ( Significant tenderness to palpation of the proximal rectus abdominis muscle, immediately adjacent is nontender to palpation, palpation of the distal rectus abdominis invokes pain along its length, left lower quadrant and right lower quadrant nontender palpation), no peritoneal signs - Extremities Exam Extremities exam: Present: warm. Absent: joint swelling, pedal edema - Back Exam Back exam: Absent: CVA tenderness (L), CVA tenderness (R), muscle spasm - Neurological Exam Neurological exam: Present: alert, oriented X3, no focal deficits. Absent: altered - Skin Skin exam: Present: intact, warm. Absent: rash Additional comments: Significantly poor hygiene makes skin examination difficult Internal Med - H&P Results - Labs CBC & Chem 7: 03/01/19 13:09 03/01/19 17:22 Labs: Short CBC 03/01/19 Range/Units 13:09 WBC 10.2 (4.3-11.1) K/mcL Hgb 12.6 L (12.9-16.9) g/dL Hct 36.5 L (37.5-50.1) % Plt Count 238 (140-400) K/mcL Neutrophils # 7.9 (1.6-8.9) K/mcL BMP 03/01/19 13:09 Sodium 131 L Potassium 4.8 Chloride 94 L Carbon Dioxide 24 BUN 27 H Creatinine 1.40 H Glucose 317 H Calcium 10.1 Cardiac Enzymes 03/01/19 Range/Units 13:09 Troponin I < 0.03 (< 0.04) ng/mL Liver Function 03/01/19 Range/Units 13:09 Total Bilirubin 0.6 (0.3-1.0) mg/dL AST 18 (13-39) Units/L ALT 18 (7-52) Units/L Alkaline Phosphatase 112 H (34-104) Units/L Albumin 4.6 (3.5-5.7) g/dL - ABG Interpretation ABG results: 03/01/19 03/01/19 13:25 15:46 ABG pH 7.38 ABG pCO2 34 L ABG pO2 78 L ABG HCO3 20 L ABG Total CO2 21 ABG O2 Saturation 95 ABG Base Excess -4 L VBG pH 7.31 L VBG pCO2 52 H VBG pO2 56 H VBG HCO3 26 - Impressions ITS Impressions Chest X-Ray 03/01/19 12:41 IMPRESSION: Increased lung markings at the right suprahilar region, may be related to bronchitis versus early pneumonia. D/ / Kole Salas MD / Kole Salas MD Interpreting Provider: Kole Salas MD - Assessment and Plan (1) CHF (congestive heart failure) Current Visit: Yes Status: Chronic Assessment and plan: Not currently showing signs of fluid overload, patient seemed unaware of his diagnosis of heart failure Given that he is getting fluid resuscitation for DKA versus hyperglycemia, we will monitor strict I's and O's and get daily weights. Continue beta blockers Qualifiers: Heart failure type: unspecified Heart failure chronicity: chronic Qualified Code(s): I50.9 - Heart failure, unspecified (2) H/O noncompliance with medical treatment, presenting hazards to health Current Visit: Yes Status: Acute Assessment and plan: In discussion between myself, Dr. Greene, and Dr. Marie, weak knowledge the possibility of the patient decided to leave [facility], as he has a significant history of doing this. In light of this, we will focus our care plan on improv ing his clinical picture as quickly as is safely possible, and may discuss measures to attempt to increase patient's compliance with the hospitalist team tomorrow (3) Nicotine dependence with nicotine-induced disorder Current Visit: No Status: Chronic Assessment and plan: We will provide a nicotine patches when necessary Qualifiers: Nicotine product type: cigarettes Qualified Code(s): F17.219 - Nicotine dependence, cigarettes, with unspecified nicotine-induced disorders (4) HTN (hypertension) Current Visit: Yes Status: Chronic Assessment and plan: Blood pressure elevated in the ED and Qualifiers: Hypertension type: essential hypertension Qualified Code(s): I10 - Essential (primary) hypertension (5) Abdominal pain Current Visit: Yes Status: Resolved Assessment and plan: Tylenol ordered for pain control Qualifiers: Abdominal location: generalized Qualified Code(s): R10.84 - Generalized abdominal pain (6) DVT prophylaxis Current Visit: No Status: Acute Assessment and plan: SCD's (7) Hyperglycemia Current Visit: No Status: Chronic Assessment and plan: 54-year-old male admitted for hyperglycemia with possible mild DKA Patient has extensive history of multiple admits for the same Abdominal pain present on this admission does not fit a clinical picture for pancreatitis, cholecystitis, gastric ulcer, ruptured AAA, ACS equivalent. Laboratory and imaging investigations further confirm this. Patient is receiving half normal saline with 20 mEq of Potassium chloride at a rate of 500 mils an hour per protocol for elevated blood sugar and potassium between 3.3 and 3.5. Protocols ordered to adjust as needed to bring down his blood sugars, maintain adequate potassium levels, close his anion gap, and replenish lost fluids. Significant nausea and vomiting being treated with Zofran 4 mg every 8h when necessary At this time, we are awaiting the results of urinalysis, looking for ketones and an EKG to r/o cardiac source of his epigastric pain. Of note, patient was not placed in the ICU because he is requiring an elevated level of care, his placement was due to lack of available beds on general medical floor - Summary of Assessment and Plan Summary of Assessment and Plan: DKA protocols Monitor for s/s fluid overload Try to convince him to stay for duration of treatment tylenol for pain control zofran for nausea/vomiting - Time Spent With Patient Total time spent is greater than 50% in coordination of care (as documented) at patient's floor/unit and/or counseling patient: <Ashley Alexandre - Last Filed: 03/01/19 21:00> Date of Encounter: 03/01/19 Internal Medicine - H&P: HPI History of present illness: Mr. Stone is a 54 year old male All Systems PM: A 10-system review of systems was performed and is negative for pertinent find ings except as documented above in the HPI. - Constitutional Vitals: Temp Pulse Resp BP Pulse Ox 98.2 F 98 17 158/94 98 03/01/19 20:28 03/01/19 18:53 03/01/19 18:53 03/01/19 18:53 03/01/19 18:53 Internal Med - H&P Results - Labs CBC & Chem 7: 03/01/19 13:09 03/01/19 17:22 Labs: Short CBC 03/01/19 Range/Units 13:09 WBC 10.2 (4.3-11.1) K/mcL Hgb 12.6 L (12.9-16.9) g/dL Hct 36.5 L (37.5-50.1) % Plt Count 238 (140-400) K/mcL Neutrophils # 7.9 (1.6-8.9) K/mcL BMP 03/01/19 03/01/19 13:09 17:22 Sodium 131 L 129 L Potassium 4.8 4.0 Chloride 94 L 103 Carbon Dioxide 24 23 BUN 27 H 21 H Creatinine 1.40 H 1.25 Glucose 317 H 253 H Calcium 10.1 9.6 Cardiac Enzymes 03/01/19 Range/Units 13:09 Troponin I < 0.03 (< 0.04) ng/mL Liver Function 03/01/19 Range/Units 13:09 Total Bilirubin 0.6 (0.3-1.0) mg/dL AST 18 (13-39) Units/L ALT 18 (7-52) Units/L Alkaline Phosphatase 112 H (34-104) Units/L Albumin 4.6 (3.5-5.7) g/dL Urine 03/01/19 Range/Units 19:00 Urine Color Yellow (Yellow) Urine Clarity Clear (Clear) Urine pH 7.5 (5.0-8.0) pH Units Ur Specific [place] 1.020 (1.010-1.025) Urine Protein 30 H (Neg-Trace) mg/dL Urine Glucose (UA) >=1000 H (Normal) mg/dL - ABG Interpretation ABG results: 03/01/19 03/01/19 13:25 15:46 ABG pH 7.38 ABG pCO2 34 L ABG pO2 78 L ABG HCO3 20 L ABG Total CO2 21 ABG O2 Saturation 95 ABG Base Excess -4 L VBG pH 7.31 L VBG pCO2 52 H VBG pO2 56 H VBG HCO3 26 - Impressions ITS Impressions Chest X-Ray 03/01/19 12:41 IMPRESSION: Increased lung markings at the right suprahilar region, may be related to bronchitis versus early pneumonia. D/ / Kole Salas MD / Kole Salas MD Interpreting Provider: Kole Salas MD - Time Spent With Patient Total time spent is greater than 50% in coordination of care (as documented) at patient's floor/unit and/or counseling patient: - Attending Attestation Mr Stone is being observed for hyperglycemia awake, still nauseated, not vomiting, only pain is epigastric pain that he gets with vomiting. denies fevers or chills, discussed cxr and he hasn't had significant coughing, wheezing or sputum production. insulin pump is off. gen- alert, awake,appears stated age cv- reg rate and rhythm, normal s1,s2, no murmurs appreciated lungs- ctabl, no wheezing, rhonchi or crackles, normal resp effort on room air abd- soft, non tender, non distended, + bs neuro- AAOx3 Hyperglycemia, mixed picture DKA vs HHS Diabetes Mellitus Presenting bs in 300s, serum osm 289, but bicarb 24 and ph 7.38. BHB 1.29 and urine not sent to assess for ketones in ED Suspect given chart review on pt multiple admits and leaving AMAs and prior comments he doesn't know how ot use pump, that elevated bl sugars come more from med compliance/education issues; do not suspect CXR findings are an infectious cause to hyperglycemia as he is denying any sxs and has no wbc elevation - DKA protocol initiated, insulin gtt, cautious use of fluids given he received 2L boluses in ED and has HFrEF with EF 35% -serial bmps Possible bronchitis vs early pna on CXR without sxs or wbc elevation- monitor for now HTN, uncontrolled- cont home coreg, prn IV anti hypertensive HRrEF, last echo 09/2007 w EF 35 % and mild DD- strict i/os, daily weights, cont BB, not on acei/arb given CKD CKD stage uk- creat appears at recent baseline chronic baseline anemia further dx and plan as noted by resident
[2019-03-01 17:05] LABS: Phosphorous 3.5 mg/dL (2.7-4.5)
[2019-03-01 18:03] LABS: BUN/Creatinine Ratio 17 (6-26); Blood Urea Nitrogen 21 mg/dL (6-20); Calcium 9.6 mg/dL (8.6-10.3); Carbon Dioxide 23 mEq/L (23-29); Chloride 103 mEq/L (98-107); Glucose 253 mg/dL (70-105); Osmolality,Calculated 280 (280-300); Sodium 129 mEq/L (136-145); eGFR For African Americans > 60 (> 60); eGFR For Non-African Americans 60 (> 60)
[2019-03-01] MEDS: 0.45 % Sodium Chloride w/KCl 20 MEQ/1,000 ML MLS IVC SCH ×4 (18:23→23:17)
[2019-03-01] MEDS ORDERED: *HR* Metoprolol 5 MG/5 ML VIAL IVP PRN (18:53)
[2019-03-01 19:23] LABS: Bilirubin,Urine Negative (Negative); Blood,Urine Negative (Negative); Clarity,Urine Clear (Clear); Color,Urine Yellow (Yellow); Glucose,Urine (UA) >=1000 mg/dL (Normal); Ketones,Urine 15 mg/dL (Negative); Leukocyte Esterase,Urine Negative (Negative); Nitrite,Urine Negative (Negative); PH,Urine 7.5 pH Units (5.0-8.0); Protein,Urine 30 mg/dL (Neg-Trace); Urobilinogen,Urine Normal (Normal)
[2019-03-01 19:27] LABS: Bacteria,Urine None Seen per hpf (None-Few); Hyaline Casts,Urine None Seen per lpf (None-Few); Squamous Epithelial Cell,Urine Few per lpf (None-Few); WBC,Urine 0-3 per hpf (0-3)
[2019-03-01] MEDS ORDERED: Nicotine 14 MG PATCH.TD24 TD PRN (19:28)
[2019-03-01 19:46] LABS: Cannabinoid Screen,Urine Positive ng/mL (Cutoff = 50)
[2019-03-01 20:03] LABS: Amphetamine Screen,Urine Negative ng/mL (Cutoff=1000); Barbiturate Screen,Urine Negative ng/mL (Cutoff=200); Benzodiazepines Screen,Urine Negative ng/mL (Cutoff=200); Cocaine Screen,Urine Negative ng/mL (Cutoff= 300); Opiate Screen,Urine Negative ng/mL (Cutoff=300); Phencyclidine Screen,Urine Negative ng/mL (Cutoff=25)
[2019-03-01] MEDS ORDERED: *HR* Promethazine 25 MG/ML VIAL IVP ONE (21:57)
[2019-03-01] MEDS ORDERED: *HR* Promethazine 25 MG/ML VIAL ONE (22:03)
[2019-03-01 22:04] LABS: BUN/Creatinine Ratio 17 (6-26); Blood Urea Nitrogen 19 mg/dL (6-20); Calcium 9.6 mg/dL (8.6-10.3); Carbon Dioxide 23 mEq/L (23-29); Chloride 100 mEq/L (98-107); Glucose 99 mg/dL (70-105); Osmolality,Calculated 280 (280-300); Potassium 4.3 mEq/L (3.5-5.1); Sodium 134 mEq/L (136-145); eGFR For African Americans > 60 (> 60); eGFR For Non-African Americans > 60 (> 60)
[2019-03-01] MEDS ORDERED: Melatonin 3 MG TABLET PO ONE (22:15)
--- NOTE | 2019-03-01 23:46 | Electrocardiograph Report ---
Axtell Marley 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
[2019-03-02] MEDS ORDERED: Insulin DETEMIR 100 UNIT/ML X5UNITS SQ SCH ×2 (00:04→21:00)
[2019-03-02] MEDS ORDERED: traMADol 50 MG TABLET PO ONE ×2 (01:43→05:44)
[2019-03-02] MEDS ORDERED: *HR* Metoprolol 5 MG/5 ML VIAL IVP PRN (05:44)
[2019-03-02] MEDS ORDERED: Nicotine 14 MG PATCH.TD24 TD PRN (05:44)
[2019-03-02] MEDS ORDERED: Acetaminophen 325 MG TABLET PO PRN (05:44)
[2019-03-02] MEDS ORDERED: Naloxone 0.4 MG/ML INJ IVP PRN (05:44)
[2019-03-02] MEDS ORDERED: *HR* Dextrose 50 % in Water (Syg) 50 ML SYRINGE IVP PRN (05:44)
[2019-03-02] MEDS ORDERED: Ondansetron 4 MG/2 ML VIAL IVP PRN (05:44)
[2019-03-02 05:51] LABS: Basophils % 0.3 %; Eosinophils # 0.2 K/mcL (0.0-0.6); Eosinophils % 2.1 %; Hematocrit 34.9 % (37.5-50.1); Hemoglobin 11.8 g/dL (12.9-16.9); Immature Granulocytes % 0.4 % (0-4); Lymphocytes # 1.5 K/mcL (0.6-4.6); Lymphocytes % 13.1 %; Mean Corpuscular HGB Conc 33.8 g/dL (31.6-35.5); Mean Corpuscular Hemoglobin 30.3 pg (28.0-33.3); Mean Corpuscular Volume 89.7 fL (83.0-100.0); Mean Platelet Volume 10.7 fL (9.4-12.4); Monocytes # 0.7 K/mcL (0.0-1.3); Monocytes % 6.1 %; Neutrophils # 8.8 K/mcL (1.6-8.9); Platelet Count 240 K/mcL (140-400); Red Blood Count 3.89 M/mcL (4.19-5.50); Red Cell Distribution Width 13.3 % (11.5-14.5); White Blood Count 11.3 K/mcL (4.3-11.1)
[2019-03-02] MEDS ORDERED: Insulin LISPRO 300 UNITS/3 ML VIAL SQ SCH ×4 (06:00→21:00)
[2019-03-02 06:22] LABS: BUN/Creatinine Ratio 17 (6-26); Blood Urea Nitrogen 19 mg/dL (6-20); Calcium 9.3 mg/dL (8.6-10.3); Carbon Dioxide 21 mEq/L (23-29); Chloride 96 mEq/L (98-107); Glucose 276 mg/dL (70-105); Osmolality,Calculated 286 (280-300); Potassium 4.9 mEq/L (3.5-5.1); Sodium 132 mEq/L (136-145); eGFR For African Americans > 60 (> 60); eGFR For Non-African Americans > 60 (> 60)
--- NOTE | 2019-03-02 08:00 | Electrocardiograph Report ---
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
[2019-03-02] MEDS: Aspirin Enteric Coated 81 MG Tablet PO SCH (08:39)
[2019-03-02] MEDS: Insulin LISPRO 300 UNITS/3 ML VIAL SQ SCH ×3 (08:48→17:43)
[2019-03-02] MEDS ORDERED: Aspirin Enteric Coated 81 MG Tablet PO SCH (09:00)
--- NOTE | 2019-03-02 10:25 | Internal Med Progress Note ---
Hospitalist Progress Note - Encounter Date of Encounter: 03/02/19 Time of Encounter: 10:23 - Subjective Interval History: still n, no v ex: decr tenderness, incr BS. living in (homeless in past) sees endocrine - last about 2.5 weeks - knows how to use his pump, just doesn't know how it decides what its giving, occasionally will adjust dose down if feels he'll drop too fast - 500 to 50 in 1 hour and reverse "I'm the definition of brittle" - Exam Vitals: Temp Pulse Resp BP Pulse Ox 98 F 101 17 151/98 98 03/02/19 07:00 03/02/19 07:00 03/02/19 07:00 03/02/19 07:00 03/02/19 07:00 - Assessment and Plan (1) CHF (congestive heart failure) Current Visit: Yes Status: Chronic (2) H/O noncompliance with medical treatment, presenting hazards to health Current Visit: Yes Status: Acute (3) Nicotine dependence with nicotine-induced disorder Current Visit: No Status: Chronic (4) HTN (hypertension) Current Visit: Yes Status: Chronic (5) Abdominal pain Current Visit: Yes Status: Resolved (6) DVT prophylaxis Current Visit: No Status: Acute (7) Hyperglycemia Current Visit: No Status: Chronic - Time Spent with Patient Total time spent is greater than 50% in coordination of care (as documented) at patient's floor/unit and/or counseling patient: Internal Medicine: Result - Labs CBC & Chem 7: 03/02/19 04:23 03/02/19 04:23 Labs: Short CBC 03/01/19 03/02/19 Range/Units 13:09 04:23 WBC 10.2 11.3 H (4.3-11.1) K/mcL Hgb 12.6 L 11.8 L (12.9-16.9) g/dL Hct 36.5 L 34.9 L (37.5-50.1) % Plt Count 238 240 (140-400) K/mcL Neutrophils # 7.9 8.8 (1.6-8.9) K/mcL BMP 03/01/19 03/01/19 03/01/19 13:09 17:22 21:20 Sodium 131 L 129 L 134 L Potassium 4.8 4.0 4.3 Chloride 94 L 103 100 Carbon Dioxide 24 23 23 BUN 27 H 21 H 19 Creatinine 1.40 H 1.25 1.11 Glucose 317 H 253 H 99 Calcium 10.1 9.6 9.6 03/02/19 04:23 Sodium 132 L Potassium 4.9 Chloride 96 L Carbon Dioxide 21 L BUN 19 Creatinine 1.12 Glucose 276 H Calcium 9.3 Cardiac Enzymes 03/01/19 Range/Units 13:09 Troponin I < 0.03 (< 0.04) ng/mL Liver Function 03/01/19 Range/Units 13:09 Total Bilirubin 0.6 (0.3-1.0) mg/dL AST 18 (13-39) Units/L ALT 18 (7-52) Units/L Alkaline Phosphatase 112 H (34-104) Units/L Albumin 4.6 (3.5-5.7) g/dL Urine 03/01/19 Range/Units 19:00 Urine Color Yellow (Yellow) Urine Clarity Clear (Clear) Urine pH 7.5 (5.0-8.0) pH Units Ur Specific [place] 1.020 (1.010-1.025) Urine Protein 30 H (Neg-Trace) mg/dL Urine Glucose (UA) >=1000 H (Normal) mg/dL - ABG Interpretation ABG results: ABG ABG pH 7.38 pH Units (7.32-7.45) 03/01/19 15:46 ABG pCO2 34 mmHg (35-45) L 03/01/19 15:46 ABG pO2 78 mmHg (85-104) L 03/01/19 15:46 ABG O2 Saturation 95 % (95-98) 03/01/19 15:46 - Impressions Impressions Chest X-Ray 03/01/19 12:41 IMPRESSION: Increased lung markings at the right suprahilar region, may be related to bronchitis versus early pneumonia. D/ / Kole Salas MD / Kole Salas MD Interpreting Provider: Kole Salas MD Consult Discharge Plan - Plan Referrals: Steffen Cobb DO [Primary Care Provider] - (1) CHF (congestive heart failure) Qualifiers: Heart failure type: unspecified Heart failure chronicity: chronic Qualified Code(s): I50.9 - Heart failure, unspecified (3) Nicotine dependence with nicotine-induced disorder Qualifiers: Nicotine product type: cigarettes Qualified Code(s): F17.219 - Nicotine dependence, cigarettes, with unspecified nicotine-induced disorders (4) HTN (hypertension) Qualifiers: Hypertension type: essential hypertension Qualified Code(s): I10 - Essential (primary) hypertension (5) Abdominal pain Qualifiers: Abdominal location: generalized Qualified Code(s): R10.84 - Generalized abdominal pain
--- NOTE | 2019-03-02 15:03 | Discharge Summary ---
<Pedro Brenner S - Last Filed: 03/02/19 15:15> - NOTES TO OUTPATIENT PROVIDER Notes to Outpatient Provider: Mr. Alfonso was admitted for mild DKA versus hyperglycemia. He responded well to insulin drip and fluid resuscitation. He is a known brittle diabetic, and has progressed well back to his baseline. Eval uation of his epigastric abdominal pain was negative for any serious pathology, and is likely strain of the rectus abdominis muscle. Date of Encounter: 03/02/19 Time of Encounter: 09:30 - Discharge Diagnosis (1) CHF (congestive heart failure) Priority: Secondary Status: Chronic Assessment and Plan: No signs of fluid overload on this admission, no swelling of lower extremities, no shortness of breath. Continue outpatient Coreg Qualifiers: Heart failure type: unspecified Heart failure chronicity: chronic Qualified Code(s): I50.9 - Heart failure, unspecified (2) H/O noncompliance with medical treatment, presenting hazards to health Priority: Secondary Status: Chronic Assessment and Plan: After discussion with the patient, he seems to have good awareness of his diabetes, stating "on the definition of brittle" he informed me that she has dropped from over 500 to 30 in less than an hour in the past, and that he follows the insulin dosing suggested by his pump, occasionally decreasing the dose administered. He states that he decreases his dose infrequently. He was seen by his switchman approximately 2 weeks ago. He states that his comments yesterday about not knowing how his pump works were indicating he did not know how it calculated his dose, but that he does not have any questions about operating the pump, and does not desire any further instruction. (3) Nicotine dependence with nicotine-induced disorder Priority: Secondary Status: Chronic Assessment and Plan: Cigarette cessation counseling as desired Qualifiers: Nicotine product type: cigarettes Qualified Code(s): F17.219 - Nicotine dependence, cigarettes, with unspecified nicotine-induced disorders (4) HTN (hypertension) Priority: Secondary Status: Chronic Assessment and Plan: Patient continues to have measured blood pressures in the 150s and 160s, as needed Lopressor has been ordered during his hospital stay. Continue outpatient blood pressure medication regimen Qualifiers: Hypertension type: essential hypertension Qualified Code(s): I10 - Essential (primary) hypertension (5) Abdominal pain Priority: Secondary Status: Resolved Assessment and Plan: Abdominal pain resolving, nausea still present but vomiting is absent. Lipase was normal at 55, and EKG shows no signs of acute cardiac processes. Etiology of the pain is most likely rectus abdominis strain due to excessive vomiting Qualifiers: Abdominal location: generalized Qualified Code(s): R10.84 - Generalized abdominal pain (6) Hyperglycemia Priority: Primary Status: Chronic Assessment and Plan: Patient responded well to insulin drip and fluid resuscitation, he has been effectively managing himself for the last 12 hours or so, refusing insulin when he knows it will drop to low. Pending patient's ability to tolerate by mouth intake, he is ready to discharge home to self-care Hospital course: Mr. Stone is a 54 year old male with multiple admissions for DKA, as well as multiple episodes of leaving AMA. He presented yesterday with signs and symptoms of DKA with additional symptom of severe epigastric pain that is not normal to him. He was started on insulin regimen and fluid resuscitation, and responded well to these treatments. His nausea is persistent, however is severe vomiting has stopped. His abdominal pain is resolving, and all investigations into pathologic causes of the abdominal pain have been negative. Patient is ready to discharge home pending successful oral intake challenge - Time Spent with Patient Total time spent providing and/or coordinating discharge services: - Discharge Medications Prescriptions: Continued Escitalopram [Lexapro] 20 mg PO DAILY Atorvastatin Calcium [Lipitor] 80 mg PO HS Glucagon,Human Recombinant [Glucagon Emergency Kit] 1 each ONCE PRN PRN Reason: Blood Sugar - Low Clopidogrel [Plavix] 75 mg PO DAILY Carvedilol [Coreg] 6.25 mg PO BID Dorzolamide/Timolol [Cosopt] 1 drop BOTH EYES BID Pantoprazole Sodium [Protonix] 40 mg PO DAILY Nitroglycerin [Nitrostat] 0.4 mg SL Q5M PRN PRN Reason: Chest Pain Gabapentin [Neurontin] 800 mg PO TID Cyclobenzaprine HCl 10 mg PO TID PRN PRN Reason: Muscle Spasm Umeclidinium Brm/Vilanterol Tr [Anoro Ellipta 62.5-25 Mcg INH] 1 puff IH DAILY Buspirone HCl [Buspar] 5 mg PO BID PRN PRN Reason: Anxiety Aspirin [Adult Aspirin Regimen] 81 mg PO DAILY Subcutaneous Insulin Pump [T:Slim] 1 each AD Home Medications: Atorvastatin Calcium [Lipitor] 80 mg PO HS 07/15/16 [History] Carvedilol [Coreg] 6.25 mg PO BID 07/15/16 [History] Clopidogrel [Plavix] 75 mg PO DAILY 07/15/16 [History] Cyclobenzaprine HCl 10 mg PO TID PRN 07/15/16 [History] Dorzolamide/Timolol [Cosopt] 1 drop BOTH EYES BID 07/15/16 [History] Escitalopram [Lexapro] 20 mg PO DAILY 07/15/16 [History] Gabapentin [Neurontin] 800 mg PO TID 07/15/16 [History] Glucagon,Human Recombinant [Glucagon Emergency Kit] 1 each IJ ONCE PRN 07/15/16 [History] Nitroglycerin [Nitrostat] 0.4 mg SL Q5M PRN 07/15/16 [History] Pantoprazole Sodium [Protonix] 40 mg PO DAILY 07/15/16 [History] Buspirone HCl [Buspar] 5 mg PO BID PRN 08/19/17 [History] Umeclidinium Brm/Vilanterol Tr [Anoro Ellipta 62.5-25 Mcg INH] 1 puff IH DAILY 08/19/17 [History] Aspirin [Adult Aspirin Regimen] 81 mg PO DAILY 01/18/19 [History] Subcutaneous Insulin Pump [T:Slim] 1 each AD 03/02/19 [History] Allergies/Adverse Reactions: Allergy/AdvReac Type Severity Reaction Status Date / Time codeine Allergy Hives Verified 01/18/19 20:18 pregabalin [From Lyrica] Allergy Hives Verified 01/18/19 20:18 Date of admission: 03/01/19 15:21 Primary care physician: Steffen Cobb Consults: 03/01/19 16:14 Consult to Nutrition [CONS] Routine Comment: Consulting Provider: NUTRITION Reason for Dietary Consult: Other Other:: 23 lb weight loss in 6 months Discharging clinician: Pedro Brenner Anticipated date of discharge: 03/02/19 - Constitutional Vitals: Temp Pulse Resp BP Pulse Ox 97.9 F 94 16 158/95 96 03/02/19 11:14 03/02/19 11:14 03/02/19 11:14 03/02/19 11:14 03/02/19 11:14 General appearance: Present: disheveled, mild distress, A&O X 3, underweight, answers questions appropriately Exam: see below for remainder of physical exam - Head Head exam: Present: atraumatic, normocephalic - Eye Eye exam: Present: PERRL, conjuntiva pink - ENT ENT exam: Present: mucous membranes moist - Neck Neck exam general surgery: Present: normal inspection, trachea midline - Respiratory Respiratory exam: Present: CTAB - Cardiovascular Cardiovascular exam: Present: RRR, +S1, +S2 - GI/Abdominal GI/Abdominal exam: Present: guarding (Less than yesterday), tenderness (Decr eased from yesterday) - Extremities Exam Extremities exam: Present: warm, radial pulses palpable and symmetrical. Absent: cyanotic, pedal edema - Skin Skin exam: Present: dry, intact - Patient Status Disposition: Home, Self-Care Condition: Good Functional capacity at discharge: independent ambulation Overall status at discharge: patient is progressing back to baseline - Discharge Instructions Follow Up With: Steffen Cobb, [Primary Care Provider] - - Diet and Activity Activity: increase activity as tolerated Diet: advance to your usual diet <Madhu Li - Last Filed: 03/02/19 18:26> Date of Encounter: 03/02/19 - Discharge Diagnosis (1) DKA (diabetic ketoacidoses) Priority: Primary Status: Acute Qualifiers: Diabetes mellitus type: type 1 Diabetes mellitus complication detail: without coma Qualified Code(s): E10.10 - Type 1 diabetes mellitus with ketoacidosis without coma (2) HTN (hypertension) Status: Chronic Qualifiers: Hypertension type: essential hypertension Qualified Code(s): I10 - Essential (primary) hypertension (3) CAD (coronary artery disease) Priority: Secondary Status: Chronic Qualifiers: Coronary Disease-Associated Artery/Lesion type: [place] artery [place] vs. transplanted heart: [place] heart Associated angina: without angina Qualified Code(s): I25.10 - Atherosclerotic heart disease of [place] coronary artery without angina pectoris (4) Tobacco abuse Priority: Secondary Status: Chronic Hospital course: Mr. Stone is a 54 year old male - Time Spent with Patient Total time spent providing and/or coordinating discharge services: Date of admission: 03/01/19 15:21 Primary care physician: Steffen Cobb Consults: 03/01/19 16:14 Consult to Nutrition [CONS] Routine Comment: Consulting Provider: NUTRITION Reason for Dietary Consult: Other Other:: 23 lb weight loss in 6 months - Constitutional Vitals: Temp Pulse Resp BP Pulse Ox 97.6 F 99 17 104/69 96 03/02/19 16:19 03/02/19 16:19 03/02/19 16:19 03/02/19 16:03/02/19 11:14 - Attending Attestation I examined this patient and my medical decision-making was reviewed with the Resident Physician on 03/02/19. I agree with the documented findings, disposition and treatment plan as described except to the extent set forth below. Mr Stone has been admitted for acute DKA. He improved with IV insulin and was transferred to floor. He continued to have poor PO intake and insulin adjusted. He had fluctuation in his electrolytes which were treated and he is now afebrile and ready for discharge home. Exam Alert Comfortable Mucus membranes dry Heart reg and not tachy. No wheeze Abd soft. No edema. Plan D/C home today. Same insulin. D/C time 35min
[2019-03-02] MEDS ORDERED: Nitroglycerin 0.4 MG TAB.SUBL SL PRN (16:10)
[2019-03-02] MEDS ORDERED: (Subcutaneous Insulin Pump [T:Slim] 1 EACH) MC SCH (16:15)
[2019-03-02 17:03] LABS: BUN/Creatinine Ratio 14 (6-26); Blood Urea Nitrogen 16 mg/dL (6-20); Calcium 9.4 mg/dL (8.6-10.3); Carbon Dioxide 18 mEq/L (23-29); Chloride 101 mEq/L (98-107); Glucose 270 mg/dL (70-105); Osmolality,Calculated 277 (280-300); Sodium 128 mEq/L (136-145); eGFR For African Americans > 60 (> 60); eGFR For Non-African Americans > 60 (> 60)
[2019-03-02] MEDS ORDERED: Nicotine 21 MG PATCH.TD24 TD SCH (20:30)
[2019-03-02] MEDS: Gabapentin 400 MG CAPSULE PO SCH (21:19)
[2019-03-02] MEDS: Dorzolamide/Timolol OPTH 10 ML BOTTLE BOTH EYES SCH (21:25)
[2019-03-02 22:32] LABS: BUN/Creatinine Ratio 13 (6-26); Blood Urea Nitrogen 16 mg/dL (6-20); Calcium 9.4 mg/dL (8.6-10.3); Carbon Dioxide 24 mEq/L (23-29); Chloride 97 mEq/L (98-107); Glucose 199 mg/dL (70-105); Osmolality,Calculated 273 (280-300); Potassium 4.9 mEq/L (3.5-5.1); Sodium 128 mEq/L (136-145); eGFR For African Americans > 60 (> 60); eGFR For Non-African Americans > 60 (> 60)
[2019-03-03] MEDS ORDERED: Mag Hydrox/Al Hydrox/Simeth 30 ML UDC PO PRN (05:00)
[2019-03-03 06:54] LABS: Basophils % 0.4 %; Eosinophils # 0.3 K/mcL (0.0-0.6); Eosinophils % 3.8 %; Hematocrit 34.2 % (37.5-50.1); Hemoglobin 11.6 g/dL (12.9-16.9); Immature Granulocytes % 0.2 % (0-4); Lymphocytes # 1.7 K/mcL (0.6-4.6); Lymphocytes % 20.5 %; Mean Corpuscular HGB Conc 33.9 g/dL (31.6-35.5); Mean Corpuscular Volume 88.4 fL (83.0-100.0); Mean Platelet Volume 10.3 fL (9.4-12.4); Monocytes # 0.6 K/mcL (0.0-1.3); Neutrophils # 5.6 K/mcL (1.6-8.9); Platelet Count 220 K/mcL (140-400); Red Blood Count 3.87 M/mcL (4.19-5.50); Red Cell Distribution Width 13.2 % (11.5-14.5); Segmented Neutrophils % 68.1 %; White Blood Count 8.3 K/mcL (4.3-11.1)
[2019-03-03 07:13] LABS: BUN/Creatinine Ratio 13 (6-26); Blood Urea Nitrogen 17 mg/dL (6-20); Calcium 9.4 mg/dL (8.6-10.3); Carbon Dioxide 23 mEq/L (23-29); Chloride 97 mEq/L (98-107); Glucose 261 mg/dL (70-105); Osmolality,Calculated 279 (280-300); Potassium 4.6 mEq/L (3.5-5.1); Sodium 129 mEq/L (136-145); eGFR For African Americans > 60 (> 60); eGFR For Non-African Americans 56 (> 60)
[2019-03-03 07:34] VITALS: BP 123/76
[2019-03-03] MEDS: Insulin LISPRO 300 UNITS/3 ML VIAL SQ SCH ×2 (08:15→12:17)
[2019-03-03] MEDS: Aspirin Enteric Coated 81 MG Tablet PO SCH (08:24)
[2019-03-03] MEDS: Gabapentin 400 MG CAPSULE PO SCH (08:24)
[2019-03-03] MEDS: Dorzolamide/Timolol OPTH 10 ML BOTTLE BOTH EYES SCH (08:25)
[2019-03-03] MEDS ORDERED: NON-FORMULARY MEDICATION 1 EACH EACH (Umeclidinium Brm/Vilanterol Tr [Anoro Ellipta 62.5-2 IH SCH (09:00)
--- NOTE | 2019-03-03 16:11 | Internal Med Progress Note ---
Hospitalist Progress Note - Encounter Date of Encounter: 03/03/19 Time of Encounter: 09:30 - Subjective Interval History: Mr Stone is currently hospitalized for acute DKA. He remains moderate risk at this time. Mr Stone is doing better today. He feels near baseline. No fever or chills. No CP or SOB. Able to eat. - Exam Vitals: Temp Pulse Resp BP Pulse Ox 98 F 94 18 123/76 99 03/03/19 07:28 03/03/19 07:28 03/03/19 07:28 03/03/19 07:28 03/03/19 07:28 Exam: Gen: Alert. Comfortable. H: NC EENT: Mucus membranes dry. EOMI. Neck supple Heart reg and not tachy Lungs clear Abd soft and nontender No rash. Pulses palpable Moves all extremities. - Assessment and Plan (1) DKA (diabetic ketoacidoses) Current Visit: Yes Status: Resolved Assessment and Plan: Resolved. Back on pump. (2) HTN (hypertension) Current Visit: Yes Status: Chronic Assessment and Plan: Controlled at this time. (3) CAD (coronary artery disease) Current Visit: No Status: Chronic Assessment and Plan: Asymptomatic. (4) Tobacco abuse Current Visit: Yes Status: Chronic Assessment and Plan: Cessation counselling. - Time Spent with Patient Total time spent is greater than 50% in coordination of care (as documented) at patient's floor/unit and/or counseling patient: Internal Medicine: Result - Labs CBC & Chem 7: 03/03/19 06:21 03/03/19 06:21 Labs: Short CBC 03/03/19 Range/Units 06:21 WBC 8.3 (4.3-11.1) K/mcL Hgb 11.6 L (12.9-16.9) g/dL Hct 34.2 L (37.5-50.1) % Plt Count 220 (140-400) K/mcL Neutrophils # 5.6 (1.6-8.9) K/mcL BMP 03/02/19 03/02/19 03/02/19 16:37 18:19 22:00 Sodium 128 L 128 L Potassium 6.0 H 5.4 H 4.9 Chloride 101 97 L Carbon Dioxide 18 L 24 BUN 16 16 Creatinine 1.18 1.24 Glucose 270 H 199 H Calcium 9.4 9.4 03/03/19 06:21 Sodium 129 L Potassium 4.6 Chloride 97 L Carbon Dioxide 23 BUN 17 Creatinine 1.32 H Glucose 261 H Calcium 9.4 - ABG Interpretation ABG results: ABG ABG pH 7.38 pH Units (7.32-7.45) 03/01/19 15:46 ABG pCO2 34 mmHg (35-45) L 03/01/19 15:46 ABG pO2 78 mmHg (85-104) L 03/01/19 15:46 ABG O2 Saturation 95 % (95-98) 03/01/19 15:46 Consult Discharge Plan - Plan Instructions: Heart Failure (DC), Acute Kidney Injury (DC), Diabetes Mellitus Type 2 in Adults (DC), Chronic Obstructive Pulmonary Disease (DC), Chronic Hypertension (DC), Anemia (GEN), Pneumonia (DC), Cigarette Smoking and Your Health, [employer] Intelligence Officer (GEN) Referrals: Steffen Cobb DO [Primary Care Provider] - 03/09/19 10:30 am (1) DKA (diabetic ketoacidoses) Qualifiers: Diabetes mellitus type: type 1 Diabetes mellitus complication detail: without coma Qualified Code(s): E10.10 - Type 1 diabetes mellitus with ketoacidosis without coma (2) HTN (hypertension) Qualifiers: Hypertension type: essential hypertension Qualified Code(s): I10 - Essential (primary) hypertension (3) CAD (coronary artery disease) Qualifiers: Coronary Disease-Associated Artery/Lesion type: [place] artery [place] vs. transplanted heart: [place] heart Associated angina: without angina Qualified Code(s): I25.10 - Atherosclerotic heart disease of [place] coronary artery without angina pectoris
== END 2019-03-03 16:19 | disposition home or self-care (01) ==
LOC: EMEROOARM 11:56 → ICNU 11:56 → SUATTDRO 15:21 → ICNU 15:59 → 2NENU 03-02 05:27
PROVIDERS: ADMIT Internal Medicine Nephrology; ATTEND Internal Medicine

== ENCOUNTER 2019-05-01 17:00 | Inpatient (IN) ==
[2019-05-01] MEDS ORDERED: *HR* Promethazine 25 MG/ML VIAL IVP ONE (17:22)
[2019-05-01] MEDS: 0.9 % Sodium Chloride 1,000 ML IVC SCH ×2 (17:36→18:39)
[2019-05-01 17:45] LABS: ABG Base Excess -12 mEq/L (-2 to 3); ABG HCO3 14 mEq/L (21-27); ABG Oxygen Saturation 96 % (95-98); ABG PCO2 30 mmHg (35-45); ABG PH 7.27 pH Units (7.32-7.45); ABG PO2 91 mmHg (85-104); ABG TCO2 15 mEq/L (20-26)
[2019-05-01 18:24] LABS: Basophils % 0.5 %; Eosinophils # 0.1 K/mcL (0.0-0.6); Eosinophils % 1.7 %; Hematocrit 34.4 % (37.5-50.1); Hemoglobin 11.3 g/dL (12.9-16.9); Immature Granulocytes % 0.2 % (0-4); Lymphocytes # 1.2 K/mcL (0.6-4.6); Lymphocytes % 13.9 %; Mean Corpuscular HGB Conc 32.8 g/dL (31.6-35.5); Mean Corpuscular Hemoglobin 30.6 pg (28.0-33.3); Mean Corpuscular Volume 93.2 fL (83.0-100.0); Mean Platelet Volume 11.2 fL (9.4-12.4); Monocytes # 0.5 K/mcL (0.0-1.3); Monocytes % 5.7 %; Neutrophils # 6.6 K/mcL (1.6-8.9); Platelet Count 285 K/mcL (140-400); Red Blood Count 3.69 M/mcL (4.19-5.50); Red Cell Distribution Width 12.8 % (11.5-14.5); White Blood Count 8.4 K/mcL (4.3-11.1)
[2019-05-01 18:54] LABS: Alanine Aminotransferase 18 Units/L (7-52); Albumin 4.3 g/dL (3.5-5.7); Albumin/Globulin Ratio 1.7 (1.1-2.2); Alkaline Phosphatase 114 Units/L (34-104); Aspartate Amino Transferase 15 Units/L (13-39); BUN/Creatinine Ratio 24 (6-26); Bilirubin,Direct 0.2 mg/dL (0.0-0.2); Bilirubin,Indirect 0.4 mg/dL (0.0-1.0); Bilirubin,Total 0.6 mg/dL (0.3-1.0); Blood Urea Nitrogen 43 mg/dL (6-20); Calcium 9.6 mg/dL (8.6-10.3); Carbon Dioxide 13 mEq/L (23-29); Chloride 93 mEq/L (98-107); Globulin 2.6 g/dL (2.4-3.5); Glucose 871 mg/dL (70-105); Lipase 27 Units/L (11-82); Magnesium 1.7 mg/dL (1.6-2.6); Osmolality,Calculated 314 (280-300); Phosphorous 4.7 mg/dL (2.7-4.5); Potassium 5.4 mEq/L (3.5-5.1); Sodium 125 mEq/L (136-145); Total Protein 6.9 g/dL (6.4-8.9); Troponin I < 0.03 ng/mL (< 0.04); eGFR For African Americans 47 (> 60); eGFR For Non-African Americans 39 (> 60)
[2019-05-01] MEDS ORDERED: *HR* Dextrose 50 % in Water (Syg) 50 ML SYRINGE IVP PRN ×2 (19:06→20:18)
[2019-05-01] MEDS ORDERED: Insulin Human Regular 100 UNIT in 0.9 % Sodium Chloride 100 ML IVC SCH (19:15)
[2019-05-01] MEDS ORDERED: Insulin Human Regular 10 UNIT in 0.9 % Sodium Chloride 10 ML IV ONE (19:24)
[2019-05-01 19:41] LABS: Bilirubin,Urine Negative (Negative); Blood,Urine Negative (Negative); Clarity,Urine Clear (Clear); Color,Urine Yellow (Yellow); Glucose,Urine (UA) >=1000 mg/dL (Normal); Ketones,Urine 40 mg/dL (Negative); Leukocyte Esterase,Urine Negative (Negative); Nitrite,Urine Negative (Negative); Protein,Urine Negative (Neg-Trace); Specific Gravity,Urine 1.022 (1.010-1.025); Urobilinogen,Urine Normal (Normal)
[2019-05-01] MEDS ORDERED: D5% in 0.45% NACL w KCl 20 MEQ/1,000 ML MLS IVC PRN (20:18)
[2019-05-01] MEDS ORDERED: Insulin LISPRO 300 UNITS/3 ML VIAL SQ PRN (20:18)
[2019-05-01] MEDS ORDERED: D5% in 0.45% NACL 1,000 ML IVC PRN (20:18)
[2019-05-01] MEDS ORDERED: Nitroglycerin 0.4 MG TAB.SUBL SL PRN (20:36)
[2019-05-01] MEDS ORDERED: Ondansetron 4 MG/2 ML VIAL IVP PRN (20:41)
[2019-05-01] MEDS ORDERED: Mirtazapine 15 MG TABLET PO SCH (21:00)
[2019-05-01 21:10] LABS: Estimated Average Glucose 298 mg/dl
[2019-05-01 21:16] LABS: VBG HCO3 15 mEq/L (21-27); VBG PCO2 52 mmHg (41-51); VBG PH 7.07 pH Units (7.32-7.42); VBG PO2 131 mmHg (25-50)
[2019-05-01] MEDS: 0.45 % Sodium Chloride w/KCl 20 MEQ/1,000 ML MLS IVC SCH ×2 (21:16→23:17)
[2019-05-01] MEDS: Gabapentin 400 MG CAPSULE PO SCH (21:18)
[2019-05-01] MEDS: *HR* Heparin 5,000 UNIT/ML VIAL SQ SCH (21:18)
[2019-05-01 21:28] LABS: Calcium 9.5 mg/dL (8.6-10.3); Potassium 4.1 mEq/L (3.5-5.1)
[2019-05-01] MEDS ORDERED: Ipratropium/Albuterol Neb 3 ML IH PRN (21:36)
[2019-05-01 22:23] LABS: VBG HCO3 17 mEq/L (21-27); VBG PCO2 43 mmHg (41-51); VBG PO2 143 mmHg (25-50)
[2019-05-01 22:41] LABS: Calcium 9.4 mg/dL (8.6-10.3); Potassium 4.5 mEq/L (3.5-5.1)
[2019-05-01] MEDS: Dorzolamide/Timolol OPTH 10 ML BOTTLE BOTH EYES SCH (23:14)
[2019-05-02 00:45] LABS: VBG HCO3 22 mEq/L (21-27); VBG PCO2 46 mmHg (41-51); VBG PH 7.28 pH Units (7.32-7.42); VBG PO2 164 mmHg (25-50)
[2019-05-02 01:04] LABS: Calcium 9.4 mg/dL (8.6-10.3); Potassium 4.9 mEq/L (3.5-5.1)
[2019-05-02] MEDS ORDERED: Insulin Human Regular 100 UNIT in 0.9 % Sodium Chloride 100 ML IVC SCH ×2 (01:30→04:30)
[2019-05-02 02:11] LABS: VBG HCO3 22 mEq/L (21-27); VBG PCO2 48 mmHg (41-51); VBG PH 7.27 pH Units (7.32-7.42); VBG PO2 150 mmHg (25-50)
[2019-05-02 02:32] LABS: Calcium 9.6 mg/dL (8.6-10.3); Potassium 5.3 mEq/L (3.5-5.1)
[2019-05-02] MEDS: 0.9 % Sodium Chloride 1,000 ML IVC SCH ×3 (04:10→20:36)
[2019-05-02] MEDS: 0.45 % Sodium Chloride w/KCl 20 MEQ/1,000 ML MLS IVC SCH (04:10)
[2019-05-02] MEDS ORDERED: Dextrose Gel 15 GM/37.5 ML TUBE PO PRN ×4 (04:38→09:28)
[2019-05-02] MEDS ORDERED: Insulin DETEMIR 100 UNIT/ML X5UNITS SQ SCH (04:38)
[2019-05-02 04:43] LABS: Basophils # 0.1 K/mcL (0.0-0.2); Basophils % 0.7 %; Eosinophils # 0.2 K/mcL (0.0-0.6); Eosinophils % 2.8 %; Hematocrit 29.8 % (37.5-50.1); Hemoglobin 10.6 g/dL (12.9-16.9); Immature Granulocytes % 0.3 % (0-4); Lymphocytes # 1.5 K/mcL (0.6-4.6); Lymphocytes % 20.4 %; Mean Corpuscular HGB Conc 35.6 g/dL (31.6-35.5); Mean Corpuscular Hemoglobin 31.1 pg (28.0-33.3); Mean Corpuscular Volume 87.4 fL (83.0-100.0); Mean Platelet Volume 10.2 fL (9.4-12.4); Monocytes # 0.6 K/mcL (0.0-1.3); Monocytes % 7.5 %; Platelet Count 317 K/mcL (140-400); Red Blood Count 3.41 M/mcL (4.19-5.50); Red Cell Distribution Width 13.1 % (11.5-14.5); Segmented Neutrophils % 68.3 %; White Blood Count 7.4 K/mcL (4.3-11.1)
[2019-05-02 04:45] LABS: VBG HCO3 21 mEq/L (21-27); VBG PCO2 50 mmHg (41-51); VBG PH 7.23 pH Units (7.32-7.42); VBG PO2 83 mmHg (25-50)
[2019-05-02] MEDS: *HR* Heparin 5,000 UNIT/ML VIAL SQ SCH ×3 (04:59→23:09)
[2019-05-02 05:02] LABS: Albumin 4.1 g/dL (3.5-5.7); Albumin/Globulin Ratio 1.7 (1.1-2.2); Bilirubin,Total 0.3 mg/dL (0.3-1.0); Calcium 9.4 mg/dL (8.6-10.3); Globulin 2.4 g/dL (2.4-3.5); Potassium 5.5 mEq/L (3.5-5.1); Total Protein 6.5 g/dL (6.4-8.9)
[2019-05-02 06:11] LABS: Phosphorous 3.7 mg/dL (2.7-4.5)
[2019-05-02] MEDS ORDERED: Insulin LISPRO 300 UNITS/3 ML VIAL SQ SCH ×3 (07:30→21:00)
[2019-05-02] MEDS: Gabapentin 400 MG CAPSULE PO SCH ×3 (08:45→22:27)
[2019-05-02] MEDS: Dorzolamide/Timolol OPTH 10 ML BOTTLE BOTH EYES SCH ×2 (08:45→22:27)
[2019-05-02] MEDS ORDERED: Aspirin Enteric Coated 81 MG Tablet PO SCH (09:00)
[2019-05-02] MEDS ORDERED: Nicotine 21 MG PATCH.TD24 TD SCH (09:00)
[2019-05-02] MEDS ORDERED: ANORO ELLIPTA IH SCH (09:00)
[2019-05-02] MEDS ORDERED: *HR* Dextrose 50 % in Water (Syg) 50 ML SYRINGE IVP PRN (09:28)
[2019-05-02] MEDS ORDERED: Ipratropium/Albuterol Neb 3 ML IH PRN (09:28)
[2019-05-02] MEDS ORDERED: Nitroglycerin 0.4 MG TAB.SUBL SL PRN (09:28)
[2019-05-02] MEDS ORDERED: Ondansetron 4 MG/2 ML VIAL IVP PRN (09:28)
[2019-05-02] MEDS: Insulin LISPRO 300 UNITS/3 ML VIAL SQ SCH ×2 (12:10→16:54)
[2019-05-02] MEDS ORDERED: Mirtazapine 15 MG TABLET PO SCH (21:00)
[2019-05-02] MEDS ORDERED: Neosporin OINT 1 APPL PACKET TP ONE (21:24)
[2019-05-03] MEDS ORDERED: Insulin LISPRO 300 UNITS/3 ML VIAL SQ SCH ×2 (01:48→07:30)
[2019-05-03] MEDS ORDERED: Insulin LISPRO 300 UNITS/3 ML VIAL SQ ONE ×2 (02:10→09:24)
[2019-05-03] MEDS: *HR* Heparin 5,000 UNIT/ML VIAL SQ SCH (05:09)
[2019-05-03 07:22] LABS: Basophils % 0.5 %; Eosinophils # 0.4 K/mcL (0.0-0.6); Eosinophils % 4.1 %; Hematocrit 29.3 % (37.5-50.1); Immature Granulocytes % 0.2 % (0-4); Lymphocytes # 2.2 K/mcL (0.6-4.6); Lymphocytes % 25.5 %; Mean Corpuscular HGB Conc 34.1 g/dL (31.6-35.5); Mean Corpuscular Hemoglobin 30.7 pg (28.0-33.3); Mean Corpuscular Volume 89.9 fL (83.0-100.0); Mean Platelet Volume 10.4 fL (9.4-12.4); Monocytes # 0.6 K/mcL (0.0-1.3); Monocytes % 6.8 %; Neutrophils # 5.3 K/mcL (1.6-8.9); Platelet Count 295 K/mcL (140-400); Red Blood Count 3.26 M/mcL (4.19-5.50); Red Cell Distribution Width 13.4 % (11.5-14.5); Segmented Neutrophils % 62.9 %; White Blood Count 8.4 K/mcL (4.3-11.1)
[2019-05-03 07:51] VITALS: BP 160/83
[2019-05-03] MEDS: Gabapentin 400 MG CAPSULE PO SCH (08:41)
[2019-05-03] MEDS: Dorzolamide/Timolol OPTH 10 ML BOTTLE BOTH EYES SCH (08:43)
[2019-05-03] MEDS ORDERED: Nicotine 21 MG PATCH.TD24 TD SCH (09:00)
[2019-05-03] MEDS ORDERED: Aspirin Enteric Coated 81 MG Tablet PO SCH (09:00)
[2019-05-03] MEDS ORDERED: Insulin DETEMIR 100 UNIT/ML X5UNITS SQ SCH ×2 (09:00)
[2019-05-03 09:09] LABS: Alanine Aminotransferase 19 Units/L (7-52); Albumin 3.9 g/dL (3.5-5.7); Albumin/Globulin Ratio 1.9 (1.1-2.2); Alkaline Phosphatase 95 Units/L (34-104); Aspartate Amino Transferase 26 Units/L (13-39); BUN/Creatinine Ratio 23 (6-26); Bilirubin,Total 0.3 mg/dL (0.3-1.0); Blood Urea Nitrogen 33 mg/dL (6-20); Carbon Dioxide 19 mEq/L (23-29); Chloride 103 mEq/L (98-107); Globulin 2.1 g/dL (2.4-3.5); Glucose 240 mg/dL (70-105); Magnesium 1.5 mg/dL (1.6-2.6); Osmolality,Calculated 283 (280-300); Phosphorous 4.1 mg/dL (2.7-4.5); Potassium 6.3 mEq/L (3.5-5.1); Sodium 129 mEq/L (136-145); eGFR For African Americans > 60 (> 60); eGFR For Non-African Americans 51 (> 60)
[2019-05-03] MEDS ORDERED: *HR* Dextrose 25% in Water (Syg) 10 ML SYRINGE IVP ONE (09:22)
[2019-05-03] MEDS ORDERED: *HR* Dextrose 50 % in Water (Syg) 50 ML SYRINGE IVP ONE (10:00)
== END 2019-05-03 10:48 | disposition home or self-care (01) | DRG 637 ==
LOC: EMEROOARM 17:00 → ICNU 17:00 → SUATTDRO 21:49 → 3ANU 05-02 09:19
PROVIDERS: ADMIT Internal Medicine; ATTEND Pharmacist

== ENCOUNTER 2019-05-25 17:53 | Inpatient (IN) ==
[2019-05-25] MEDS ORDERED: 0.9 % Sodium Chloride 1,000 ML IVC ONE ×2 (19:05→20:12)
[2019-05-25 19:33] LABS: Basophils % 0.3 %; Eosinophils # 0.2 K/mcL (0.0-0.6); Eosinophils % 2.2 %; Hematocrit 39.6 % (37.5-50.1); Hemoglobin 13.5 g/dL (12.9-16.9); Immature Granulocytes % 0.3 % (0-4); Lymphocytes % 12.5 %; Mean Corpuscular HGB Conc 34.1 g/dL (31.6-35.5); Mean Corpuscular Hemoglobin 30.1 pg (28.0-33.3); Mean Corpuscular Volume 88.4 fL (83.0-100.0); Mean Platelet Volume 11.2 fL (9.4-12.4); Monocytes # 0.6 K/mcL (0.0-1.3); Monocytes % 7.6 %; Neutrophils # 5.9 K/mcL (1.6-8.9); Platelet Count 330 K/mcL (140-400); Red Blood Count 4.48 M/mcL (4.19-5.50); Red Cell Distribution Width 13.4 % (11.5-14.5); Segmented Neutrophils % 77.1 %; White Blood Count 7.6 K/mcL (4.3-11.1)
[2019-05-25 19:37] LABS: Prothrombin Time 11.3 Seconds (9.4-12.1)
[2019-05-25 19:40] LABS: Activated Partial Thrombo Time 34.3 Seconds (26.0-36.0)
[2019-05-25 20:03] LABS: Albumin 4.7 g/dL (3.5-5.7); Albumin/Globulin Ratio 1.2 (1.1-2.2); Bilirubin,Direct 0.1 mg/dL (0.0-0.2); Bilirubin,Indirect 0.5 mg/dL (0.0-1.0); Bilirubin,Total 0.6 mg/dL (0.3-1.0); Calcium 10.7 mg/dL (8.6-10.3); Globulin 3.9 g/dL (2.4-3.5); Potassium 6.5 mEq/L (3.5-5.1); Total Protein 8.6 g/dL (6.4-8.9); Troponin I 0.11 ng/mL (< 0.04)
[2019-05-25] MEDS ORDERED: Aspirin 325 MG TABLET PO ONE (20:08)
[2019-05-25] MEDS ORDERED: *HR* Dextrose 50 % in Water (Syg) 50 ML SYRINGE IVP PRN ×2 (20:13→21:57)
[2019-05-25] MEDS ORDERED: Insulin Human Regular 100 UNIT in 0.9 % Sodium Chloride 100 ML IVC SCH (20:15)
[2019-05-25] MEDS ORDERED: *HR* Heparin 5,000 UNIT/ML VIAL IVP ONE (20:16)
[2019-05-25] MEDS ORDERED: *HR* Heparin 5,000 UNIT/ML VIAL IVP PRN ×2 (20:16)
[2019-05-25] MEDS ORDERED: Heparin 25,000 UNIT/250 ML D5W 25,000 UNIT/250 ML IV.SOLN IVC SCH (20:30)
[2019-05-25 21:22] LABS: Bilirubin,Urine Small (Negative); Blood,Urine Trace (Negative); Clarity,Urine Clear (Clear); Color,Urine Yellow (Yellow); Glucose,Urine (UA) >=1000 mg/dL (Normal); Ketones,Urine Trace mg/dL (Negative); Leukocyte Esterase,Urine Negative (Negative); Nitrite,Urine Negative (Negative); PH,Urine 5.5 pH Units (5.0-8.0); Protein,Urine 30 mg/dL (Neg-Trace); Specific Gravity,Urine 1.023 (1.010-1.025); Urobilinogen,Urine Normal (Normal)
[2019-05-25 21:23] LABS: Bacteria,Urine None Seen per hpf (None-Few); Hyaline Casts,Urine None Seen per lpf (None-Few); Squamous Epithelial Cell,Urine Few per lpf (None-Few); WBC,Urine 0-3 per hpf (0-3)
[2019-05-25] MEDS ORDERED: Insulin Regular, Human 100 UNIT/ML IV PRN ×2 (21:57)
[2019-05-25] MEDS ORDERED: D5% in 0.45% NACL 1,000 ML IVC PRN (21:57)
[2019-05-25 23:38] LABS: ABG Base Excess -4 mEq/L (-2 to 3); ABG HCO3 21 mEq/L (21-27); ABG Oxygen Saturation 95 % (95-98); ABG PCO2 38 mmHg (35-45); ABG PH 7.36 pH Units (7.32-7.45); ABG PO2 81 mmHg (85-104); ABG TCO2 22 mEq/L (20-26)
[2019-05-25] MEDS ORDERED: Melatonin 3 MG TABLET PO PRN (23:38)
[2019-05-25] MEDS ORDERED: Mirtazapine 15 MG TABLET PO SCH (23:45)
[2019-05-25] MEDS ORDERED: Nicotine 21 MG PATCH.TD24 TD SCH (23:45)
[2019-05-26] MEDS: Dorzolamide/Timolol OPTH 10 ML BOTTLE BOTH EYES SCH ×3 (00:37→20:32)
[2019-05-26] MEDS: D5% in 0.45% NACL w KCl 20 MEQ/1,000 ML MLS IVC PRN ×2 (01:12→04:51)
[2019-05-26] MEDS ORDERED: Naloxone 0.4 MG/ML INJ IVP PRN ×2 (01:51→11:19)
[2019-05-26 02:13] LABS: VBG HCO3 18 mEq/L (21-27); VBG PCO2 27 mmHg (41-51); VBG PH 7.42 pH Units (7.32-7.42); VBG PO2 124 mmHg (25-50)
[2019-05-26 02:32] LABS: Potassium 4.6 mEq/L (3.5-5.1)
[2019-05-26 02:45] LABS: Troponin I 0.09 ng/mL (< 0.04)
[2019-05-26 02:53] LABS: Calcium 9.2 mg/dL (8.6-10.3); Magnesium 1.9 mg/dL (1.6-2.6); Potassium 4.8 mEq/L (3.5-5.1)
[2019-05-26] MEDS ORDERED: Acetaminophen 325 MG TABLET PO PRN ×2 (03:26→11:19)
[2019-05-26 04:24] LABS: VBG HCO3 20 mEq/L (21-27); VBG PCO2 40 mmHg (41-51); VBG PH 7.31 pH Units (7.32-7.42); VBG PO2 72 mmHg (25-50)
[2019-05-26 04:47] LABS: Potassium 4.4 mEq/L (3.5-5.1)
[2019-05-26] MEDS ORDERED: *HR* Dextrose 50 % in Water (Syg) 50 ML SYRINGE IVP PRN ×2 (04:57→11:19)
[2019-05-26] MEDS ORDERED: D5% in Water 1,000 ML IVC PRN (04:57)
[2019-05-26] MEDS ORDERED: Dextrose Gel 15 GM/37.5 ML TUBE PO PRN ×4 (04:57→11:19)
[2019-05-26] MEDS ORDERED: Insulin DETEMIR 100 UNIT/ML X5UNITS SQ ONE (05:11)
[2019-05-26] MEDS ORDERED: Insulin LISPRO 300 UNITS/3 ML VIAL SQ SCH ×5 (07:30→21:00)
[2019-05-26] MEDS ORDERED: (Umeclidinium Brm/Vilanterol Tr [Anoro Ellipta 62.5-2) IH SCH (09:00)
[2019-05-26] MEDS ORDERED: Aspirin Enteric Coated 81 MG Tablet PO SCH (09:00)
[2019-05-26] MEDS ORDERED: Pantoprazole 40 MG VIAL IVP SCH (10:00)
[2019-05-26 11:18] LABS: Estimated Average Glucose 335 mg/dl
[2019-05-26] MEDS ORDERED: Insulin Human Regular 100 UNIT in 0.9 % Sodium Chloride 100 ML IVC SCH (11:19)
[2019-05-26] MEDS ORDERED: Melatonin 3 MG TABLET PO PRN (11:19)
[2019-05-26] MEDS ORDERED: Insulin Regular, Human 100 UNIT/ML IV PRN ×2 (11:19)
[2019-05-26] MEDS ORDERED: Ondansetron 4 MG/2 ML VIAL IVP PRN (14:19)
[2019-05-26] MEDS ORDERED: Mag Hydrox/Al Hydrox/Simeth 30 ML UDC PO PRN (16:28)
[2019-05-26] MEDS: Mirtazapine 15 MG TABLET PO SCH (20:31)
[2019-05-26] MEDS ORDERED: Insulin DETEMIR 100 UNIT/ML X5UNITS SQ SCH (21:00)
[2019-05-26] MEDS ORDERED: Nicotine 21 MG PATCH.TD24 TD SCH (23:45)
[2019-05-27] MEDS ORDERED: 0.9 % Sodium Chloride 1,000 ML IVC ONE (02:59)
[2019-05-27] MEDS ORDERED: Insulin LISPRO 300 UNITS/3 ML VIAL SQ ONE (03:13)
[2019-05-27] MEDS ORDERED: Insulin LISPRO 300 UNITS/3 ML VIAL SQ SCH ×2 (07:30→21:00)
[2019-05-27] MEDS: Aspirin Enteric Coated 81 MG Tablet PO SCH (08:05)
[2019-05-27] MEDS: Dorzolamide/Timolol OPTH 10 ML BOTTLE BOTH EYES SCH ×2 (08:07→21:36)
[2019-05-27] MEDS ORDERED: (Umeclidinium Brm/Vilanterol Tr [Anoro Ellipta 62.5-2) IH SCH (09:00)
[2019-05-27] MEDS ORDERED: Insulin DETEMIR 100 UNIT/ML X5UNITS SQ SCH (09:00)
[2019-05-27 10:24] LABS: Hematocrit 32.1 % (37.5-50.1); Mean Corpuscular HGB Conc 31.8 g/dL (31.6-35.5); Mean Corpuscular Hemoglobin 30.2 pg (28.0-33.3); Mean Platelet Volume 10.8 fL (9.4-12.4); Platelet Count 205 K/mcL (140-400); Red Blood Count 3.38 M/mcL (4.19-5.50); Red Cell Distribution Width 13.1 % (11.5-14.5); White Blood Count 5.4 K/mcL (4.3-11.1)
[2019-05-27 10:31] LABS: Hemoglobin 10.2 g/dL (12.9-16.9)
[2019-05-27 10:41] LABS: Calcium 9.2 mg/dL (8.6-10.3); Potassium 5.1 mEq/L (3.5-5.1)
[2019-05-27] MEDS: Insulin LISPRO 300 UNITS/3 ML VIAL SQ SCH ×3 (12:38→18:12)
[2019-05-27] MEDS ORDERED: *HR* Dextrose 50 % in Water (Syg) 50 ML SYRINGE IVP PRN (15:34)
[2019-05-27] MEDS ORDERED: Dextrose Gel 15 GM/37.5 ML TUBE PO PRN ×2 (15:34)
[2019-05-27] MEDS ORDERED: D5% in Water 1,000 ML IVC PRN (15:34)
[2019-05-27] MEDS ORDERED: Albuterol 2.5 MG/3 ML NEBULIZER IH PRN (15:48)
[2019-05-27] MEDS ORDERED: Nicotine 21 MG PATCH.TD24 TD SCH (17:34)
[2019-05-27 18:04] LABS: Amphetamines NEGATIVE ng/mL (Cutoff 30); Barbiturates NEGATIVE ng/mL (Cutoff 75); Benzodiazepines NEGATIVE ng/mL (Cutoff 75); Buprenorphine NEGATIVE ng/mL (Cutoff 1); Cocaine NEGATIVE ng/mL (Cutoff 30); Methadone NEGATIVE ng/mL (Cutoff 40); Methamphetamines NEGATIVE ng/mL (Cutoff 30); Opiates NEGATIVE ng/mL (Cutoff 30); Phencyclidine NEGATIVE ng/mL (Cutoff 15)
[2019-05-27] MEDS: *HR* Heparin 5,000 UNIT/ML VIAL SQ SCH (18:13)
[2019-05-27] MEDS ORDERED: NON-FORMULARY MEDICATION 1 EACH EACH (Gabapentin [Neurontin] 800 MG) PO SCH (21:00)
[2019-05-27] MEDS: Gabapentin 400 MG CAPSULE PO SCH (21:36)
[2019-05-27] MEDS: Insulin DETEMIR 100 UNIT/ML X5UNITS SQ SCH (21:36)
[2019-05-27] MEDS: Mirtazapine 15 MG TABLET PO SCH (21:36)
[2019-05-28] MEDS: *HR* Heparin 5,000 UNIT/ML VIAL SQ SCH (06:13)
[2019-05-28] MEDS ORDERED: Loratadine/Pseudophed (12 HR) 1 EACH TABLET PO ONE (09:04)
[2019-05-28] MEDS: Aspirin Enteric Coated 81 MG Tablet PO SCH (09:06)
[2019-05-28] MEDS: Gabapentin 400 MG CAPSULE PO SCH (09:06)
[2019-05-28] MEDS: Insulin DETEMIR 100 UNIT/ML X5UNITS SQ SCH (09:06)
[2019-05-28] MEDS: Insulin LISPRO 300 UNITS/3 ML VIAL SQ SCH ×2 (09:08→09:09)
[2019-05-28] MEDS: Dorzolamide/Timolol OPTH 10 ML BOTTLE BOTH EYES SCH (09:09)
[2019-05-28] MEDS ORDERED: Tiotropium 18 MCG inhalation IH SCH (10:00)
[2019-05-28 10:33] VITALS: BP 151/84
== END 2019-05-28 12:51 | disposition home or self-care (01) | DRG 637 ==
LOC: EMEROOARM 17:53 → ICNU 17:53 → SUATTDRO 23:11 → 3ANU 05-26 15:56
PROVIDERS: ADMIT Internal Medicine; ATTEND Internal Medicine